=== PATIENT | female | born 1950 | race Caucasian/White ===

== ENCOUNTER 2022-04-05 20:30 | Emergency (ER) | payer MEDICARE, BC, SELFPAY ==
[2022-04-05 20:54] VITALS: BP 155/74; PULSE 63; TEMP 36.4; O2SAT 95; BMI 45.5
--- NOTE | 2022-04-05 21:34 | ED.NURSE ---
Vomited on arrival to ED room.
[2022-04-05 23:02] LABS: PCR FLU A Negative PCR FLU A (Negative); PCR FLU B Negative PCR FLU B (Negative); PCR RSV POSITIVE PCR RSV (Negative)
[2022-04-05 23:06] VITALS: BP 138/71; RESP 18
[2022-04-05 23:10] LABS: SARS PCR* Negative SARS-CoV-2 (Negative)
--- NOTE | 2022-04-05 23:34 | ED_ITS ---
HPI - URI/Sore Throat General Chief Complaint: Cough Stated Complaint: Coughing,Vomiting,Weakness Time Seen by Provider: 04/05/22 21:28 History of Present Illness HPI Narrative: Pt is a 72 year old woman who comes in with a 4 day history of cough. No significant fever has been noted. The cough is nonproductive. She has been eating and drinking without difficulty. Pt has no shortness of breath. Pt has no rash. She has developed nonbloody vomiting today. Pt has no abd pain or change in her bowels. No other pain. Pt has taken no medications at home. Related Data Home Medications Medication Instructions Recorded Confirmed albuterol sulfate 90 mcg/actuation inhalation 04/05/22 aerosol inhaler (Ventolin HFA) amlodipine 5 mg tablet mg 04/05/22 bupropion HCl 150 mg tablet,12 hr mg PO 04/05/22 sustained-release chlorthalidone 25 mg tablet mg 04/05/22 fluticasone 232 mcg-salmeterol 14 inh inhalation 04/05/22 mcg/actuation breath activated powdr gabapentin 300 mg capsule mg 04/05/22 metoprolol succinate 25 mg mg PO 04/05/22 tablet,extended release 24 hr montelukast 10 mg tablet mg 04/05/22 potassium chloride 10 mEq meq PO 04/05/22 tablet,extended release rosuvastatin 10 mg tablet mg 04/05/22 Allergies Allergy/AdvReac Type Severity Reaction Status Date / Time fentanyl Allergy Nausea Verified 04/05/22 20:59 asprin Allergy Severe Anaphylaxis Uncoded 04/05/22 20:59 Review of Systems Status of ROS: Reports: 10 or more systems reviewed and unremarkable except as noted in History and below [facility] Medical History (Updated 04/05/22 @ 23:41 by Ruiz Kitchen MD) Asthma Depression Hyperlipidemia Hypertension Social History Smoking Status: Former smoker Second hand tobacco smoke exposure: No How often do you have a drink containing alcohol: never AUDIT-C Alcohol total score: 0 Non-prescribed substance use: denies use service: No Exam Narrative: Exam Narrative: EXAM GENERAL: Patient appears comfortable and well. EYES: No scleral icterus. ENT: Tympanic membranes and oropharynx normal. THYROID: no thyroid nodules or thyromegaly. LYMPH: No supraclavicular or cervical lymphadenopathy. SKIN: Visible skin seen during exam normal or with benign process only. EXT: No dependent lower extremity pedal edema. HEART: Regular rate and rhythm with no murmurs, rubs, or gallops. LUNGS: Clear to auscultation bilaterally with no crackles or wheezes. ABD: Soft, non tender, non distended. PSYCH: Good eye contact, speech is not pressured. Const: Vital Signs, click to edit/add: Vital Signs - 24 hr 04/05/22 20:54 04/05/22 23:06 Temperature 97.5 F L Pulse Rate [Pulse Oximeter] 63 Respiratory Rate 18 Blood Pressure [[facility] Upper [facility]] 155/74 H 138/71 Pulse Oximetry 95 Oxygen Delivery Me thod Room Air Course Course Hospital Course: Pt seen and examined. Viral testing positive for RSV and negative for Influenza and COVID. Vital Signs Vital signs: Initial Vital Signs Temperature 97.5 F L 04/05/22 20:54 Temperature Source Oral 04/05/22 20:54 Pulse Rate 63 04/05/22 20:54 Blood Pressure 155/74 H 04/05/22 20:54 Blood Pressure Mean 101 04/05/22 20:54 Pulse Oximetry 95 04/05/22 20:54 Oxygen Delivery Method 04/05/22 20:54 Vital Signs Temperature 97.5 F L 04/05/22 20:54 Pulse Rate 63 04/05/22 20:54 Blood Pressure 155/74 H 04/05/22 20:54 Pulse Oximetry 95 04/05/22 20:54 Oxygen Delivery Method 04/05/22 20:54 Temperature 97.5 F L 04/05/22 20:54 Pulse Rate 63 04/05/22 20:54 Respiratory Rate 18 04/05/22 23:06 Blood Pressure 138/71 04/05/22 23:06 Pulse Oximetry 95 04/05/22 20:54 Oxygen Delivery Method 04/05/22 20:54 MDM - URI/Sore Throat MDM Narrative Medical decision making narrative: Pt presents with cough for four days. Normal exam and vital signs. No hypoxia. Testing positive for RSV. Will treat symptomatically with addition of Zofran ODT with PCP follow up. Differential Diagnosis Differential diagnosis: Likely upper respiratory infection, otitis media, sinusitis, viral infection, bronchitis and influenza Lab Data Labs: Lab Results 04/05/22 Range/Units 21:10 SARS-CoV-2 (PCR) Negative SARS-CoV-2 (Negative) Influenza Type A (PCR) Negative PCR FLU A (Negative) Influenza Type B (PCR) Negative PCR FLU B (Negative) RSV (PCR) POSITIVE PCR RSV A (Negative) Discharge Plan Discharge Clinical Impression: Respiratory syncytial virus (RSV) Patient Disposition: Home, Self-Care Condition: Stable Instructions: Respiratory Syncytial Virus (ED) Additional Instructions: Zofran as needed for vomiting Tyelnol Motrin Rest OTC Robitussin DM as directed Activity Level: No Restrictions Discharge Diet: Regular Prescriptions: No Action bupropion HCl 150 mg tablet sustained-release 12 hr PO Label Comments: TAKE ONE TABLET BY MOUTH TWICE DAILY amlodipine 5 mg tablet Label Comments: TAKE ONE TABLET BY MOUTH ONE TIME DAILY albuterol sulfate [Ventolin HFA] 90 mcg/actuation HFA aerosol inhaler INHALATION Label Comments: Inhale 2 Puffs by mouth every 4 hours if needed for Shortness of Breath or Wheezing. potassium chloride 10 mEq tablet extended release PO Label Comments: TAKE TWO TABLETS by mouth TWICE DAILY WITH MEALS chlorthalidone 25 mg tablet Label Comments: TAKE ONE TABLET BY MOUTH ONE TIME DAILY gabapentin 300 mg capsule Label Comments: TAKE TWO CAPSULES BY MOUTH DAILY AT BEDTIME montelukast 10 mg tablet Label Comments: TAKE ONE TABLET BY MOUTH ONE TIME DAILY AT BEDTIME metoprolol succinate 25 mg tablet extended release 24 hr PO Label Comments: TAKE ONE TABLET BY MOUTH ONE TIME DAILY rosuvastatin 10 mg tablet Label Comments: TAKE ONE TABLET BY MOUTH ONE TIME DAILY AT BEDTIME fluticasone propion-salmeterol 232-14 mcg/actuation aerosol powdr breath activated INHALATION Label Comments: INHALE ONE PUFF BY MOUTH TWICE DAILY Follow Up/Referrals: Suellen Chavira DO [Primary Care Provider] - Stand Alone Forms: [employer] Info Instructions
[2022-04-05 23:48] VITALS: BP 126/82; PULSE 72; RESP 20
== END 2022-04-05 23:50 | disposition home or self-care (01) ==
PROVIDERS: Emergency Provider Internal Medicine; PCP Family Medicine
DX: R05.9 Cough, unspecified (principal); B97.4 Respiratory syncytial virus as the cause of diseases classified elsewhere
CPT/HCPCS: 87502; 87634; 87635; 99283

== ENCOUNTER 2023-02-27 09:15 | Outpatient (CLI) | payer MEDICARE, BC, SELFPAY ==
--- NOTE | 2023-02-27 10:30 | W.ANESCHARGE ---
Anesthesia Charges Start Date/Time Anesthesia Start Date: 02/27/23 Anesthesia Start Time: 10:03 Stop Date/Time Anesthesia Stop Date: 02/27/23 Anesthesia Stop Time: 10:30
== END 2023-02-27 09:16 | disposition home or self-care (01) ==
LOC: OP CLINIC 09:16
PROVIDERS: PCP Family Medicine; Visit Provider Internal Medicine Gastroenterology
DX: Z12.11 Encounter for screening for malignant neoplasm of colon (principal); K63.5 Polyp of colon; Z85.038 Personal history of other malignant neoplasm of large intestine; Z98.0 Intestinal bypass and anastomosis status
CPT/HCPCS: 00811; 45380; 88305; J2704

== ENCOUNTER 2023-03-24 10:51 | Outpatient (CLI) | payer MEDICARE, BC, SELFPAY ==
--- NOTE | 2023-03-24 11:00 | CRLHL7_ITS ---
For Patients: As a result of the Century Cures Act, medical imaging exams and procedure reports are released immediately into your electronic medical record. You may view this report before your referring provider. If you have questions, please contact your health care provider. Indication: Dyspnea on exertion Technique: Noncontrast CT chest Please note that all CT scans at this facility use dose modulation, iterative reconstruction, and/or weight-based dosing when appropriate to reduce radiation dose to as low as reasonably achievable. Comparison: 12/01/2020 Findings: Chronic changes left hemithorax with chronic loculated pleural fluid collection with dystrophic calcification of the visceral and parietal pleura. Chronic scarring within the left lung. No new findings. Similar lymph nodes in the mediastinum and left adnexa. Postop changes upper abdomen. No fracture. Impression: No significant change since the prior examination with chronic loculated left pleural effusion and calcified pleura. Stable scarring left lower lobe. Please note that all CT scans at this facility use dose modulation, iterative reconstruction, and/or weight-based dosing when appropriate to reduce radiation dose to as low as reasonably achievable. Dictated by Kobe Quach MD @ 03/24/2023 3:38:54 PM (Electronically Signed)
== END 2023-03-24 10:52 | disposition home or self-care (01) ==
LOC: CT 10:51
PROVIDERS: PCP Family Medicine; Visit Provider Internal Medicine Pulmonary Disease
DX: R06.09 Other forms of dyspnea (principal); J90 Pleural effusion, not elsewhere classified
CPT/HCPCS: 71250

== ENCOUNTER 2023-05-23 13:43 | Outpatient (CLI) | payer MEDICARE, BC, SELFPAY ==
--- OUTSIDE RECORDS SUMMARY | 2023-05-26 16:43 | XMS_ITS | Clinical Summary ---
Author Name Unknown Organization [facility] Address [place], [place] [address] Care Team Providers Care Automatic Fabric Cutter Name Role Phone Suellen Chavira DO Primary Care Provider [phone] Allergies Active Allergy Reactions Criticality Noted Date [...] Encounters Date Type Department Care Team Description 05/24/2023 4:00 PM [facility] Ancillary Procedure [facility] [address] [place] [address] Arrived 05/24/2023 Orders Only [facility] Scanner 1 scan: (1-Ord) [facility], CHEST, 05/24/2023 05/23/2023 Orders Only [facility] Scanner 1 scan: (1-Ord) [facility], CT FACIAL BONES WO CON, 05/23/2023 05/23/2023 Orders Only [facility] Scanner 1 scan: (1-Ord) [place], HEAD/BRAIN WO, 05/23/2023 05/23/2023 Orders Only [facility] Scanner 1 scan: (1-Ord) [facility], XR KNEE RT, 05/23/2023 05/23/2023 Orders Only [facility] Scanner 1 scan: (1-Ord) [facility], XR SHOULDER LT, 05/23/2023 05/23/2023 Orders Only [facility] Scanner 1 scan: (1-Ord) [place], CERVICAL SPINE WO, 05/23/2023 04/06/2023 3:20 PM [facility] HAND Ancillary Procedure [facility] [address] [place] [address] 04/06/2023 Travel 03/28/2023 Orders Only [facility] [address] [place] [address] Charlie Masters, 1 scan: (1-Ord) [place], CT CHEST WO CON, 03/24/2023 03/16/2023 11:30 AM [facility] HAND Office Visit [facility] [address] [place] [address] Charlie Masters DO Consult; Follow Up (Testing review/completes) 03/16/2023 Telephone [facility] [address] [facility] [address] [facility] [address] [place] [address] Charlie Masters, Imaging (Needs CT chest) 03/15/2023 Travel 02/27/2023 9:15 AM [facility] HAND Procedure Only [facility] [address] [place] [address] Bertin Hill MD 02/27/2023 Lab Requisition [facility] [phone] Bertin Hill MD 02/23/2023 Refill [facility] [address] [place] [address] Bertin Hill MD Refill Request (Gavilyte-g) from Last 3 Months Immunizations Name Administration Dates Next Due AMB INFLUENZA IIV3 (AGE 65+ YRS) PF (Flu Clinic Only) 01/30/2018 Amb Influenza, Inactivated A IIV4 (Age 65+ Years) Preserv Free 01/27/2020 COVID-19 Vaccine Spikevax (M oderna 50mcg/0.5mL) 12YO+ [id number] Formula PF 02/21/2023 COVID-19 vaccine (Moderna 10 [...] Comments Blood Pressure 128/82 03/16/2023 11:41 AM [facility] Pulse 70 03/16/2023 11:41 AM [facility] HAND Temperature 36.8 ??C (98.2 ??F) 02/21/2023 10:[address] Respiratory Rate 18 10/05/2017 3:57 PM CDT Oxygen Saturation 95% 03/16/2023 11:41 AM [facility] HAND Inhaled Oxygen Concentration - - Weight 132 kg (291 lb) 03/16/2023 11:41 AM [facility] Height 160 cm (5' 3) 03/16/2023 11:41 AM [facility] HAND Body Mass Index 51.55 03/16/2023 11:41 AM [facility] HAND Plan of Treatment Upcoming Encounters Date Type Department Care Team (Late st Contact Info) Description 05/30/2023 2:20 PM [facility]LL HAND Office Visit [facility] [address] [place] [address] Suellen Chavira DO [address] [facility] [place] [address] Health Maintenance Due Date Last Done Comments Influenza for age 65+ 12/16/2022 12/02/2022 , 01/25/2022, 01/30/2021, Additional history exists Medicare Wellness for age 65+ 10/11/2023, 10/07/2021, 10/06/2020, Additional history exists Depression screening for age 12+ 11/17/2023 11/16/2022, 10/10/2022, 10/10/2022, Additional history exists BMI (ht and wt on same day) for age 18+ 03/16/2024 03/16/2023, 11/16/2022, 10/10/2022, Additional history exists Mammogram for age 45-75 04/06/2024 04/06/20, 03/14/2022, 03/08/2021, Additional history exists Lipids for age 45-75 10/11/2027 10/10/2022, 09/09/2021, 10/06/2020, Additional history exists Colonoscopy through age 75 02/28/202802/27, 02/27/2023, 10/16/2017, Additional history exists Tetanus booster 09/28/2030 09/28/2020, 07/2008, 01/06/1999 Hepatitis C screening for ag e 18-79 Completed 08/02/2013 Pneumococcal series for age 65+ Completed 9, 09/21/2016 Zoster (shingles) series for age 50+ Completed 09/11/2020, 04/24/2020, 03/08/2011 Tdap Completed 09/28/2020, 08/18/2008 DEXA/DXA scan for age 65+ Completed 2021, 09/22/2016, 08/31/2007 COVID-19 vaccine series Completed 02/22/20, 12/02/2022, 01/25/2022, Additional history exists Medical Devices Implanted Type Area Software Deployment Engineer Device Identifier Shelf Expiration Date Model / Serial / Lot Stent Biliary 10-5 Jamie Helton - [id number] Implanted:Qty: 1 on 09/27/2006 at [facility] Common Bile Duct [employer] [facility] CHBSO-10-5 # / / [id number] Procedures Procedure Name Priority Date/Time Associated Diagnosis Comments ECHO TTE COMPLETE WO CONTRAST Routine 05/24/2023 12:00 PM [facility] HAND New onset a-fib (HC) SCAN-RADIOLOGY REPORT 05/24/2023 12:00 AM [facility] HAND SCAN-CT INTERPRETATION 4 12:00 AM [facility] HAND SCAN-CT INTERPRETATION 4 12:00 AM [facility] HAND SCAN-RADIOLOGY REPORT 05/23/2023 12:00 AM SA[facility] HAND SCAN-RADIOLOGY REPORT 05/23/2023 12:00 AM [facility] HAND SCAN-CT INTERPRETATION 12:00 AM [facility] HAND XR MAMMO BILAT SCREENING Routine 04/06/2023 3:38 PM [facility] HAND Encounter for screening mammogram for malignant neoplasm of breast CT CHEST WO Routine 03/24/2023 12:00 AM [facility] HAND POWELL (dyspnea on exertion) Pleural effusion on left LAB TRACKING EVENT Routine 02/27/2023 10 :20 AM [facility] HAND PATH TISSUE EXAM Routine 02/27/2023 10:2 0 AM [facility] HAND COLONOSCOPY SCREENING Routine 02/27/2023 12:00 AM [facility] HAND Screening for colon cancer from Last 3 Months Results * ECHO TTE COMPLETE WO CONTRAST (05/24/2023 12:00 PM [facility] HAND) AORTIC VALVE MEAN PG 3 mmHg PEAK TR VELOCITY 3.1 m/s LVEDD 4.8 cm EJECTION FRACTION 55 - 60% Anatomical Region Laterality Modality Ultrasound 05/24/2023 11:2 6 AM [facility] HAND Narrative 05/24/2023 12:35 PM [facility] HAND ECHOCARDIOGRAM STUART M MARCUS ?Accession#: ?? [id number] : ?1950 73 years Study Date: ?? 05/24/2023 11:26:41 AM Gender: F ? BP: ? 134/75 mmHg Height: 160.00 cm ? BSA: ?2.25 m? ? ? Weight: 130.00 kg ? Tech: ? MCK ?Referring MD: FARZANA VALDES Site: ? [facility] Reading Location: [facility] Patient Location: Inpatient. Procedure: 2D, Color Doppler and Spectral Doppler. Indication for study: New onset Afib Cardiac Rhythm: Irregular.Study quality: Fair. Imaging limitations: This study was subject to imaging limitations due to lying in a supine position, body habitus and a prominent lung artifact. Final Impressions: 1. Normal LV size, mildly increased wall thickness, normal global systolic function with an estimated EF of 55 - 60%. 2. Right ventricular cavity size is not well visualized, global systolic RV function is normal. 3. Normal left atrium size. 4. The aortic valve is normal, no stenosis and trivial regurgitation. 5. The mitral valve is sclerotic, trace mitral regurgitation. 6. Tricuspid valve is normal. 7. The ascending aorta is dilated with a maximal diameter of 4.5 cm. 8. Moderately increased estimated pulmonary pressures by tricuspid regurgitation velocity and right atrial pressure (37 mmHg plus RAP). 9. No pericardial effusion. Chamber Sizes and Function Normal left ventricular size, mildly increased wall thickness, normal global systolic function with an estimated EF of 55 - 60%. Left atrial size is normal. Right ventricular cavity size is not well visualized, global systolic RV function is normal. The right atrium is normal. The pulmonary artery is of normal size and origin. The sinus of Valsalva is normal sized. The ascending aorta is dilated. Valves, RV Pressures and Diastolic Function The aortic valve is normal in structure, no stenosis and trivial regurgitation. The mitral valve is sclerotic, trace mitral regurgitation. Diastolic function assessment not performed. The tricuspid valve is normal in structure. Tricuspid regurgitation is mild regurgitation. The tricuspid regurgitant velocity is 3.1 m/s, the estimated right ventricular systolic pressure is 37 mmHg plus right atrial pressure. There is moderately increased estimated pulmonary pressure by tricuspid regurgitation velocity and right atrial pressure. The pulmonic valve is normal. Mild pulmonary regurgitation. Masses, Effusion, Shunts There is no pericardial effusion. The inferior vena cava is normal sized, respiratory size variation greater than 50%. Interatrial septum is not well visualized. MEASUREMENTS AND CALCULATIONS 2-D Measurements and LV Function: LVID (d) 4.8 cm LV FS% (2D) ?? 40 % LVID (s) 2.9 cm LVOT diameter 2.0 cm IVS (d) ??1.3 cm HR ?57 bpm LVPW (d) 1.0 cm RV Max 4C (d) 4.0 cm Ao Sinus 3.5 cm Asc Ao ?? 4.5 cm LA ? 5.3 cm Diastology: Mitral E Peak 1.0 m/s DT ? 193 msec Aortic Valve: Vmax ? 1.3 m/s ??SANCHEZ (V) ?? 2.22 cm? ? ? VTI ?0.29 m ?? SANCHEZ (I) ?? 2.19 cm? ? ? LVOT V max 0.9 m/s ??Max PG ?6 mmHg LVOT VTI ?? 0.20 m ?? Mean PG ?? 3 mmHg SV ? 63 ml ?Dim Index 0.70 SV index ?? 28 ml/m? ? ? CO ?3.6 l/min ?CI ?1.6 l/min/m? ? ? Mitral Valve: MVA ?3.9 cm? ? ? MV P 1/2 56 msec Tricuspid Valve and estimated PA pressures: TR Vmax 3.1 m/s TAPSE 3.0 cm TR maxG 37 mmHg . This study was interpreted by an [facility] accredited facility. CC: HIM (med records) [facility], Med/Surg - IP [facility]. ??Final ?? Procedure Note Marcy Juarez, [facility] - 05/24/2023 ECHOCARDIOGRAM STUART RITTER : 1950 73 years Study Date: 05/24/2023 11:26:41 AM Gender: F BP: 134/75 mmHg Height: 160.00 cm BSA: 2.25 m? ? ? Weight: 130.00 kg Tech: [facility] Referring MD: FARZANA VALDES Site: [facility] Reading Location: [facility] Patient Location: Inpatient. Procedure: 2D, Color Doppler and Spectral Doppler. Indication for study: New onset Afib Cardiac Rhythm: Irregular.Study quality: Fair. Imaging limitations: This study was subject to imaging limitations due tolying in a supine position, body habitus and a prominent lung artifact. Final Impressions: 1. Normal LV size, mildly increased wall thickness, normal globalsystolic function with an estimated EF of 55 - 60%. 2. Right ventricular cavity size is not well visualized, global systolicRV function is normal. 3. Normal left atrium size. 4. The aortic valve is normal, no stenosis and trivial regurgitation. 5. The mitral valve is sclerotic, trace mitral regurgitation. 6. Tricuspid valve is normal. 7. The ascending aorta is dilated with a maximal diameter of 4.5 cm. 8. Moderately increased estimated pulmonary pressures by tricuspidregurgitation velocity and right atrial pressure (37 mmHg plus RAP). 9. No pericardial effusion. Chamber Sizes and Function Normal left ventricular size, mildly increased wall thickness, normalglobal systolic function with an estimated EF of 55 - 60%. Left atrialsize is normal. Right ventricular cavity size is not well visualized,global systolic RV function is normal. The right atrium is normal. Thepulmonary artery is of normal size and origin. The sinus of Valsalva isnormal sized. The ascending aorta is dilated. Valves, RV Pressures and Diastolic Function The aortic valve is normal in structure, no stenosis and trivialregurgitation. The mitral valve is sclerotic, trace mitral regurgitation.Diastolic function assessment not performed. The tricuspid valve is normalin structure. Tricuspid regurgitation is mild regurgitation. The tricuspidregurgitant velocity is 3.1 m/s, the estimated right ventricular systolicpressure is 37 mmHg plus right atrial pressure. There is moderatelyincreased estimated pulmonary pressure by tricuspid regurgitation velocityand right atrial pressure. The pulmonic valve is normal. Mild pulmonaryregurgitation. Masses, Effusion, Shunts There is no pericardial effusion. The inferior vena cava is normal sized,respiratory size variation greater than 50%. Interatrial septum is notwell visualized. MEASUREMENTS AND CALCULATIONS 2-D Measurements and LV Function: LVID (d) 4.8 cm LV FS% (2D) 40 % LVID (s) 2.9 cm LVOT diameter 2.0 cm IVS (d) 1.3 cm HR 57 bpm LVPW (d) 1.0 cm RV Max 4C (d) 4.0 cm Ao Sinus 3.5 cm Asc Ao 4.5 cm LA 5.3 cm Diastology: Mitral E Peak 1.0 m/s DT 193 msec Aortic Valve: Vmax 1.3 m/s SANCHEZ (V) 2.22 cm? ? ? VTI 0.29 m SANCHEZ (I) 2.19 cm? ? ? LVOT V max 0.9 m/s Max PG 6 mmHg LVOT VTI 0.20 m Mean PG 3 mmHg SV 63 ml Dim Index 0.70 SV index 28 ml/m? ? ? CO 3.6 l/min CI 1.6 l/min/m? ? ? Mitral Valve: MVA 3.9 cm? ? ? MV P 1/2 56 msec Tricuspid Valve and estimated PA pressures: TR Vmax 3.1 m/s TAPSE 3.0 cm TR maxG 37 mmHg . This study was interpreted by an [facility] accredited facility. CC: HIM (med records) [facility], Med/Surg - IP [facility]. Final Farzana Valdes MD ECHO ORD * SCAN-RADIOLOGY REPORT (05/24/2023 12:00 AM [facility] HAND) Only the most recent of3 resultswithin the time period is included. Anatomical Region Laterality Modality Other Scanner OTHER * SCAN-CT INTERPRETATION (05/23/2023 12:00 AM [facility] HAND) Only the most recent of3 resultswithin the time period is included. Anatomical Region Laterality Modality Other Scanner OTHER * XR MAMMO BILAT SCREENING (04/06/2023 3:38 PM [facility] HAND) Anatomical Region Laterality Modality BREASTS, Breast Left, Breast Right Bilateral Mammography Impressions 04/07/2023 9:15 AM SA[facility]LL HAND ??There is no radiographic evidence for malignancy. ??Recommend annual mammograms. MAMMOGRAM ASSESSMENT: ??ACR 1 Negative PATIENTS: You will also receive a letter with your examination results in an easy to read format. ??If you have questions about your results, please contact your referring provider. Narrative 04/07/2023 9:15 AM [facility] HAND For Patients: As a result of the Cures Act, medical imaging exams and procedure reports are released immediately into your electronic medical record. You may view this report before your referring provider. If you have questions, please contact your health care provider. XR MAMMO BILAT SCREENING [[id number]] CLINICAL HISTORY: ??This is an asymptomatic 73 y.o. patient. INDICATION FOR EXAM: Mammogram Screening. TECHNIQUE: CC & MLO views were obtained. ??This study was evaluated with the assistance of Computer-Aided Detection. COMPARISON FILM: Yes 03/14/22 [employer] 03/08/21 [facility] [employer] FINDINGS: ??The breasts have scattered areas of fibroglandular density. There are no dominant masses, suspicious micro calcifications or areas of architectural distortion. Suellen Chavira DO MAMMO * CT CHEST WO (03/24/2023 12:00 AM [facility] HAND) Anatomical Region Laterality Modality CHEST, THORAX, HEART Computed To mography Charlie Masters DO CT * LAB TRACKING EVENT (02/27/2023 10:20 AM [facility] HAND) Other (Other) Client Collect / Unknown 02/27/2023 10:20 AM [facility] HAND 02/27/2023 9:28 PM [facility] HAND Bertin Hill MD LAB BILL ONLY [facility] [address] [place] [address], * PATH TISSUE EXAM (02/27/2023 10:20 AM SA[facility] HAND) Case Report Pathology Report ?Case: [id number] ? Authorizing Provider: ??Bertin Hill MD ?? Collected: ? 02/27/2023 1020 ? Ordering Location: ? [facility] ?Received: ?02/28/2023 1215 ? Pathologist: ? Dwain Shah, ? MD ? Specimens: ?? A) - Transverse Colon Polyp ? B) - Rectal-Sigmoid Polyp ? 2023 4:10 PM SA[facility]LL HAND [facility]AL LABORATORY Final Diagnosis A) COLON, [...] ?? c. Retrieval: Complete 2023 4:[address] [facility] Clinical Information Ms. Ritter is a 73 y.o. undergoing high risk colon cancer surveillance due to a personal history of colon cancer. 2023 4:[address] [facility] Gross Description A) Received in formalin are 3 aivles mucosal fragments averaging 3 mm in greatest [...] Han 02/28/2023 1:26 PM 2023 4:10 PM [facility] Microscopic Description The final diagnosis is based on microscopic examination of appropriate sections of all specimens. 2023 4:10 PM [facility] Additional Information Interpreted at [facility], Central Laboratory - [address], [place] [address] 2023 4:10 PM [facility] Other (Transverse Colon Polyp) 02/27/2023 10:20 AM SA[facility]LL HAND 02/28/2023 12:15 PM [facility] HAND Specimen (specimen) (Rectal-Sigmoid Polyp) 02/27/2023 10:20 AM SA[facility]LL HAND 02/28/2023 12:15 PM [facility] HAND Bertin Hill MD PATHOLOGY/CYTOLOG Y [facility] [address] [place] [address], * COLONOSCOPY SCREENING [[id number]] (02/27/2023 12:00 AM SAW[facility]LL HAND) Suellen Chavira DO GI PROCEDURE ORD from Last 3 Months Advance Directives Documents on File Type Date Recorded Patient Manager Valuation Expl anation Healthcare Directive 07/02/2012 1:17 PM [employer] OF TRICHOLOGIST FOR HEALTH CARE Latest Code Status on File Code Status Date Activated Date Inactivated Comments Full Code 09/27/2006 10:32 AM 09/27/2006 3:46 PM Care Teams Automatic Fabric Cutter Relationship Specialty Start Date End Date Suellen Chavira DO [address] [place] [address] PCP - General Family Practice 10/16/17
--- OUTSIDE RECORDS SUMMARY | 2023-05-26 16:44 | XMS_ITS | Clinical Summary ---
Author Name Unknown Organization [facility] Address [address] [place], [place] [id number] Phone [email or web address] Care Team Providers Care Factory Worker Name Role Phone Unavailable Primary Care Provider [...]
== END 2023-05-23 13:44 | disposition home or self-care (01) ==
LOC: AMB 05-26 16:40
PROVIDERS: PCP Family Medicine; Visit Provider Student in an Organized Health Care Education/Training Program
DX: S59.912A Unspecified injury of left forearm, initial encounter (principal); S09.93XA Unspecified injury of face, initial encounter; W01.0XXA Fall on same level from slipping, tripping and stumbling without subsequent striking against object, initial encounter; Y92.002 Bathroom of unspecified non-institutional (private) residence as the place of occurrence of the external cause
CPT/HCPCS: A0425; A0427

== ENCOUNTER 2023-05-23 14:37 | Observation (INO) | payer MEDICARE, BC, SELFPAY ==
[2023-05-23 14:45] VITALS: BP 136/59; PULSE 57; RESP 22; TEMP 36.6; O2SAT 92; BMI 50.5
[2023-05-23] MEDS: MORPHINE 4 MG/ML INJ IVP ×2 (15:05→16:51)
--- NOTE | 2023-05-23 15:05 | CRLHL7_ITS ---
For Patients: As a result of the Century Cures Act, medical imaging exams and procedure reports are released immediately into your electronic medical record. You may view this report before your referring provider. If you have questions, please contact your health care provider. Indication: Fall Technique: Noncontrast axial CT of the facial bones, with coronal and sagittal reformats. Comparison: Same day CT head Findings: Mildly comminuted bilateral nasal bone fractures. No radiopaque foreign body or suspicious soft tissue air. No obvious nasal septal fracture or septal hematoma. Intact inferior nasal spine of the maxilla. Remaining facial bones appear grossly intact. Atraumatic appearance of the orbits and orbital contents. Bilateral lens implants. Aside from small left posterior ethmoid air cell mucous retention cyst, clear sinonasal cavities. Smooth rightward nasal septal deviation, anatomic variant. Shallow rightward projecting nasal septal spur, slightly deforming the right inferior turbinate. Clear mastoid air cells and middle ear cavities. Impression: 1. Mildly comminuted bilateral nasal bone fractures. 2. No evidence of nasal septal fracture or significant septal hematoma. Please note that all CT scans at this facility use dose modulation, iterative reconstruction, and/or weight-based dosing when appropriate to reduce radiation dose to as low as reasonably achievable. Dictated by Gina Conn MD @ 05/23/2023 4:54:48 PM (Electronically Signed)
--- NOTE | 2023-05-23 15:05 | CRLHL7_ITS ---
For Patients: As a result of the Century Cures Act, medical imaging exams and procedure reports are released immediately into your electronic medical record. You may view this report before your referring provider. If you have questions, please contact your health care provider. INDICATION: Tenderness after fall. COMPARISON: None. TECHNIQUE: Two views of the left shoulder. FINDINGS: Osteopenia. Moderate degenerative changes of the glenohumeral and acromioclavicular joints. Moderately displaced fracture of the surgical neck of the left humerus. Partial visualization of small to moderate loculated left pleural effusion, which was described on CT report 09/25/2006. IMPRESSION: 1. Moderately displaced fracture of the surgical neck of the left humerus. 2. Partial visualization of small to moderate loculated left pleural effusion, which was described on CT report 09/25/2006. These images are not available for direct comparison. Consider dedicated chest radiograph for further evaluation. Dictated by Zackery Kent MD @ 05/23/2023 5:44:06 PM (Electronically Signed)
--- NOTE | 2023-05-23 15:05 | CRLHL7_ITS ---
For Patients: As a result of the Century Cures Act, medical imaging exams and procedure reports are released immediately into your electronic medical record. You may view this report before your referring provider. If you have questions, please contact your health care provider. INDICATION: Fall TECHNIQUE: Noncontrast axial CT of the head. Coronal and sagittal reformats. Bone and soft tissue algorithms. COMPARISON: Same-day CT face FINDINGS: The ventricles and cortical sulci are diffusely prominent, compatible with generalized cerebral volume loss. No acute intracranial hemorrhage or abnormal extra-axial fluid collection identified. No midline shift, hydrocephalus, or herniation. Preserved patton-white matter differentiation. Patchy hypoattenuation throughout the supratentorial white matter, typical of chronic microangiopathy. Calcific and cranial atherosclerotic plaquing. Midline structures are unremarkable. Bony calvarium appears grossly intact. Hyperostosis frontalis interna. Facial structures are detailed in a separate report. IMPRESSION: 1. No CT evidence of skull fracture or acute intracranial hemorrhage. 2. Moderate generalized cerebral volume loss and mild chronic microangiopathy changes. Please note that all CT scans at this facility use dose modulation, iterative reconstruction, and/or weight-based dosing when appropriate to reduce radiation dose to as low as reasonably achievable. Dictated by Gina Conn MD @ 05/23/2023 4:50:29 PM (Electronically Signed)
--- NOTE | 2023-05-23 15:05 | CRLHL7_ITS ---
For Patients: As a result of the Century Cures Act, medical imaging exams and procedure reports are released immediately into your electronic medical record. You may view this report before your referring provider. If you have questions, please contact your health care provider. Indication: Fall Technique: Noncontrast axial CT of the cervical spine with coronal and sagittal reformats. Comparison: Same day CT head Findings: Door Liner Helper images demonstrate atypical appearance of the left proximal humerus, concerning for age-indeterminate fracture. Preserved cervical lordosis. No significant spondylolisthesis. Craniocervical junction appears within normal limits. No acute fracture identified. Chronic appearing superior endplate deformity at T1, attributed to degenerative Schmorl`s node. Incidental presumed bone island at C3. Shallow central disc protrusion at C2-3 contributing to mild spinal canal narrowing. Remainder of the spinal canal appears grossly patent. No high-grade neural foraminal narrowing identified. No apical pneumothorax identified. Impression: 1. Deformed appearance of the left proximal humerus on the saw offbearer images, concerning for age-indeterminate fracture. 2. No CT evidence of acute fracture or traumatic malalignment in the cervical spine. Please note that all CT scans at this facility use dose modulation, iterative reconstruction, and/or weight-based dosing when appropriate to reduce radiation dose to as low as reasonably achievable. Dictated by Gina Conn MD @ 05/23/2023 5:01:40 PM (Electronically Signed)
--- OUTSIDE RECORDS SUMMARY | 2023-05-23 15:05 | XMS_ITS | Clinical Summary ---
Author Name Unknown Organization [facility] Address [place], [place] [address] Care Team Providers Care Linen Tech Name Role Phone Suellen Chavira DO Primary Care Provider [phone] Allergies Active Allergy Reactions Criticality Noted Date Comments Aspirin Angioedema 04/20/2005 Throat swells. Lips swell- per patient tolerated ibuprofen Fentanyl Nausea And Vomiting 11/08/2006 *had small amount, tolerated well* Lisinopril Hives Medium 11/30/2017 Medications Medication Sig Dispensed Refills Start Date End Date Status Cholecalciferol, Vitamin D3, (VITAMIN D) 400 unit capsule Take 2,000 units by mouth once daily. 0 08/02/2010 Active loratadine 10 mg cap Take 1 Capsule by mouth at bedtime. 0 07/22/2021 Active CPAPIndications:CLARISSA (obstructive sleep apnea) CPAP machine for home use at pressure 5-15cm/H2O, nasal mask x1/3month with nasal cushion x2/mo 1 Each 11 06/07/2022 Active rosuvastatin (CRESTOR) 10 mg tabletIndications:Hy perlipidemia, unspecified hyperlipidemia type Take 1 Tablet (10 mg) by mouth at bedtime. 90 Tablet 3 10/10/2022 Active potassium chloride (K-TAB) 10 mEq extended-release tabletIndications:HT N (hypertension) TAKE TWO TABLETS BY MOUTH TWICE A DAY WITH MEALS 360 Tablet 3 10/10/2022 Active montelukast (SINGULAIR) 10 mg tabletIndications:Se asonal allergies Take 1 Tablet (10 mg) by mouth at bedtime. 90 Tablet 3 10/10/2022 Active gabapentin (NEURONTIN) 300 mg capsuleIndications:R estless legs TAKE TWO CAPSULES BY MOUTH EVERY DAY AT BEDTIME 180 Capsule 3 10/10/2022 Active fluticasone propion-salmeterol (AIRDUO RESPICLICK) 232-14 mcg/actuation inhalerIndications:A sthma, unspecified asthma severity, unspecified whether complicated, unspecified whether persistent Inhale 1 Puff by mouth two times daily. 3 Each 10/10/2022 Active chlorthalidone (HYGROTON) 25 mg tabletIndications:HT N (hypertension) Take 1 Tablet (25 mg) by mouth once daily. 90 Tablet 3 10/10/2022 Active amLODIPine (NORVASC) 5 mg tabletIndications:HT N (hypertension) Take 1 Tablet (5 mg) by mouth once daily. 90 Tablet 10/10/2022 Active albuterol HFA (Ventolin HFA) 90 mcg/actuation inhalerIndications:C hronic bronchitis, unspecified chronic bronchitis type (HC) Inhale 2 Puffs by mouth every 4 hours if needed for Shortness of Breath 1st choice or Wheezing 1st choice. 1 Each 1 10/10/2022 Active buPROPion (WELLBUTRIN XL) 150 mg Extended-Release tabletIndications:De pression, recurrent (HC) Take 150mg with 300mg to equal 450mg daily 90 Tablet 3 10/10/2022 Active metoprolol succinate (TOPROL XL) 25 mg Sustained-Release tabletIndications:HT N (hypertension) Take 1 Tablet (25 mg) by mouth once daily. 90 Tablet 10/10/2022 Active buPROPion (WELLBUTRIN XL) 300 mg Extended-Release tabletIndications:Dy sthymic disorder Take 300mg with 150mg daily to equal 450mg daily. 90 Tablet 3 10/10/2022 Active miscellaneous medical supply (Blood Pressure Cuff) miscIndications:HTN (hypertension) As directed. BP cuff for home use. Diagnosis: Hypertension 1 Each 0 02/21/2023 Active polyethylene glycol-electrolyte (GOLYTELY) 236-22.74-6.74 -5.86 gram suspensionIndication s:Encounter for screening colonoscopy Drink 2 liters the day before the procedure and 2 liters 6 hours prior to procedure. 4000 mL 0 02/23/2023 Active calcium carbonate/vitamin D3 (CALCIUM CHEW ORAL) Take 1 Each by mouth two times daily. 0 Active Active Problems Problem Noted Date Diagnosed Date Chronic bronchitis, unspecified chronic bronchit is type 04/26/2022 Depression, recurrent 10/07/2021 Obesity, morbid 10/07/2021 History of colon cancer 10/07/2021 Overview: Colonoscopy 02/2023 TA, repeat in 5 years CLARISSA 11/11/2020 AHI-45 nasal mask - standard 12/14 Restless legs syndrome (RLS) 12/14/2020 Asthma 12/14/2020 ACP (advance care planning) 07/02/2012 Overview: Has done living will. Vitamin D deficiency 09/14/2011 Knee osteoarthritis 08/19/2011 Unspecified essential hypertension 08/12/2006 Dysthymic disorder 08/12/2006 Resolved Problems Problem Noted Date Diagnosed Date Resolved Date COPD, moderate 05/07/2019 12/14/2020 Overview: Saw Pulmonology and diagnosed with asthma and not COPD- October 2020 On PFTs Apr 2019, started on sprivia and albuterol Osteoarthrosis, unspecified whether generalized or localized, lower leg 01/26/2011 05/0 07/2011 Malignant neoplasm of colon, unspecified site 08/13/19 07 10/07/2021 Overview: stage C disease with positive nodes, treated with surgical resection and adjuvant FOLFOX chemo x 6 months Colonoscopy every 3 years per recommendation of oncology. See most recent PJ brown note. Colonoscopy 07/2012 normal repeat in 5 years Colonoscopy 10/2017 hyperplastic polyp, repeat in 5 years Unspecified sleep apnea 08/12/200611/17 Encounters Date Type Department Care Team Description 04/06/2023 3:20 PM PRODUCT SAFETY MANAGER Ancillary Procedure [facility] [address] [place] [address] 04/06/2023 Travel 03/28/2023 Orders Only [facility] [address] [place] [address] Charlie Masters, DO 1 scan: (1-Ord) BRITTANY, CT CHEST WO CON, 03/24/2023 03/16/2023 11:30 AM PRODUCT SAFETY MANAGER Office Visit [facility] [address] [place] [address] Charlie Masters DO Consult; Follow Up (Testing review/completes) 03/16/2023 Telephone [facility] [address] [place] [phone] Charlie Masters DO Imaging (Needs CT chest) 03/15/2023 Travel 02/27/2023 9:15 AM PRODUCT SAFETY MANAGER Procedure Only [facility] at [facility] [address] [place] [address] Bertin Hill MD 02/27/2023 Lab Requisition [facility] [phone] Bertin Hill MD 02/23/2023 Refill [facility] [address] [place] [address] Bertin Hill MD Refill Request (Gavilyte-g) 02/21/2023 10:25 AM PRODUCT SAFETY MANAGER Preop Visit [facility] [address] [place] [address] Suellen Chavira DO Pre-Op Exam (colonoscopy 02/27/23); Immunization/Inject ion 02/21/2023 Travel from Last 3 Months Immunizations Name Administration Dates Next Due AMB INFLUENZA IIV3 (AGE 65+ YRS) PF (Flu Clinic Only) 01/30/2018 Amb Influenza, Inactivated A IIV4 (Age 65+ Years) Preserv Free 01/27/2020 COVID-19 Vaccine Spikevax (M oderna 50mcg/0.5mL) 12YO+ [id number] Formula PF 02/21/2023 COVID-19 vaccine (Moderna 10 0mcg/0.5mL) PF, MDV 07/10/2020,06/12/2020 COVID-19 vaccine (Moderna 50 mcg/0.5mL) 12YO+ BIVALENT PF, MDV 12/02/2022 Influenza A (H1N1), Inactivated 05/05/2009 Influenza, High-dose Quadriv alent Inactivated 12/02/2022,01/25/2022,01/30/2021 Influenza, IIV3 (Age 6-35 mos) 02/19/2009 Influenza, IIV3 (Age >=3 years) 02/05/2014,01/15 Influenza, Inactivated IIV3 (Age 65+ Years) Preserv Free 01/04/2019,01/25/2017 Pneumococcal Poly,23-Valent (Pneumovax) 10/02/19 19 Pneumococcal conj 13-Valent (Prevnar 13) 017 Td (Age >=7 Years) 01/06/1999 Tdap 09/28/2020,08/18/2008 Zoster (Shingrix-RZV, recombinant) 09/11/2020, Zoster (Zostavax-ZVL, live) 03/08/2011 Family History Medical History Relation Name Comments Cancer-colon Brother Other Brother shanda's disea se Cancer-colon Father Cancer-colon Mother Stroke Paternal Grandfather Heart Disease Paternal Grandmother pacema ker Cancer-breast No Family History Cancer-ovarian No Family History Diabetes No Family History Relation Name Status Comments Brother Father (Age 74) colon canc er Mother (Age 87) colon canc er Paternal Grandfather Paternal Grandmother Social History Tobacco Use Types Packs/Day Years Used Date Smoking Tobacco: Former Cigarettes 1.5 21 0 12/16/1968 - 12/16/1989 Smokeless Tobacco: Never Tobacco Cessation:Counseling Given: Not Answered Alcohol Use Standard Drinks/Week Comments Not Currently 0 (1 standard drink = 0.6 oz pure alcohol) quit alcohol 1990, used to drink excessively PHQ-2 Answer Date Recorded PHQ-2 TOTAL SCORE 1 11/16/2022 Social Connections Answer Date Recorded Frequency of Communication with Friends and Fami ly Not on file 05/01/2023 Financial Resource Strain Answer Date R ecorded Difficulty of Paying Living Expenses 3 10/06/2021 Difficulty of Paying Living Expenses Not on file 10/06/2021 Food Insecurity Answer Date Recorded Worried About Running Out of Food in the Last Ye ar 1 10/06/2021 Transportation Needs Answer Date Record ed Lack of Transportation (Medical) 1 10/06/2021 Housing Stability Answer Date Recorded Unable to Pay for Housing in the Last Year 1 10/06/2021 Sex and Gender Information Value Date Recorded Sex Assigned at Female 06/28/2020 4:27 PM CDT Gender Identity Female 06/28/2020 4:27 PM CDT Sexual Orientation Straight 06/28/2020 4: 27 PM CDT Obstetrics History Para Term AB IAB SAB Ectopic Multiple Livin g Live Births 0 0 0 0 0 0 0 0 0 0 Last Filed Vital Signs Vital Sign Reading Time Taken Comments Blood Pressure 128/82 03/16/2023 11:41 AM PRODUCT SAFETY MANAGER Pulse 70 03/16/2023 11:41 AM PRODUCT SAFETY MANAGER Temperature 36.8 ??C (98.2 ??F) 02/21/2023 10:[address] Respiratory Rate 18 10/05/2017 3:57 PM CDT Oxygen Saturation 95% 03/16/2023 11:41 AM PRODUCT SAFETY MANAGER Inhaled Oxygen Concentration - - Weight 132 kg (291 lb) 03/16/2023 11:41 AM PRODUCT SAFETY MANAGER Height 160 cm (5' 3) 03/16/2023 11:41 AM PRODUCT SAFETY MANAGER Body Mass Index 51.55 03/16/2023 11:41 AM PRODUCT SAFETY MANAGER Plan of Treatment Health Maintenance Due Date Last Done Comments Influenza for age 65+ 12/16/2022 12/02/2022 , 01/25/2022, 01/30/2021, Additional history exists Medicare Wellness for age 65+ 10/10/2023, 10/07/2021, 10/06/2020, Additional history exists Depression screening for age 12+ 11/17/2023 11/16/2022, 10/10/2022, 10/10/2022, Additional history exists BMI (ht and wt on same day) for age 18+ 03/16/2024 03/16/2023, 11/16/2022, 10/10/2022, Additional history exists Mammogram for age 45-75 04/06/2024 04/06/20 23, 03/14/2022, 03/08/2021, Additional history exists Lipids for age 45-75 10/11/2027 10/10/2022, 09/09/2021, 10/06/2020, Additional history exists Colonoscopy through age 75 02/28/202802/27, 02/27/2023, 10/16/2017, Additional history exists Tetanus booster 09/28/2030 09/28/2020, 05/07/2008, 01/06/1999 Hepatitis C screening for ag e 18-79 Completed 08/02/2013 Pneumococcal series for age 65+ Completed 9, 09/21/2016 Zoster (shingles) series for age 50+ Completed 09/11/2020, 04/24/2020, 03/08/2011 Tdap Completed 09/28/2020, 08/18/2008 DEXA/DXA scan for age 65+ Completed 2021, 09/22/2016, 08/31/2007 COVID-19 vaccine series Completed 02/22/20, 12/02/2022, 01/25/2022, Additional history exists Medical Devices Implanted Type Area Title Insurance Sales Representative Device Identifier Shelf Expiration Date Model / Serial / Lot Stent Biliary 10-5 Jamie Shavere - [id number] Implanted:Qty: 1 on 09/27/2006 at [facility] Common Bile Duct [facility] # / / [id number] Procedures Procedure Name Priority Date/Time Associated Diagnosis Comments XR MAMMO BILAT SCREENING Routine 04/06/2023 3:38 PM PRODUCT SAFETY MANAGER Encounter for screening mammogram for malignant neoplasm of breast CT CHEST WO Routine 03/24/2023 12:00 AM PRODUCT SAFETY MANAGER POWELL (dyspnea on exertion) Pleural effusion on left LAB TRACKING EVENT Routine 02/27/2023 10 :20 AM PRODUCT SAFETY MANAGER PATH TISSUE EXAM Routine 02/27/2023 10:2 0 AM PRODUCT SAFETY MANAGER COLONOSCOPY SCREENING Routine 02/27/2023 12:00 AM PRODUCT SAFETY MANAGER Screening for colon cancer POTASSIUM Routine 02/21/2023 12:04 PM PRODUCT SAFETY MANAGER HTN (hypertension) from Last 3 Months Results * XR MAMMO BILAT SCREENING (04/06/2023 3:38 PM PRODUCT SAFETY MANAGER) Anatomical Region Laterality Modality BREASTS, Breast Left, Breast Right Bilateral Mammography Impressions 04/07/2023 9:15 AM PRODUCT SAFETY MANAGER ??There is no radiographic evidence for malignancy. ??Recommend annual mammograms. MAMMOGRAM ASSESSMENT: ??ACR 1 Negative PATIENTS: You will also receive a letter with your examination results in an easy to read format. ??If you have questions about your results, please contact your referring provider. Narrative 04/07/2023 9:15 AM PRODUCT SAFETY MANAGER For Patients: As a result of the Century Cures Act, medical imaging exams and procedure reports are released immediately into your electronic medical record. You may view this report before your referring provider. If you have questions, please contact your health care provider. XR MAMMO BILAT SCREENING [[id number]] CLINICAL HISTORY: ??This is an asymptomatic 73 y.o. patient. INDICATION FOR EXAM: Mammogram Screening. TECHNIQUE: CC & MLO views were obtained. ??This study was evaluated with the assistance of Computer-Aided Detection. COMPARISON FILM: Yes 03/14/22 [place] 03/08/21 [facility] FINDINGS: ??The breasts have scattered areas of fibroglandular density. There are no dominant masses, suspicious micro calcifications or areas of architectural distortion. Suellen Chavira DO MAMMO * CT CHEST WO (03/24/2023 12:00 AM PRODUCT SAFETY MANAGER) Anatomical Region Laterality Modality CHEST, THORAX, HEART Computed To mography Charlie Masters DO CT * LAB TRACKING EVENT (02/27/2023 10:20 AM PRODUCT SAFETY MANAGER) Other (Other) Client Collect / Unknown 02/27/2023 10:20 AM PRODUCT SAFETY MANAGER 02/27/2023 9:28 PM PRODUCT SAFETY MANAGER Bertin Hill MD LAB BILL ONLY [facility] [address] [place] [address], * PATH TISSUE EXAM (02/27/2023 10:20 AM PRODUCT SAFETY MANAGER) Case Report Pathology Report ?Case: [id number] ? Authorizing Provider: ??Bertin Hill MD ?? Collected: ? 02/27/2023 1020 ? Ordering Location: ? [facility] ?Received: ?02/28/2023 1215 ? Pathologist: ? Dwain Shah, ? MD ? Specimens: ?? A) - Transverse Colon Polyp ? B) - Rectal-Sigmoid Polyp ? 2023 4:10 PM PRODUCT SAFETY MANAGER [facility] Final Diagnosis A) COLON, TRANSVERSE, POLYPECTOMIES: 1. Tubular adenomas (2) 2. Negative for high grade dysplasia 3. Per the colonoscopy report: ?? a. Polyp sizes: 3 mm ?? b. Resection: Complete ?? c. Retrieval: Complete B) COLON, RECTOSIGMOID, POLYPECTOMIES: 1. Tubular adenoma (1) and hyperplastic polyp (1) 2. Negative for high grade dysplasia 3. Per the colonoscopy report: ?? a. Polyp sizes: 2 mm - 3 mm ?? b. Resection: Complete ?? c. Retrieval: Complete 2023 4:10 PM PRODUCT SAFETY MANAGER [facility] Clinical Information Ms. Ritter is a 73 y.o. undergoing high risk colon cancer surveillance due to a personal history of colon cancer. 2023 4:10 PM PRODUCT SAFETY MANAGER [facility] Gross Description A) Received in formalin are 3 aviles mucosal fragments averaging 3 mm in greatest dimension, which are entirely submitted in one cassette. It is labeled with the patient's name and designated colon-transver se polyps. B) Received in formalin are 3 aviles mucosal fragments averaging 3 mm in greatest dimension, which are entirely submitted in one cassette. It is labeled with the patient's name and designated recto-sigmoid polyps. Sabina Han 02/28/2023 1:26 PM 2023 4:10 PM PRODUCT SAFETY MANAGER [facility] Microscopic Description The final diagnosis is based on microscopic examination of appropriate sections of all specimens. 2023 4:10 PM PRODUCT SAFETY MANAGER [facility] Additional Information [facility] at [facility] - [address] [facility] [address] [address] 2023 4:10 PM PRODUCT SAFETY MANAGER [facility] Other (Transverse Colon Polyp) 02/27/2023 10:20 AM PRODUCT SAFETY MANAGER 02/28/2023 12:15 PM PRODUCT SAFETY MANAGER Specimen (specimen) (Rectal-Sigmoid Polyp) 02/27/2023 10:20 AM PRODUCT SAFETY MANAGER 02/28/2023 12:15 PM PRODUCT SAFETY MANAGER Bertin Hill MD PATHOLOGY/CYTOLOG [facility] [address] [place] [address], * COLONOSCOPY SCREENING [[id number]] (02/27/2023 12:00 AM PRODUCT SAFETY MANAGER) Suellen Chavira DO GI PROCEDURE ORD * POTASSIUM (02/21/2023 12:04 PM PRODUCT SAFETY MANAGER) POTASSIUM 3.7 3.5 - 5.1 mmol/L 02/22/2023 9:53 AM PRODUCT SAFETY MANAGER [facility] Blood BLOOD SPECIMEN / Unknown Venipuncture / Unknown 02/21/2023 12:04 PM PRODUCT SAFETY MANAGER 02/21/2023 12:04 PM PRODUCT SAFETY MANAGER Suellen Chavira DO CHEMISTRY [facility] [address] [place] [address], from Last 3 Months Advance Directives Documents on File Type Date Recorded Patient Acid Plant Helper Expl anation Healthcare Directive 07/02/2012 1:17 PM [employer]ERR[employer] POWER OF FOLDING MACHINE TENDER FOR HEALTH CARE Latest Code Status on File Code Status Date Activated Date Inactivated Comments Full Code 09/27/2006 10:32 AM 09/27/2006 3:46 PM Care Teams Linen Tech Relationship Specialty Start Date End Date Suellen Chavira DO [address] [place] [address] PCP - General Family Practice 10/16/17
--- OUTSIDE RECORDS SUMMARY | 2023-05-23 15:05 | XMS_ITS | Clinical Summary ---
Author Name Unknown Organization [facility] Address [address] [place], [place] [id number] Phone [email or web address] [email or web address] Care Ball Sorter Name Role Phone Unavailable Primary Care Provider Unavailabl e Active Problems Problem Noted Date Diagnosed Date Hypertension 05/12/2015 Overview: Immunizations Name Administration Dates Next Due Influenza PF Tri (CVX - 140) 01/20/2016 Influenza Tri (CVX - 141) 03/04/2015 Social History Tobacco Use Types Packs/Day Years Used Date Smoking Tobacco: Former Cigarettes Q uit: 04/17/1990 Sex and Gender Information Value Date Recorded Sex Assigned at Not on file Gender Identity Not on file Sexual Orientation Not on file Last Filed Vital Signs Vital Sign Reading Time Taken Comments Blood Pressure 118/80 10/12/2015 3:04 PM CDT Pulse 66 10/12/2015 3:04 PM CDT Temperature - - Respiratory Rate - - Oxygen Saturation - - Inhaled Oxygen Concentration - - Weight 120 kg (264 lb) 07/16/2015 2:12 PM CDT Height 162.6 cm (5' 4) 07/16/2015 2:12 PM CDT Body Mass Index 45.32 07/16/2015 2:12 PM CDT Plan of Treatment Health Maintenance Due Date Last Done Comments Covid-19 Immunization (#1) 1951 Tetanus (Tdap or Td) Immunization 1962 Breast Cancer Screening 1981 Colorectal Cancer Screening 1981 Osteoporosis screening DEXA 2001 Zoster Immunization (1 of 2) 2001 RSV Immunization >= 60 yrs o ld (1 - 1-dose 60+ series) 2011 Pneumococcal: 65+ Years (1 - PCV) 2016 Influenza Immunization (#1) 2022 HIB Immunization Aged Out No longer e ligible based on patient's age to complete this topic HPV Immunization Aged Out No longer e ligible based on patient's age to complete this topic Hepatitis A Immunization Aged Out No longer eligible based on patient's age to complete this topic Hepatitis B Immunization Aged Out No longer eligible based on patient's age to complete this topic Polio Immunization Aged Out No longer eligible based on patient's age to complete this topic
--- NOTE | 2023-05-23 15:19 | ED_ITS ---
HPI - General Adult General Date Seen: 05/23/23 Chief complaint: Extremity Pain/Injury, Upper Stated complaint: fall Time Seen by Provider: 05/23/23 14:40 Source: patient Mode of arrival: EMS Limitations: no limitations History of Present Illness HPI narrative: Patient is a 73-year-old female with no pertinent medical problems presenting to emergency department after a fall. She is having construction done her house and she said she tripped over the rug. She was not having any lightheadedness or dizziness before or immediately after the fall. She states she landed on her face. States most her pain is to her left shoulder and arm at this time. Has also noticed some increased pain to her right knee compared to baseline. She was given some morphine by EMS and she was feeling a little bit dizzy after that. She is otherwise acting normally. No other concerns noted. Denies neck or back pain. Related Data Home Medications Medication Instructions Recorded Confirmed albuterol sulfate 90 mcg/actuation inhalation 04/05/22 aerosol inhaler (Ventolin HFA) amlodipine 5 mg tablet mg 04/05/22 bupropion HCl 150 mg tablet,12 hr mg PO 04/05/22 sustained-release chlorthalidone 25 mg tablet mg 04/05/22 fluticasone 232 mcg-salmeterol 14 inh inhalation 04/05/22 mcg/actuation breath activated powdr gabapentin 300 mg capsule mg 04/05/22 metoprolol succinate 25 mg mg PO 04/05/22 tablet,extended release 24 hr montelukast 10 mg tablet mg 04/05/22 potassium chloride 10 mEq meq PO 04/05/22 tablet,extended release rosuvastatin 10 mg tablet mg 04/05/22 bupropion HCl 150 mg 24 hr tablet, 150 mg PO DAILY 05/23/23 05/23/23 extended release fluticasone 250 mcg-salmeterol 50 1 inh inhalation BID 05/23/23 05/23/23 mcg/dose blistr powdr for inhalation (Advair Diskus) Allergies Allergy/AdvReac Type Severity Reaction Status Date / Time aspirin Allergy Severe Anaphylaxis Verified 05/23/23 15:02 fentanyl Allergy Nausea Verified 04/05/22 20:59 Review of Systems Status of ROS: Reports: 10 or more systems reviewed and unremarkable except as noted in History and below [facility] Medical History Hyperlipidemia ?E78.5 - Hyperlipidemia, unspecified (ICD-10) Depression ?F32.A - Depression, unspecified (ICD-10) Hypertension ?I10 - Essential (primary) hypertension (ICD-10) Asthma ?J45.909 - Unspecified asthma, uncomplicated (ICD-10) Social History Smoking Status: Former smoker Second hand tobacco smoke exposure: No How often do you have a drink containing alcohol: never AUDIT-C Alcohol total score: 0 Non-prescribed substance use: denies use service: No Exam Narrative: Exam Narrative: Const: Well-nourished, Well-developed, in moderate distress Eyes: PERRL, no conjunctival injection, and symmetrical lids HENT: Atraumatic external nose and ears. Moist mucous membranes. Neck: Symmetric, trachea midline, No thyromegaly. CVS: RRR, No murmurs or gallops. Peripheral pulses 2+ and equal in all extremities RESP: Unlabored respiratory effort. Clear to auscultation bilaterally. GI: Nontender/Nondistended, No rebound or guarding. MSK: Tenderness to left elbow and left shoulder, no obvious deformity seen on initial exam, tenderness to right knee, no tenderness noted to spine Skin: Warm, Dry. No rashes or lesions. Neuro: Normal Muscle tone, No focal neurological deficits. Psych: Awake, Alert, & Oriented x3. Appropriate mood and affect. Const: Vital Signs, click to edit/add: Vital Signs - 24 hr 05/23/23 14:45 05/23/23 16:52 Temperature 97.8 F Pulse Rate [Pulse Oximeter] 57 L 58 L Respiratory Rate 22 22 Blood Pressure [Ri ght Upper Arm] 136/59 L 115/47 L Pulse Oximetry 92 97 Oxygen Delivery Me thod Room Air Course Vital Signs Vital signs: Initial Vital Signs Temperature 97.8 F 05/23/23 14:45 Temperature Source Temporal Artery Scan 05/23/23 14:45 Pulse Rate 57 L 05/23/23 14:45 Respiratory Rate 22 05/23/23 14:45 Blood Pressure 136/59 L 05/23/23 14:45 Blood Pressure Mean 84 05/23/23 14:45 Blood Pressure Position Supine 05/23/23 14:45 Pulse Oximetry 92 05/23/23 14:45 Oxygen Delivery Method Room Air 05/23/23 14:45 Vital Signs Temperature 97.8 F 05/23/23 14:45 Pulse Rate 57 L 05/23/23 14:45 Respiratory Rate 22 05/23/23 14:45 Blood Pressure 136/59 L 05/23/23 14:45 Pulse Oximetry 92 05/23/23 14:45 Oxygen Delivery Method Room Air 05/23/23 14:45 Temperature 97.8 F 05/23/23 14:45 Pulse Rate 58 L 05/23/23 16:52 Respiratory Rate 22 05/23/23 16:52 Blood Pressure 115/47 L 05/23/23 16:52 Pulse Oximetry 97 05/23/23 16:52 Oxygen Delivery Method Room Air 05/23/23 14:45 Medications Administered Medications: Discontinued Medications Generic Name Dose Route Start Last Admin Trade Name Freq PRN Reason Stop Dose Admin Morphine Sulfate 4 mg 05/23/23 15:00 05/23/23 15:05 Morphine 4 Mg/Ml Inj IVP 05/23/23 15:01 4 mg ONCE ONE Administration Morphine Sulfate 4 mg 05/23/23 16:15 05/23/23 16:51 Morphine 4 Mg/Ml Inj IVP 05/23/23 16:16 4 mg ONCE ONE Administration Oxycodone/Acetaminophen 1 tab 05/23/23 17:27 05/23/23 17:52 Oxycodone/Apap 5-325 Tablet PO 05/23/23 17:28 1 tab ONCE ONE Administration Medical Decision Making [facility] Narrative Medical decision making narrative: Patient is a 73-year-old female presenting after a fall. Sounds like it was a mechanical fall and no associated symptoms causing the fall. Considering the me chanism action in her age group do CT scan head, cervical spine, facial bones. We will also x-ray the right knee, left shoulder and left elbow. She was having more pain so more morphine was given. Left shoulder shoulder x-ray shows a proximal humeral fracture in a sling was placed. She states her dizziness has fully resolved but her pain is getting worse. Another 4 mg of morphine was given. CT scans reviewed by myself showed no acute intracranial abnormalities. There are no acute cervical spine injuries. Facial bone does have a bilateral nasal bone fracture. X-ray of the left shoulder shows a mildly displaced fracture of the surgical neck. It does show part of a pleural effusion. Patient is not having any shortness of breath and I do not believe further imaging of this is necessary at this time I did speak to orthopedics about the fracture and they say it is nonsurgical at this time. Patient states she has too much pain at this time and cannot be safe at home. I spoke to Dr. Valdes and he accepted the patient for admission. Imaging Data CT scan head: Radiologist's impression: 1. No CT evidence of skull fracture or acute intracranial hemorrhage. 2. Moderate generalized cerebral volume loss and mild chronic microangiopathy changes. Please note that all CT scans at this facility use dose modulation, iterative reconstruction, and/or weight-based dosing when appropriate to reduce radiation dose to as low as reasonably achievable. Dictated by Gina Conn MD @ 05/23/2023 4:50:[address] scan cervical spine: Radiologist's impression: 1. Deformed appearance of the left proximal humerus on the revenue field agent images, concerning for age-indeterminate fracture. 2. No CT evidence of acute fracture or traumatic malalignment in the cervical spine. Please note that all CT scans at this facility use dose modulation, iterative reconstruction, and/or weight-based dosing when appropriate to reduce radiation dose to as low as reasonably achievable. Dictated by Gina Conn MD @ 05/23/2023 5:01:[address] scan facial bones: Radiologist's impression: 1. Mildly comminuted bilateral nasal bone fractures. 2. No evidence of nasal septal fracture or significant septal hematoma. Please note that all CT scans at this facility use dose modulation, iterative reconstruction, and/or weight-based dosing when appropriate to reduce radiation dose to as low as reasonably achievable. Dictated by Gina Conn MD @ 05/23/2023 4:54:48 PM X-ray left shoulder: Radiologist's impression: 1. Moderately displaced fracture of the surgical neck of the left humerus. 2. Partial visualization of small to moderate loculated left pleural effusion, which was described on CT report 09/25/2006. These images are not available for direct comparison. Consider dedicated chest radiograph for further evaluation. Dictated by Zackery Kent MD @ 05/23/2023 5:44:06 PM X-ray right knee: Radiologist's impression: No acute fracture or malalignment. No appreciable joint effusion. Osteoarthritic degenerative changes of the knee to include severe medial joint space narrowing with large subchondral cyst seen at the tibial plateau, mild patellofemoral joint space narrowing, and tricompartmental osteophyte formation. Patellar enthesophytes. Dictated by Trey Redd MD @ 05/23/2023 5:42:22 PM Discharge Plan Discharge Clinical Impression: Fracture of humerus Qualifiers: Encounter type: initial encounter Humerus Location: proximal Fracture type: closed Laterality: right Patient Disposition: Admitted As Observation Discharge Location: [facility] Condition: Stable Instructions: Arm Fracture in Adults (DC) Additional Instructions: Wear the sling at all times. Follow-up with orthopedics. Return to emergency department for new or worsened symptoms. Take Tylenol and ibuprofen for pain. If that is not working you can use oxycodone. Be aware though that the oxycodone can cause you become lightheaded and dizzy and does increase your fall risk Prescriptions: No Action bupropion HCl 150 mg tablet sustained-release 12 hr PO Patient Comments: TAKE ONE TABLET BY MOUTH TWICE DAILY amlodipine 5 mg tablet Patient Comments: TAKE ONE TABLET BY MOUTH ONE TIME DAILY albuterol sulfate [Ventolin HFA] 90 mcg/actuation HFA aerosol inhaler INHALATION Patient Comments: Inhale 2 Puffs by mouth every 4 hours if needed for Shortness of Breath or Wheezing. potassium chloride 10 mEq tablet extended release PO Patient Comments: TAKE TWO TABLETS by mouth TWICE DAILY WITH MEALS chlorthalidone 25 mg tablet Patient Comments: TAKE ONE TABLET BY MOUTH ONE TIME DAILY gabapentin 300 mg capsule Patient Comments: TAKE TWO CAPSULES BY MOUTH DAILY AT BEDTIME montelukast 10 mg tablet Patient Comments: TAKE ONE TABLET BY MOUTH ONE TIME DAILY AT BEDTIME metoprolol succinate 25 mg tablet extended release 24 hr PO Patient Comments: TAKE ONE TABLET BY MOUTH ONE TIME DAILY rosuvastatin 10 mg tablet Patient Comments: TAKE ONE TABLET BY MOUTH ONE TIME DAILY AT BEDTIME fluticasone propion-salmeterol 232-14 mcg/actuation aerosol powdr breath activated INHALATION Patient Comments: INHALE ONE PUFF BY MOUTH TWICE DAILY bupropion HCl 150 mg tablet extended release 24 hr 150 mg PO DAILY fluticasone propion-salmeterol [Advair Diskus] 250-50 mcg/dose blister with device 1 inh inhalation BID Follow Up/Referrals: Suellen Chavira DO [Primary Care Provider] - Stand Alone Forms: [facility] [facility] Info Instructions
--- NOTE | 2023-05-23 15:20 | CRLHL7_ITS ---
For Patients: As a result of the Cures Act, medical imaging exams and procedure reports are released immediately into your electronic medical record. You may view this report before your referring provider. If you have questions, please contact your health care provider. Indication: Fall Technique: Three views of the right knee Comparison: None. Findings/Impression: No acute fracture or malalignment. No appreciable joint effusion. Osteoarthritic degenerative changes of the knee to include severe medial joint space narrowing with large subchondral cyst seen at the tibial plateau, mild patellofemoral joint space narrowing, and tricompartmental osteophyte formation. Patellar enthesophytes. Dictated by Trey Redd MD @ 05/23/2023 5:42:22 PM (Electronically Signed)
[2023-05-23 16:52] VITALS: BP 115/47; PULSE 58; RESP 22; O2SAT 97
--- NOTE | 2023-05-23 17:16 | ED.NURSE ---
Patient complains of 9/10 pain despite morphine x2. MD notified.
[2023-05-23] MEDS: OxyCODONE/APAP 5-325 TABLET 1 TAB PO (17:52)
[2023-05-23] MEDS: ONDANSETRON 2 MG/ML inj 4 MG IVP (18:11)
--- NOTE | 2023-05-23 18:40 | ED.NURSE ---
report given to Shara wen, pt will transfer to room 258 via wheelchair.
[2023-05-23 20:00] LABS: Lab Add On Test New Spec Needed
[2023-05-23 20:14] VITALS: BP 120/56; PULSE 65; RESP 20; TEMP 36.4; O2SAT 94; BMI 51.1
[2023-05-23] MEDS: PROCHLORPERAZINE 5 MG/ML VIAL IV (20:21)
[2023-05-23 20:39] LABS: Basophils Percent Auto 0.1 % (0.0-3.0); Eosinophils Percent Auto 0.1 % (0.0-7.0); Hematocrit 45.3 % (33.0-51.0); Hemoglobin* 14.4 gm/dL (12.0-16.0); Immature Granulocytes Pct Auto 0.5 %; Lymphocytes Percent Auto 4.9 % (20-44); Mean Corpuscular HGB Conc 32 gm/dL (32-36); Mean Corpuscular Hemoglobin 28 pg (26-34); Mean Corpuscular Volume 88 fL (80-100); Monocytes Percent Auto 4.9 % (0.0-11.0); Neutrophils Percent Auto 89.5 % (42.0-72.0); Platelet Count* 236 K/uL (140-440); RDW Coefficient of Variation % 14.5 % (11.5-15.5); Red Blood Count 5.15 m/uL (4.00-5.20); White Blood Count* 14.61 K/uL (4.50-11.00)
--- NOTE | 2023-05-23 20:40 | P.IMHP_ITS ---
Hospitalist- H&P: HPI History of Present Illness Date Seen: 05/23/23 Chief complaint: fall Narrative: Mona Ritter is a 73 year old Right-handed female with obesity, sleep apnea, asthma, hypertension, hyperlipidemia, depression admitted through the emergency department after a fall at home injuring her left shoulder. Patient is having a walk-in shower installed in her bathroom. She walked into the construction area to check on the work and tripped falling on her bilateral knees, left shoulder and striking her nose. she had no loss of consciousness. She had a nose bleed and severe pain in her left shoulder. She also had some discomfort in her knees but was able to ambulate. She reports feeling fine today prior to her accident. No recent illness or other injury. In the emergency department she was diagnosed with a impacted displaced surgical neck fracture of the left humerus. she has a mildly displaced nasal fracture. No acute abnormalities on head CT, cervical spine CT, knee radiograph. She received morphine And oxycodone for pain and has subsequently had recurrent and persistent nausea and vomiting. Previous history of nausea and vomiting from fentanyl. she has an allergy to aspirin but tolerates ibuprofen without difficulties. In the hospital she was diagnosed with atrial fibrillation. This is a new diagnosis. No previous history of atrial fibrillation or heart disease. No history of stroke. She had an echocardiogram about 3 and half years ago which showed a dilated aorta but otherwise no significant abnormalities. She has hypertension, hyperlipidemia, obstructive sleep apnea on CPAP and obesity. Review of Systems Narrative: no other recent illness or injury [facility] Medical History (Updated 05/23/23 @ 21:17 by Tom Valdes MD) Disability Hypokalemia ?E87.6 - Hypokalemia (ICD-10) Pleural effusion ?J90 - Pleural effusion, not elsewhere classified (ICD-10) Elevated blood sugar ?R73.9 - Hyperglycemia, unspecified (ICD-10) Atrial fibrillation ?I48.91 - Unspecified atrial fibrillation (ICD-10) Colon cancer ?C18.9 - Malignant neoplasm of colon, unspecified (ICD-10) Osteoarthritis of both knees ?M17.0 - Bilateral primary osteoarthritis of knee (ICD-10) Morbid obesity with BMI of 50.0-59.9, adult ?E66.01 - Morbid (severe) obesity due to excess calories (ICD-10) ?Z68.43 - Body mass index [BMI] 50.0-59.9, adult (ICD-10) Obstructive sleep apnea ?G47.33 - Obstructive sleep apnea (adult) (pediatric) (ICD-10) Hyperlipidemia ?E78.5 - Hyperlipidemia, unspecified (ICD-10) Depression ?F32.A - Depression, unspecified (ICD-10) Hypertension ?I10 - Essential (primary) hypertension (ICD-10) Asthma ?J45.909 - Unspecified asthma, uncomplicated (ICD-10) Surgical History (Updated 05/23/23 @ 21:05 by Tom Valdes MD) History of tonsillectomy and adenoidectomy ?Z90.89 - Acquired absence of other organs (ICD-10) History of colostomy reversal ?Z98.890 - Other specified postprocedural states (ICD-10) History of colonoscopy ?Z98.890 - Other specified postprocedural states (ICD-10) History of colectomy ?Z90.49 - Acquired absence of other specified parts of digestive tract (ICD- 10) History of cholecystectomy ?Z90.49 - Acquired absence of other specified parts of digestive tract (ICD- 10) Family History (Updated 05/23/23 @ 21:07 by Tom Valdes MD) Other Colon cancer Social History (Updated 05/23/23 @ 21:07 by Tom Valdes MD) Narrative: patient lives alone in a town home in [place]. She lives on 1 level. Recent remodeling of her bathroom to have a walk-in shower. She fell today inspecting the remodeling work. She does not smoke. She quit smoking in 1989. She does not drink alcohol. Code status is full. Healthcare power of energy attorney is her brother Scottie Ritter of [place] What is your current living situation?: I presently have a place to live Problems where you live: no known problems Problems where you live details: n/a In the past 12 months, utilities in danger of being shut off: no In past 12 months, lack of transportation kept you from medical appts, meetings, work, or getting things needed for daily living: no In the past 12 mos, have been you worried that your food would run out before you had money to buy more?: never true In the past 12 mos, the food you bought just didn't last and you didn't have money to buy more?: never true Highest level of school completed/degree received: Doctoral degree Smoking Status: Former smoker Second hand tobacco smoke exposure: No How often do you have a drink containing alcohol: never AUDIT-C Alcohol total score: 0 Non-prescribed substance use: denies use Caffeine: Yes How often does anyone, including family, friends and others, physically hurt you : never How often does anyone, including family, friends and others, insult or talk down to you: never How often does anyone, including family, friends and others, threaten you with harm: never How often does anyone, including family, friends and others, scream or curse at you: never service: No Meds Home Medications and Allergies Home Medications Medication Instructions Recorded Confirmed Type albuterol sulfate 90 mcg/actuation inhalation 04/05/22 History aerosol inhaler (Ventolin HFA) amlodipine 5 mg tablet mg 04/05/22 History bupropion HCl 150 mg tablet,12 hr mg PO 04/05/22 History sustained-release chlorthalidone 25 mg tablet mg 04/05/22 History fluticasone 232 mcg-salmeterol 14 inh inhalation 04/05/22 History mcg/actuation breath activated powdr gabapentin 300 mg capsule mg 04/05/22 History metoprolol succinate 25 mg mg PO 04/05/22 History tablet,extended release 24 hr montelukast 10 mg tablet mg 04/05/22 History potassium chloride 10 mEq meq PO 04/05/22 History tablet,extended release rosuvastatin 10 mg tablet mg 04/05/22 History bupropion HCl 150 mg 24 hr tablet, 150 mg PO DAILY 05/23/23 05/23/23 History extended release fluticasone 250 mcg-salmeterol 50 1 inh inhalation BID 05/23/23 05/23/23 History mcg/dose blistr powdr for inhalation (Advair Diskus) Allergies Allergy/AdvReac Type Severity Reaction Status Date / Time aspirin Allergy Severe Anaphylaxis Verified 05/23/23 15:02 fentanyl Allergy Nausea Verified 04/05/22 20:59 Exam Narrative: Exam Narrative: she is alert and appears in no distress. She gives her own history. Eyes normal. Oropharynx with small airway. Neck is supple without mass or adenopathy. She has bruising and swelling without obvious deformity over the bridge of her nose. Small eschar there. respirations are clear to auscultation. Cardiovascular: S1, S2, Irregularly irregular rhythm. Distant heart sounds. Abdomen is soft without tenderness or mass. Right upper extremity is normal. Left upper extremity has mild swelling without obvious deformity bruising over the proximal humerus. Distally she has intact strength and sensation and pulses in her wrist and hand. Bilateral lower extremities with large legs and prominent edema. Const: Vital Signs, click to edit/add: Vital Signs - 24 hr 05/23/23 14:45 05/23/23 16:52 05/23/23 20:14 Temperature 97.8 F 97.5 F L Pulse Rate [Pulse Oximeter] 57 L 58 L 65 Respiratory Rate 22 22 20 Blood Pressure [Ri ght Arm] 120/56 L Blood Pressure [Ri ght Upper Arm] 136/59 L 115/47 L Pulse Oximetry 92 97 94 Oxygen Delivery Me thod Room Air Room Air Documenting provider has reviewed patient's vital signs: yes Hospitalist - H&P: Result Imaging Left shoulder: Radiologist's impression: INDICATION: Tenderness after fall. COMPARISON: None. TECHNIQUE: Two views of the left shoulder. FINDINGS: Osteopenia. Moderate degenerative changes of the glenohumeral and acromioclavicular joints. Moderately displaced fracture of the surgical neck of the left humerus. Partial visualization of small to moderate loculated left pleural effusion, which was described on CT report 09/25/2006. IMPRESSION: 1. Moderately displaced fracture of the surgical neck of the left humerus. 2. Partial visualization of small to moderate loculated left pleural effusion, which was described on CT report 09/25/2006. These images are not available for direct comparison. Consider dedicated chest radiograph for further evaluation. facial CT: Radiologist's impression: Indication: Fall Technique: Noncontrast axial CT of the facial bones, with coronal and sagittal reformats. Comparison: Same day CT head Findings: Mildly comminuted bilateral nasal bone fractures. No radiopaque foreign body or suspicious soft tissue air. No obvious nasal septal fracture or septal hematoma. Intact inferior nasal spine of the maxilla. Remaining facial bones appear grossly intact. Atraumatic appearance of the orbits and orbital contents. Bilateral lens implants. Aside from small left posterior ethmoid air cell mucous retention cyst, clear sinonasal cavities. Smooth rightward nasal septal deviation, anatomic variant. Shallow rightward projecting nasal septal spur, slightly deforming the right inferior turbinate. Clear mastoid air cells and middle ear cavities. Impression: 1. Mildly comminuted bilateral nasal bone fractures. 2. No evidence of nasal septal fracture or significant septal hematoma. Assessment and Plan Assessment and plan (1) Fracture of humerus: Problem comment: left surgical neck fracture. Ortho consult. Probably conservative management. Status: Acute (2) Inadequate pain control: Problem comment: pain control has been difficult. She appears to have fairly severe nausea and vomiting from opioids including fentanyl morphine and oxycodone. Instead will use ice, Celebrex and acetaminophen. Status: Acute (3) Atrial fibrillation: Problem comment: new diagnosis 05/23/2023. unknown onset of AFib. Asymptomatic and rate controlled. Recommend apixaban for stroke prophylaxis. I am going to delay temporarily due to acute humeral fracture and concern about bleeding . While on Celebrex or other NSAIDs would use PPI to reduce risk of GI bleed. Status: Acute (4) Elevated blood sugar: Problem comment: check hemoglobin A1c Status: Acute (5) Pleural effusion: Problem comment: seen on shoulder x-ray. Obtain PA and lateral chest x-ray. Status: Acute (6) Hypokalemia: Problem comment: likely due to diuretic. replace potassium, increase daily dose, follow. Status: Acute (7) Disability: Problem comment: patient is uncertain whether she can manage alone at home with her fracture. Will have PT, OT, delinquency prevention social worker evaluation and disposition plan Status: Acute (8) Morbid obesity with BMI of 50.0-59.9, adult: Status: Acute (9) Obstructive sleep apnea: Problem comment: CPAP Status: Acute (10) Hypertension: Problem comment: Hold amlodipine due to low blood pressure. Continue metoprolol for rate control and likely needs diuretic chlorthalidone. Status: Acute Plan patient is admitted to the hospital for further evaluation treatment of humerus fracture, AFib, disability and other chronic medical problems. Total time spent today is 95 minutes, 60 minutes in coordination of care discussing with patient and other providers ongoing evaluation management of humerus fracture, disability, AFib
[2023-05-23 20:44] LABS: Chloride* 100 mmol/L (96-114); Potassium* 3.1 mmol/L (3.6-5.1); Sodium* 138 mmol/L (135-149)
[2023-05-23 20:47] LABS: Blood Urea Nitrogen* 19 mg/dL (7-30); Carbon Dioxide* 27 mmol/L (20-32); Creatinine* 0.6 mg/dL (0.5-1.5); Est. Creatinine Clearance* 42.07; Estimated Glomerular Filt Rate 95 ml/min
[2023-05-23 20:48] LABS: Glucose* 166 mg/dL (60-115)
[2023-05-23 20:52] LABS: Anion Gap 11 mEq/L (7-15)
[2023-05-23 21:02] LABS: Troponin I* < 0.01 ng/mL (0.01-0.04)
[2023-05-23 21:03] LABS: Slide Review Reflex No
[2023-05-23] MEDS: GABAPENTIN 300 MG CAPSULE 600 MG PO (21:20)
[2023-05-23] MEDS: SODIUM CHLORIDE 0.9 % (FLUSH) 10 ML SYRINGE 5 ML IVF (21:20)
[2023-05-23] MEDS: MONTELUKAST 10 MG TABLET PO (21:20)
[2023-05-23] MEDS: KETOROLAC 15 MG/ML inj IVP (21:20)
[2023-05-23] MEDS: POTASSIUM BICARB 25 MEQ EFFERVESCENT TAB 50 MEQ PO (21:20)
[2023-05-23] MEDS: POTASSIUM CITRATE 10 MEQ TABLET.ER 20 MEQ PO (21:31)
[2023-05-23 22:52] VITALS: BP 150/78; PULSE 68; RESP 20; TEMP 36.4; O2SAT 95
[2023-05-23 23:00] VITALS: PULSE 62
[2023-05-24] VITALS (8 sets, daily range): BP systolic 126–150; BP diastolic 65–91; PULSE 59–73; RESP 16–20; TEMP 36.4–36.9; O2SAT 90–97
[2023-05-24] MEDS: SODIUM CHLORIDE 0.9 % (FLUSH) 10 ML SYRINGE 5 ML IVF ×3 (04:03→21:01)
[2023-05-24] MEDS: KETOROLAC 15 MG/ML inj IVP (04:03)
[2023-05-24] MEDS: OMEPRAZOLE 20 MG CAPSULE DR PO (06:06)
[2023-05-24 06:35] LABS: Basophils Absolute Auto 0.01 K/uL (0.00-0.30); Basophils Percent Auto 0.1 % (0.0-3.0); Eosinophils Absolute Auto 0.06 K/uL (0.00-0.50); Eosinophils Percent Auto 0.7 % (0.0-7.0); Hematocrit 39.8 % (33.0-51.0); Hemoglobin* 12.6 gm/dL (12.0-16.0); Immature Granulocytes Abs Auto 0.02 K/uL (0.00-0.30); Immature Granulocytes Pct Auto 0.2 %; Lymphocytes Percent Auto 8.7 % (20-44); Mean Corpuscular HGB Conc 32 gm/dL (32-36); Mean Corpuscular Hemoglobin 29 pg (26-34); Mean Corpuscular Volume 90 fL (80-100); Monocytes Percent Auto 7.4 % (0.0-11.0); Neutrophils Percent Auto 82.9 % (42.0-72.0); Platelet Count* 253 K/uL (140-440); RDW Coefficient of Variation % 14.5 % (11.5-15.5); Red Blood Count 4.42 m/uL (4.00-5.20); White Blood Count* 9.05 K/uL (4.50-11.00)
[2023-05-24 06:39] LABS: Slide Review Reflex No
--- NOTE | 2023-05-24 06:54 | PC.NURSE ---
pt to floor at 1845. Pt very nauseated upon arrival, about 300mL emesis & frequent dry heaves. Pt stated that nausea typically accompanies opioid medication admin, but was in ?so much pain? she needed the ?good stuff?. Profile Trimmer received order for Compazine, offered relief. Pain in left arm/should is tolerable with Toradol admin x 2 and ice to left arm. Prior to admin an antiemetic, ekg was performed, pt was found to be in AFib which is new for her. Hospitalist updated. Pt on tele, remains in AFib, occasionally bradycardic with HR in the 50s.
[2023-05-24 07:05] LABS: Chloride* 98 mmol/L (96-114); Sodium* 138 mmol/L (135-149)
[2023-05-24 07:08] LABS: Anion Gap 6 mEq/L (7-15); Blood Urea Nitrogen* 22 mg/dL (7-30); Carbon Dioxide* 34 mmol/L (20-32); Creatinine* 0.7 mg/dL (0.5-1.5); Est. Creatinine Clearance* 42.07; Estimated Glomerular Filt Rate 92 ml/min
[2023-05-24 07:09] LABS: Calcium* 8.5 mg/dL (8.4-10.6); Glucose* 110 mg/dL (60-115)
--- NOTE | 2023-05-24 08:00 | CRLHL7_ITS ---
For Patients: As a result of the Cures Act, medical imaging exams and procedure reports are released immediately into your electronic medical record. You may view this report before your referring provider. If you have questions, please contact your health care provider. Indication: Atrial fibrillation Technique: Chest 2 views Comparison: Chest CT 03/24/2023 Findings/Impression: Cardiovascular and mediastinum: Upper normal heart size with atherosclerotic calcification. Lungs and pleural spaces: Deformity of the left hemithorax which appears chronic with left lateral pleural thickening and prominent pleural calcification. Some increased density within the left chest adjacent, likely some atelectasis. This is not significantly changed from the chicken catcher film from the chest CT of 2 months prior. Right lung clear. Bones and soft tissues: Left humeral surgical neck fracture. Multiple surgical clips within the upper abdomen. Dictated by Lamberto Childers MD @ 05/24/2023 9:12:09 AM (Electronically Signed)
[2023-05-24] MEDS: CELECOXIB 200 MG CAPSULE PO (09:21)
[2023-05-24] MEDS: METOPROLOL SUCCINATE (XL) 25 MG TAB PO (09:21)
[2023-05-24] MEDS: AMLODIPINE 5 MG TABLET PO (09:21)
[2023-05-24] MEDS: CHLORTHALIDONE 25 MG TABLET PO (09:21)
[2023-05-24] MEDS: buPROPion XL 150 MG TABLET 450 MG PO (09:21)
[2023-05-24] MEDS: POTASSIUM CITRATE 10 MEQ TABLET.ER 20 MEQ PO (10:28)
[2023-05-24] MEDS: ACETAMINOPHEN 325 MG TABLET 650 MG PO (10:29)
[2023-05-24] MEDS: LIDOCAINE 5% PATCH 1 PATCH TRANSDERMA (13:21)
--- NOTE | 2023-05-24 14:12 | PC.SOCIAL ---
Discharge planning- Met with pt and pt's family in room to discuss discharge plans. Per therapy, pt does not need continued PT/OT. Pt has family that will stay with her to assist her in the home for a few days. Provided pt with a resource list for home companion care and meals on wheels. No further needs. Informed pt she may reach out to social work if she has any further questions. Social work will follow up as needed.
--- NOTE | 2023-05-24 15:30 | P.IMPN_ITS ---
Progress Note: A&P Assessment and plan (1) Fracture of humerus: Problem details: Left surgical neck fracture. Immobilized Awaiting orthopedic surgery consult and recommendations Pain management including ice, lidocaine patch, scheduled tylenol, celebrex once daily (along with PPI), tramadol (previously tolerated) p.r.n. PT/OT consults. Per therapies, patient able to return to home with assistance of friends/family. Status: Acute (2) Atrial fibrillation: Problem details: New diagnosis 05/23/2023, noted on EKG. unknown date of onset. Asymptomatic and rate controlled. Recommend apixaban for stroke prophylaxis. I am going to delay temporarily due to acute humeral fracture and concern about bleeding . While on Celebrex or other NSAIDs would use PPI to reduce risk of GI bleed. CHADs Vasc score 3 Awaiting final ECHO report Status: Acute (3) Elevated blood sugar: Problem details: A1c 5.0, glucose improving Status: Acute (4) Pleural effusion: Problem details: Seen on shoulder x-ray. Patient reports chronic change of lung, present for several years. 05/24: CXR shows Deformity of the left hemithorax which appears chronic with left lateral pleural thickening and prominent pleural calcification. Some increased density within the left chest adjacent, likely some atelectasis. This is not significantly changed from the thermodynamics professor film from the chest CT of 2 months prior. Right lung clear. Status: Chronic (5) Hypokalemia: Problem details: likely due to diuretic Potassium 3.0 today, will order additional dose and continue current oral potassium supplement Continue to monitor Status: Acute (6) Morbid obesity with BMI of 50.0-59.9, adult: Problem details: Noted Status: Chronic (7) Obstructive sleep apnea: Problem details: CPAP Status: Acute (8) Hypertension: Problem details: Resume home amlodipine. Continue metoprolol for rate control and likely needs diuretic chlorthalidone. Status: Acute Plan VTE PPX: SCDs, plan to start DOAC, likely tomorrow, prior to discharge, chads Vasc score 3 Time Spent With Patient Total time spent: Total time spent caring for the patient today was 45 minutes. This includes time spent for the visit reviewing the chart, time spent during the visit, time spent after the visit and documentation and planning in coordination of care. Subjective Date Seen: 05/24/23 Interval history: Patient reports feeling a little better this morning. Pain currently adequately managed with Tylenol and immobilization. Did not tolerate IV narcotics, resulting in nausea/vomiting. This has since resolved. Denies headache or diz ziness. Denies chest pain shortness a breath. Tolerating orals. Exam Narrative: Exam Narrative: PHYSICAL EXAM General: Pleasant, conversant, NAD HEENT: Normocephalic, atraumatic, sclera white, EOMI, oral mucosa moist Cardiovascular: IRRR, S1S2 Pulmonary: CTA bilaterally without rhonchi, rales, expiratory wheezes. No dyspnea Neurological: Alert, answering questions appropriately, cranial nerves intact, no focal findings Extremities: No gross joint deformity or swelling. LUE immobilized. Neurovascularly intact Skin: Warm, dry. Const: Vital Signs, click to edit/add: Vital Signs - 24 hr 05/23/23 16:52 05/23/23 20:14 05/23/23 20:14 Temperature 97.5 F L Pulse Rate Pulse Rate [Pulse Oximeter] 58 L 65 Respiratory Rate 22 20 20 Blood Pressure [Ri ght Arm] 120/56 L Blood Pressure [Ri ght Upper Arm] 115/47 L Pulse Oximetry 97 94 Oxygen Delivery Me thod Room Air Oxygen Flow Rate 05/23/23 22:52 05/23/23 22:52 05/23/23 22:52 Temperature 97.6 F Pulse Rate Pulse Rate [Pulse Oximeter] 68 Respiratory Rate 20 20 20 Blood Pressure [Ri ght Arm] 150/78 H Blood Pressure [Ri ght Upper Arm] Pulse Oximetry 95 95 Oxygen Delivery Me thod Nasal Cannula Nasal Cannula Oxygen Flow Rate 2 05/23/23 23:00 05/24/23 04:15 05/24/23 07:22 Temperature 98 F Pulse Rate 62 59 L Pulse Rate [Pulse Oximeter] 64 Respiratory Rate 20 Blood Pressure [Ri ght Arm] 138/91 H Blood Pressure [Ri ght Upper Arm] Pulse Oximetry 97 Oxygen Delivery Me thod Nasal Cannula Oxygen Flow Rate 1 05/24/23 08:00 05/24/23 08:00 05/24/23 10:55 Temperature 98.4 F 98.4 F Pulse Rate Pulse Rate [Pulse Oximeter] 70 72 Respiratory Rate 16 16 18 Blood Pressure [Ri ght Arm] 134/75 150/67 H Blood Pressure [Ri ght Upper Arm] Pulse Oximetry 97 97 90 Oxygen Delivery Me thod Room Air Room Air Room Air Oxygen Flow Rate Labs Labs: Laboratory Results - last 24 hr 05/23/23 05/23/23 05/24/23 19:25 19:38 05:39 WBC 14.61 H 9.05 RBC 5.15 4.42 Hgb 14.4 12.6 Hct 45.3 39.8 MCV 88 90 MCH 28 29 MCHC 32 32 RDW Coeff of Priscilla 14.5 14.5 Plt Count 236 253 Neut % (Auto) 89.5 H 82.9 H Lymph % (Auto) 4.9 L 8.7 L [place] % (Auto) 4.9 7.4 Eos % (Auto) 0.1 0.7 Baso % (Auto) 0.1 0.1 Neut # (Auto) 13.10 H 7.50 H Lymph # (Auto) 0.70 L 0.80 L [place] # (Auto) 0.70 0.70 Eos # (Auto) 0.00 0.06 Baso # (Auto) 0.00 0.01 Abs Immat Gran (auto) 0.10 0.02 Imm/Tot Granulo (auto) 0.5 0.2 Sodium 138 138 Potassium 3.1 L 3.0 L Chloride 100 98 Carbon Dioxide 27 34 H Anion Gap 11 6 L BUN 19 22 Creatinine 0.6 0.7 Estimated Creat Clear 42.07 42.07 Estimated GFR 95 92 Glucose 166 H 110 Hemoglobin A1c 5.0 Calcium 9.0 8.5 Magnesium 2.0 Troponin I < 0.01 L TSH 1.090 Lab Acknowledgement New Spec Needed
[2023-05-24] MEDS: TRAMADOL HCL 50 MG TABLET PO ×2 (16:27→22:31)
[2023-05-24] MEDS: ACETAMINOPHEN 500 MG TABLET 1000 MG PO ×2 (17:01→22:31)
[2023-05-24] MEDS: POTASSIUM CHLORIDE 10 MEQ CAPSULE ER 40 MEQ PO (17:54)
--- NOTE | 2023-05-24 19:25 | PC.NURSE ---
Shift Summary: Patient pleasant and cooperative. Up with SBA and cane. Patient pain controlled with PRN medication and scheduled medication, has lidocaine patch over left shoulder. Vitals stable, denies SOB or chest pain. Tolerating regular diet. Some nausea noted this morning, refused medication to manage nausea, resolved on own. Using call light appropriately. Has had x2 incontinence this morning due to urgency.
[2023-05-24] MEDS: LORATADINE 10 MG TABLET PO (20:58)
[2023-05-24] MEDS: GABAPENTIN 300 MG CAPSULE 600 MG PO (20:58)
[2023-05-24] MEDS: MONTELUKAST 10 MG TABLET PO (20:58)
[2023-05-24] MEDS: ROSUVASTATIN CALCIUM 10 MG TABLET PO (20:58)
[2023-05-25 03:00] VITALS: BP 132/82; PULSE 72; RESP 18; TEMP 36.5; O2SAT 92
[2023-05-25] MEDS: ACETAMINOPHEN 500 MG TABLET 1000 MG PO ×2 (04:24→10:51)
--- NOTE | 2023-05-25 05:31 | PC.NURSE ---
Shift note: Pt has been sleeping well tonight. Alert and oriented. Left arm has been in the sling throughout the night. Pain level has been rated at 5. Ice pack applied to the left shoulder. Ambulate with A1 to SBA with cane. Vitally stable.
[2023-05-25] MEDS: TRAMADOL HCL 50 MG TABLET PO (06:54)
[2023-05-25] MEDS: OMEPRAZOLE 20 MG CAPSULE DR PO (06:55)
[2023-05-25 07:00] VITALS: BP 119/55; PULSE 78; RESP 20; TEMP 37.1; O2SAT 92
[2023-05-25 07:00] LABS: Hematocrit 36.5 % (33.0-51.0); Hemoglobin* 11.6 gm/dL (12.0-16.0); Mean Corpuscular HGB Conc 32 gm/dL (32-36); Mean Corpuscular Hemoglobin 29 pg (26-34); Mean Corpuscular Volume 90 fL (80-100); Platelet Count* 223 K/uL (140-440); Red Blood Count 4.04 m/uL (4.00-5.20); White Blood Count* 9.29 K/uL (4.50-11.00)
[2023-05-25 07:23] LABS: Slide Review Reflex No
[2023-05-25 07:24] LABS: Chloride* 99 mmol/L (96-114); Potassium* 3.3 mmol/L (3.6-5.1); Sodium* 137 mmol/L (135-149)
[2023-05-25 07:27] LABS: Anion Gap 9 mEq/L (7-15); Blood Urea Nitrogen* 23 mg/dL (7-30); Calcium* 8.6 mg/dL (8.4-10.6); Carbon Dioxide* 29 mmol/L (20-32); Creatinine* 0.7 mg/dL (0.5-1.5); Est. Creatinine Clearance* 42.07; Estimated Glomerular Filt Rate 92 ml/min; Glucose* 109 mg/dL (60-115)
--- NOTE | 2023-05-25 08:45 | P.ORCN_ITS ---
History of Present Illness HPI Date Seen: 05/25/23 Requesting physician: Tom Valdes Chief complaint: fall Narrative: Mona is a pleasant 73-year-old [id number] female with past medical history significant for obesity, sleep apnea, asthma, hypertension, hyperlipidemia, and depression. She presented to the emergency department 2 days ago after a fall at home in which she injured her left shoulder. In the emergency department she was also found to have new onset AFib. She was subsequently admitted for further evaluation and pain control. Patient states that she is having some construction done at her home and she slipped and fell injuring her left shoulder. She also had her face and sustained a mildly displaced nasal fracture. She was found to have a mildly displaced surgical neck fracture of the proximal humerus, which has been treated with pain management and a shoulder immobilizer. Today, she continues to experience left shoulder pain with any shoulder movement but states that pain is adequately controlled with Tylenol and tramadol. [facility] Medical History (Updated 05/25/23 @ 08:58 by Cristian Yang MD) Disability Hypokalemia ?E87.6 - Hypokalemia (ICD-10) Pleural effusion ?J90 - Pleural effusion, not elsewhere classified (ICD-10) Elevated blood sugar ?R73.9 - Hyperglycemia, unspecified (ICD-10) Atrial fibrillation ?I48.91 - Unspecified atrial fibrillation (ICD-10) Colon cancer ?C18.9 - Malignant neoplasm of colon, unspecified (ICD-10) Osteoarthritis of both knees ?M17.0 - Bilateral primary osteoarthritis of knee (ICD-10) Morbid obesity with BMI of 50.0-59.9, adult ?E66.01 - Morbid (severe) obesity due to excess calories (ICD-10) ?Z68.43 - Body mass index [BMI] 50.0-59.9, adult (ICD-10) Obstructive sleep apnea ?G47.33 - Obstructive sleep apnea (adult) (pediatric) (ICD-10) Hyperlipidemia ?E78.5 - Hyperlipidemia, unspecified (ICD-10) Depression ?F32.A - Depression, unspecified (ICD-10) Hypertension ?I10 - Essential (primary) hypertension (ICD-10) Asthma ?J45.909 - Unspecified asthma, uncomplicated (ICD-10) Surgical History (Updated 05/23/23 @ 21:05 by Tom Valdes MD) History of tonsillectomy and adenoidectomy ?Z90.89 - Acquired absence of other organs (ICD-10) History of colostomy reversal ?Z98.890 - Other specified postprocedural states (ICD-10) History of colonoscopy ?Z98.890 - Other specified postprocedural states (ICD-10) History of colectomy ?Z90.49 - Acquired absence of other specified parts of digestive tract (ICD- 10) History of cholecystectomy ?Z90.49 - Acquired absence of other specified parts of digestive tract (ICD- 10) Family History (Updated 05/23/23 @ 21:07 by Tom Valdes MD) Other Colon cancer Social History (Updated 05/23/23 @ 21:07 by Tom Valdes MD) Narrative: patient lives alone in a town home in [place]. She lives on 1 level. Recent remodeling of her bathroom to have a walk-in shower. She fell today inspecting the remodeling work. She does not smoke. She quit smoking in 1989. She does not drink alcohol. Code status is full. Healthcare power of deputy county attorney is her brother Scottie Ritter of [place] What is your current living situation?: I presently have a place to live Problems where you live: no known problems Problems where you live details: n/a In the past 12 months, utilities in danger of being shut off: no In past 12 months, lack of transportation kept you from medical appts, meetings, work, or getting things needed for daily living: no In the past 12 mos, have been you worried that your food would run out before you had money to buy more?: never true In the past 12 mos, the food you bought just didn't last and you didn't have money to buy more?: never true Highest level of school completed/degree received: Doctoral degree Smoking Status: Former smoker Second hand tobacco smoke exposure: No How often do you have a drink containing alcohol: never AUDIT-C Alcohol total score: 0 Non-prescribed substance use: denies use Caffeine: Yes How often does anyone, including family, friends and others, physically hurt you : never How often does anyone, including family, friends and others, insult or talk down to you: never How often does anyone, including family, friends and others, threaten you with harm: never How often does anyone, including family, friends and others, scream or curse at you: never service: No Meds Home Medications and Allergies Home Medications Medication Instructions Recorded Confirmed Type albuterol sulfate 90 mcg/actuation 2 puff inhalation Q4H PRN 04/05/22 05/24/23 History aerosol inhaler (Ventolin HFA) amlodipine 5 mg tablet 5 mg PO DAILY 04/05/22 05/24/23 History chlorthalidone 25 mg tablet 25 mg PO DAILY 04/05/22 05/24/23 History fluticasone 232 mcg-salmeterol 14 1 inh inhalation BID 04/05/22 05/24/23 History mcg/actuation breath activated powdr gabapentin 300 mg capsule 600 mg PO HS 04/05/22 05/24/23 History metoprolol succinate 25 mg 25 mg PO DAILY 04/05/22 05/24/23 History tablet,extended release 24 hr montelukast 10 mg tablet 10 mg PO HS 04/05/22 05/24/23 History potassium chloride 10 mEq 20 meq PO BIDWM 04/05/22 05/24/23 History tablet,extended release rosuvastatin 10 mg tablet 10 mg PO HS 04/05/22 05/24/23 History bupropion HCl 150 mg 24 hr tablet, 150 mg PO DAILY 05/23/23 05/23/23 History extended release bupropion HCl 300 mg 24 hr tablet, 300 mg PO DAILY 05/24/23 05/24/23 History extended release calcium carbonate 500 mg-vitamin 1 tab PO DAILY 05/24/23 05/24/23 History D3 10 mcg (400 unit) tablet (Calcium 500 + D) cholecalciferol (vitamin D3) 50 50 mcg PO DAILY 05/24/23 05/24/23 History mcg (2,000 unit) capsule loratadine 10 mg tablet (Claritin) 10 mg PO HS 05/24/23 05/24/23 History Allergies Allergy/AdvReac Type Severity Reaction Status Date / Time aspirin Allergy Severe Anaphylaxis Verified 05/23/23 15:02 fentanyl Allergy Nausea Verified 04/05/22 20:59 Ortho Exam Narrative Exam Narrative: Left upper extremity. No obvious deformity. Proximal humerus was tender to palpation. Shoulder range of motion limited by pain. Radial, ulnar, median, and axillary motor and sensory were intact. Fingers warm well perfused with 2+ radial pulse. Const Vital Signs, click to edit/add: Vital Signs - 24 hr 05/24/23 10:55 05/24/23 15:29 05/24/23 15:29 Temperature 98.4 F 98.1 F Pulse Rate Pulse Rate [Pulse Oximeter] 72 73 Respiratory Rate 18 18 18 Blood Pressure [Right Arm] 150/67 H 138/65 Pulse Oximetry 90 90 90 Oxygen Delivery Method Room Air Room Air Room Air Oxygen Flow Rate 05/24/23 15:38 05/24/23 19:00 05/24/23 23:00 Temperature 98.3 F 97.5 F L Pulse Rate 70 Pulse Rate [Pulse Oximeter] 65 70 Respiratory Rate 18 18 Blood Pressure [Right Arm] 142/66 H 126/73 Pulse Oximetry 93 92 Oxygen Delivery Method Room Air Room Air Oxygen Flow Rate 1 05/24/23 23:00 05/24/23 23:00 05/24/23 23:00 Temperature Pulse Rate 61 Pulse Rate [Pulse Oximeter] 70 Respiratory Rate 18 18 Blood Pressure [Right Arm] Pulse Oximetry 92 Oxygen Delivery Method Room Air Oxygen Flow Rate 1 05/25/23 03:00 Temperature 97.7 F Pulse Rate Pulse Rate [Pulse Oximeter] 72 Respiratory Rate 18 Blood Pressure [Right Arm] 132/82 Pulse Oximetry 92 Oxygen Delivery Method Room Air Oxygen Flow Rate 1 Common normals: no apparent distress, oriented x3 and alert Neuro Common normals: oriented x3 Sensorium/orientation: alert Results Labs Labs: Laboratory Results - last 48 hr 05/23/23 05/23/23 05/24/23 19:25 19:38 05:39 WBC 14.61 H 9.05 RBC 5.15 4.42 Hgb 14.4 12.6 Hct 45.3 39.8 MCV 88 90 MCH 28 29 MCHC 32 32 RDW Coeff of Priscilla 14.5 14.5 Plt Count 236 253 Neut % (Auto) 89.5 H 82.9 H Lymph % (Auto) 4.9 L 8.7 L Berks % (Auto) 4.9 7.4 Eos % (Auto) 0.1 0.7 Baso % (Auto) 0.1 0.1 Neut # (Auto) 13.10 H 7.50 H Lymph # (Auto) 0.70 L 0.80 L Berks # (Auto) 0.70 0.70 Eos # (Auto) 0.00 0.06 Baso # (Auto) 0.00 0.01 Abs Immat Gran (auto) 0.10 0.02 Imm/Tot Granulo (auto) 0.5 0.2 Sodium 138 138 Potassium 3.1 L 3.0 L Chloride 100 98 Carbon Dioxide 27 34 H Anion Gap 11 6 L BUN 19 22 Creatinine 0.6 0.7 Estimated Creat Clear 42.07 42.07 Estimated GFR 95 92 Glucose 166 H 110 Hemoglobin A1c 5.0 Calcium 9.0 8.5 Magnesium 2.0 Troponin I < 0.01 L TSH 1.090 Lab Acknowledgement New Spec Needed 05/25/23 06:05 WBC 9.29 RBC 4.04 Hgb 11.6 L Hct 36.5 MCV 90 MCH 29 MCHC 32 RDW Coeff of Priscilla Plt Count 223 Neut % (Auto) Lymph % (Auto) Berks % (Auto) Eos % (Auto) Baso % (Auto) Neut # (Auto) Lymph # (Auto) Berks # (Auto) Eos # (Auto) Baso # (Auto) Abs Immat Gran (auto) Imm/Tot Granulo (auto) Sodium 137 Potassium 3.3 L Chloride 99 Carbon Dioxide 29 Anion Gap 9 BUN 23 Creatinine 0.7 Estimated Creat Clear 42.07 Estimated GFR 92 Glucose 109 Hemoglobin A1c Calcium 8.6 Magnesium Troponin I TSH Lab Acknowledgement Diagnostic results Additional Comments: AP and scapular Y x-rays of left shoulder performed 05/23/2023 were reviewed. These demonstrated him mildly displaced, impacted surgical neck fracture of the left humerus. Assessment and Plan Assessment and plan (1) Fracture of humerus: Problem comment: Left proximal humerus surgical neck fracture. Date of injury: 05/23/2023 Status: Acute Total time spent: Total time spent is greater than 50% in coordination of care (as documented) at patient's floor/unit and/or counseling patient: (2) Atrial fibrillation: Problem comment: New diagnosis 05/23/2023, noted on EKG. unknown date of onset. Asymptomatic and rate controlled. Recommend apixaban for stroke prophylaxis. I am going to delay temporarily due to acute humeral fracture and concern about bleeding . While on Celebrex or other NSAIDs would use PPI to reduce risk of GI bleed. CHADs Vasc score 3 Awaiting final ECHO report Status: Acute Total time spent: Total time spent is greater than 50% in coordination of care (as documented) at patient's floor/unit and/or counseling patient: (3) Elevated blood sugar: Problem comment: A1c 5.0, glucose improving Status: Acute Total time spent: Total time spent is greater than 50% in coordination of care (as documented) at patient's floor/unit and/or counseling patient: (4) Pleural effusion: Problem comment: Seen on shoulder x-ray. Patient reports chronic change of lung, present for several years. 05/24: CXR shows Deformity of the left hemithorax which appears chronic with left lateral pleural thickening and prominent pleural calcification. Some increased density within the left chest adjacent, likely some atelectasis. This is not significantly changed from the millinery worker film from the chest CT of 2 months prior. Right lung clear. Status: Chronic Total time spent: Total time spent is greater than 50% in coordination of care (as documented) at patient's floor/unit and/or counseling patient: (5) Hypokalemia: Problem comment: likely due to diuretic Potassium 3.0 today, will order additional dose and continue current oral potassium supplement Continue to monitor Status: Acute Total time spent: Total time spent is greater than 50% in coordination of care (as documented) at patient's floor/unit and/or counseling patient: (6) Morbid obesity with BMI of 50.0-59.9, adult: Problem comment: Noted Status: Chronic Total time spent: Total time spent is greater than 50% in coordination of care (as documented) at patient's floor/unit and/or counseling patient: (7) Obstructive sleep apnea: Problem comment: CPAP Status: Acute Total time spent: Total time spent is greater than 50% in coordination of care (as documented) at patient's floor/unit and/or counseling patient: (8) Hypertension: Problem comment: Resume home amlodipine. Continue metoprolol for rate control and likely needs diuretic chlorthalidone. Status: Acute Total time spent: Total time spent is greater than 50% in coordination of care (as documented) at patient's floor/unit and/or counseling patient: Plan Mildly displaced, impacted left proximal humerus surgical neck fracture. Recommend non operative treatment consisting of: -immobilization in sling or shoulder immobilizer for 2-3 weeks followed by physical therapy for shoulder range of motion exercises. -come out of sling several times daily for elbow, wrist, and finger range of motion exercises. -ice for pain and swelling -Tylenol and tramadol as needed for pain control. -no weight-bearing, pushing, pulling, or lifting with left shoulder. Follow-up in orthopedic clinic in 1 week.
[2023-05-25] MEDS: POTASSIUM CHLORIDE 10 MEQ CAPSULE ER 40 MEQ PO (09:27)
[2023-05-25] MEDS: AMLODIPINE 5 MG TABLET PO (09:28)
[2023-05-25] MEDS: METOPROLOL SUCCINATE (XL) 25 MG TAB PO (09:28)
[2023-05-25] MEDS: buPROPion XL 150 MG TABLET 450 MG PO (09:28)
[2023-05-25] MEDS: CELECOXIB 200 MG CAPSULE PO (09:29)
[2023-05-25] MEDS: CHLORTHALIDONE 25 MG TABLET PO (09:29)
--- NOTE | 2023-05-25 11:21 | P.DS_ITS ---
DS: Providers Provider Date Seen: 05/25/23 Date of admission: 05/23/23 18:40 Primary care physician: Suellen Chavira DO Admitting Clinician: Tom Valdes MD Consults: 05/23/23 20:23 Consult to Occupational Therapy [CONS] Routine Comment: Reason(s) for OT Consult:: Evaluate and Treat Any Restrictions?:: No Restrictions Consult to Physical Therapy [CONS] Routine Comment: Reason(s) for PT Consult:: Evaluate and Treat Any Restrictions?:: No Restrictions Consult to Physician [CONS] Routine Comment: Consulting Provider: Cristian Yang Has provider been notified: Yes Consult to Windows Systems Architect [CONS] Routine Comment: Reason for Consult:: Discharge Planning Needs Attending Physician on discharge: Shi Ratliff [facility], PA-C [place] [facility] Date of Discharge: 05/25/23 DS: Diagnosis Discharge Diagnosis (1) Fracture of humerus: Status: Acute Problem details: Left proximal humerus surgical neck fracture. Date of injury: 05/23/2023 Per orthopedic surgery: Mildly displaced, impacted left proximal humerus surgical neck fracture. Recommend non operative treatment consisting of: -immobilization in sling or shoulder immobilizer for 2-3 weeks followed by physical therapy for shoulder range of motion exercises. -come out of sling several times daily for elbow, wrist, and finger range of motion exercises. -ice for pain and swelling -Tylenol and tramadol as needed for pain control. -no weight-bearing, pushing, pulling, or lifting with left shoulder. Outpatient follow-up with orthopedic clinic 7-10 days (2) Atrial fibrillation: Status: Acute Problem details: New diagnosis 05/23/2023, noted on EKG. unknown date of onset. Asymptomatic and rate controlled. CHADs Vasc score 3 Echocardiogram shows mildly increased wall thickness, normal global systolic function with EF 55-60%. Global systolic RV function is normal. Moderately increased estimated pulmonary pressure by tricuspid regurgitation velocity in right atrial pressure. No evidence of atrial fibrillation. Patient will continue on home dose of metoprolol for rate control. Started on apixaban 5 mg b.i.d. on day of discharge after discussing risks and benefits. Recommend outpatient Cardiology consult for further workup and management recommendations. (3) Pleural effusion: Status: Chronic Problem details: Noted on shoulder x-ray on admission. Patient reports this as a chronic change of lung, present for several years. 05/24: CXR shows Deformity of the left hemithorax which appears chronic with left lateral pleural thickening and prominent pleural calcification. Some increased density within the left chest adjacent, likely some atelectasis. This is not significantly changed from the facility manager film from the chest CT of 2 months prior. Right lung clear. (4) Hypokalemia: Status: Acute Problem details: 3.3 on day of discharge following increase dose of usual home potassium replacement. Continue on 40 mEq b.i.d. x2 days, recheck BMP with PCP. (5) Obstructive sleep apnea: Status: Acute Problem details: CPAP. Importance of compliance in setting of new AFib finding. (6) Hypertension: Status: Acute Problem details: Continued on amlodipine, metoprolol, chlorthalidone. DS: Summary Hospital Course Hospital Course: [age] year old female past medical history significant for hypokalemia, hypertension, chronic pleural effusion, CLARISSA was admitted to the medical floor following a fall with humeral fracture. Course of care and details as noted above. Orthopedic surgery consulted, recommending non operative management of left letty ral fracture. Outpatient follow-up in the orthopedic clinic in the next 7-10 days. New finding of atrial fibrillation, rate controlled, asymptomatic, noted on EKG. Echocardiogram completed without evidence of atrial fibrillation. Continued on home dose metoprolol, started on apixaban. Recommend outpatient Cardiology consult for further evaluation and management recommendations. Remainder of chronic medical comorbidities were monitored and managed with home medications. Status at Discharge Overall status at discharge: patient is not back to baseline Time Spent with Patient Time attestation: Total time spent providing and/or coordinating discharge services: Time spent: Greater than 30 minutes Exam Narrative: Exam Narrative: PHYSICAL EXAM General: Pleasant, conversant, NAD Cardiovascular: RRR Pulmonary: No dyspnea Neurological: Alert, answering questions appropriately Skin: Warm, dry. Const: Vital Signs, click to edit/add: Vital Signs - 24 hr 05/24/23 15:29 05/24/23 15:29 05/24/23 15:38 Temperature 98.1 F Pulse Rate 70 Pulse Rate [Pulse Oximeter] 73 Respiratory Rate 18 18 Blood Pressure [Ri ght Arm] 138/65 Pulse Oximetry 90 90 Oxygen Delivery Me thod Room Air Room Air Oxygen Flow Rate 05/24/23 19:00 05/24/23 23:00 05/24/23 23:00 Temperature 98.3 F 97.5 F L Pulse Rate 61 Pulse Rate [Pulse Oximeter] 65 70 Respiratory Rate 18 18 Blood Pressure [Ri ght Arm] 142/66 H 126/73 Pulse Oximetry 93 92 Oxygen Delivery Me thod Room Air Room Air Oxygen Flow Rate 1 05/24/23 23:00 05/24/23 23:00 05/25/23 03:00 Temperature 97.7 F Pulse Rate Pulse Rate [Pulse Oximeter] 70 72 Respiratory Rate 18 18 18 Blood Pressure [Ri ght Arm] 132/82 Pulse Oximetry 92 92 Oxygen Delivery Me thod Room Air Room Air Oxygen Flow Rate 1 1 05/25/23 07:00 05/25/23 07:00 05/25/23 07:00 Temperature 98.7 F Pulse Rate 78 Pulse Rate [Pulse Oximeter] 78 Respiratory Rate 20 Blood Pressure [Ri ght Arm] 119/55 L Pulse Oximetry 92 92 Oxygen Delivery Me thod Room Air Room Air Oxygen Flow Rate 05/25/23 07:00 Temperature Pulse Rate Pulse Rate [Pulse Oximeter] 78 Respiratory Rate 20 Blood Pressure [Ri ght Arm] Pulse Oximetry Oxygen Delivery Me thod Oxygen Flow Rate DS: Data Data Completed and Pending Labs on day of discharge: Labs from last 24 hours 05/25/23 06:05 WBC 9.29 RBC 4.04 Hgb 11.6 L Hct 36.5 MCV 90 MCH 29 MCHC 32 Plt Count 223 Sodium 137 Potassium 3.3 L Chloride 99 Carbon Dioxide 29 Anion Gap 9 BUN 23 Creatinine 0.7 Estimated Creat Clear 42.07 Estimated GFR 92 Glucose 109 Calcium 8.6 Discharge Plan Discharge Disposition: Home, Self-Care Date of Admission: 05/23/23 18:40 Attending Provider on Discharge: Shi Ratliff Consulting Providers: Cristian Yang Primary Care Provider: Suellen Chavira Condition: Stable Anticipated Discharge Date/Time: 05/25/23 11:02 Discharge Medications: New tramadol 50 mg Tablet 50 mg PO Q6H MDD 300mg a day PRN (Reason: Pain) Qty: 40 0RF Rx Instructions: Minimize use and discontinue as soon as possible acetaminophen 500 mg Tablet 1,000 mg PO Q6H PRNQty: 100 1RF omeprazole 20 mg Capsule,Delayed Release(Dr/Ec) 20 mg PO DAILY@0700 Qty: 30 0RF apixaban 5 mg tablet 5 mg PO BID Qty: 60 2RF Continued amlodipine 5 mg tablet 5 mg PO DAILY albuterol sulfate [Ventolin HFA] 90 mcg/actuation HFA aerosol inhaler 2 puff INHALATION Q4H PRN potassium chloride 10 mEq tablet extended release 20 meq PO BIDWM chlorthalidone 25 mg tablet 25 mg PO DAILY gabapentin 300 mg capsule 600 mg PO HS montelukast 10 mg tablet 10 mg PO HS metoprolol succinate 25 mg tablet extended release 24 hr 25 mg PO DAILY rosuvastatin 10 mg tablet 10 mg PO HS fluticasone propion-salmeterol 232-14 mcg/actuation aerosol powdr breath activated 1 inh INHALATION BID bupropion HCl 150 mg tablet extended release 24 hr 150 mg PO DAILY Patient Comments: TOTAL DAILY DOSE 450MG bupropion HCl 300 mg tablet extended release 24 hr 300 mg PO DAILY Patient Comments: TOTAL DAILY DOSE 450MG loratadine [Claritin] 10 mg tablet 10 mg PO HS cholecalciferol (vitamin D3) 50 mcg (2,000 unit) capsule 50 mcg PO DAILY calcium carbonate-vitamin D3 [Calcium 500 + D] 500 mg-10 mcg (400 unit) tablet 1 tab PO DAILY Discharge Orders: Discharge Order (Routine); Ordered 05/25/23 Ordered By: Shi Ratliff Consulting provider completed their portion of the discharge: Yes Patient Education: Acetaminophen (By mouth), Omeprazole (By mouth), Tramadol (By mouth), Apixaban (By mouth), A-fib (Atrial Fibrillation) (GEN), Arm Fracture in Adults (DC), Hypokalemia (GEN) Additional Instructions: Wear the sling at all times. Follow-up with orthopedics. Return to emergency department for new or worsened symptoms. Take Tylenol for pain. If that is not working you can use tramadol. Be aware though that the tramadol can cause you become lightheaded and dizzy and does increase your fall risk. You may also use [id number] lidocaine patches. You were found to have atrial fibrillation during your hospital stay. Continue on metoprolol for rate control. You have been started on apixaban twice daily for anticoagulation. We have discussed the risks and benefits of this. You need an outpatient cardiology appointment for further evaluation and management recommendations. Your potassium has been low. Today it is 3.3. Continue to take your potassium supplement at 40 mEq twice daily for the next 2 days. You can then resume your normal home dose. Your PCP should recheck your levels at your follow-up appointment. You have been prescribed omeprazole, a PPI, to take daily while on apixaban though this medication does have a lower GI bleed risk than other anticoagulant. Avoid taking NSAIDs while on this anticoagulant. Activity Level: Other Activity Detail: Mildly displaced, impacted left proximal humerus surgical neck fracture. Recommend non operative treatment consisting of: -immobilization in sling or shoulder immobilizer for 2-3 weeks followed by physical therapy for shoulder range of motion exercises. -come out of sling several times daily for elbow, wrist, and finger range of motion exercises. -ice for pain and swelling -Tylenol and tramadol as needed for pain control. -no weight-bearing, pushing, pulling, or lifting with left shoulder. -Follow-up in orthopedic clinic in 1 week. [phone] Discharge Diet: Regular Follow Up Appointments: [facility] [Provider Group] - 06/09/23 (New atrial fibrillation, incidental finding on hospitalization.) Suellen Chavira DO [Primary Care Provider] - 05/30/23 2:20 pm ([facility] for post hospital follow up, new atrial fibrillation, humerus fracture (outpatient ortho follow up), hypokalemia - recheck BMP. RECOMMEND OUTPATIENT CARDIOLOGY APPT FOR NEW ATRIAL FIBRILLATION DIAGNOSIS) Forms: [employer] Info Instructions
== END 2023-05-25 12:20 | disposition home or self-care (01) ==
LOC: ED 18:31 → MEDSURG 18:40
PROVIDERS: Physician Assistant; Admitting Provider Family Medicine; Emergency Provider Student in an Organized Health Care Education/Training Program; PCP Family Medicine; Visit Provider Family Medicine
DX: S42.212A Unspecified displaced fracture of surgical neck of left humerus, initial encounter for closed fracture (principal); I48.91 Unspecified atrial fibrillation; S02.2XXA Fracture of nasal bones, initial encounter for closed fracture; J90 Pleural effusion, not elsewhere classified; E87.6 Hypokalemia; R73.9 Hyperglycemia, unspecified; M25.512 Pain in left shoulder; M79.602 Pain in left arm; M25.561 Pain in right knee; R60.0 Localized edema; Z74.09 Other reduced mobility; M17.0 Bilateral primary osteoarthritis of knee; I10 Essential (primary) hypertension; E78.5 Hyperlipidemia, unspecified; J45.909 Unspecified asthma, uncomplicated; G47.33 Obstructive sleep apnea (adult) (pediatric); F32.A Depression, unspecified; E66.01 Morbid (severe) obesity due to excess calories; Z68.43 Body mass index [BMI] 50.0-59.9, adult; Z96.1 Presence of intraocular lens; Z87.891 Personal history of nicotine dependence; Z98.41 Cataract extraction status, right eye; Z98.42 Cataract extraction status, left eye; Z90.89 Acquired absence of other organs; Z90.49 Acquired absence of other specified parts of digestive tract; Z98.890 Other specified postprocedural states
CPT/HCPCS: 36415; 70450; 70486; 71046; 72125; 73030; 73564; 80048; 83036; 83735; 84443; 84484; 85025; 85027; 93306; 96374; 96375; 96376; 97116; 97162; 97165; 97530; 97535; 99283; 99285; G0378; A9270; J0780; J1885; J2270; J2405

== ENCOUNTER 2023-06-02 08:09 | Outpatient (CLI) | payer MEDICARE, BC, SELFPAY ==
--- OUTSIDE RECORDS SUMMARY | 2023-06-03 07:10 | XMS_ITS | Continuity of Care Document ---
Author Name Unknown Organization [facility] Address [address] [address] [place] [address] Phone Care Team Providers Care Reimbursement Analyst Name Role Phone Thong Frankel MD Unavailable Unavailable Procedures Procedure Date Ugi Endo; W/remov Fb Advance Directives Directive Yes / No Effective Date File Name No Information Encounters Encounter Description Practice Location Reason(s) For Visit Diagnoses Date Provider Providers Copied on Encounter [facility] [place], [address] [address], [place], [place], [id number], [place] tel:[phone] [facility] No Information 7 Marlys Benito. [address] [facility] [address], [place], [place], [id number] , [place]. tel:[phone] Referring Provider: Blessing Aly MD D, [address], [place], [address]. tel:[phone] Family History Family Member Type Diagnosis Age At Onset No Information Payers Payer name Insurance type Covered democrat ID Authoriza tion(s) [facility] [id number] Social History Type Description Quantity Date Captured Comments Sex Female Smoking Status No Information Chief Complaint And Reason For Visit No Information Reason For Referral Reason For Referral No Information History Of Present Illness Encounter Date Complaint History Of Prese nt Illness No Information Functional Status Date Functional Assessmen t No Information Instructions Date Instruction Additional Infor mation No Information Assessments Type Assessment Date No Information Patient Care Teams Name Effective Dates (start - stop) Status Members No Information
--- OUTSIDE RECORDS SUMMARY | 2023-06-03 07:11 | XMS_ITS | Clinical Summary ---
Author Name Unknown Organization [facility] Address [place], [place] [address] Care Team Providers Care Electrocardiogram Technician Name Role Phone Suellen Chavira DO Primary Care Provider [phone] Allergies Active Allergy Reactions Criticality Noted Date Comments Aspirin Angioedema 04/20/2005 Throat swells. Lips swell- per patient tolerated ibuprofen Fentanyl Nausea And Vomiting 11/08/2006 *had small amount, tolerated well* Lisinopril Hives Medium 11/30/2017 Medications Medication Sig Dispensed Refills Start Date End Date Status Cholecalciferol, Vitamin D3, (VITAMIN D) 400 unit capsule Take 2,000 units by mouth once daily. 0 1 Active loratadine 10 mg cap Take 1 Capsule by mouth at bedtime. 0 2 Active CPAPIndications:CLARISSA (obstructive sleep apnea) CPAP machine for home use at pressure 5-15cm/H2O, nasal mask x1/3month with nasal cushion x2/mo 1 Each 11 3 Active rosuvastatin (CRESTOR) 10 mg tabletIndications:H yperlipidemia, unspecified hyperlipidemia type Take 1 Tablet (10 mg) by mouth at bedtime. 90 Tablet 3 3 Active potassium chloride (K-TAB) 10 mEq extended-release tabletIndications:H TN (hypertension) TAKE TWO TABLETS BY MOUTH TWICE A DAY WITH MEALS 360 Tablet 3 3 Active montelukast (SINGULAIR) 10 mg tabletIndications:S easonal allergies Take 1 Tablet (10 mg) by mouth at bedtime. 90 Tablet 3 3 Active gabapentin (NEURONTIN) 300 mg capsuleIndications: Restless legs TAKE TWO CAPSULES BY MOUTH EVERY DAY AT BEDTIME 180 Capsule 3 3 Active fluticasone propion-salmeterol (AIRDUO RESPICLICK) 232-14 mcg/actuation inhalerIndications: Asthma, unspecified asthma severity, unspecified whether complicated, unspecified whether persistent Inhale 1 Puff by mouth two times daily. 3 Each 3 3 Active chlorthalidone (HYGROTON) 25 mg tabletIndications:H TN (hypertension) Take 1 Tablet (25 mg) by mouth once daily. 90 Tablet 3 3 Active amLODIPine (NORVASC) 5 mg tabletIndications:H TN (hypertension) Take 1 Tablet (5 mg) by mouth once daily. 90 Tablet 3 3 Active albuterol HFA (Ventolin HFA) 90 mcg/actuation inhalerIndications: Chronic bronchitis, unspecified chronic bronchitis type (HC) Inhale 2 Puffs by mouth every 4 hours if needed for Shortness of Breath 1st choice or Wheezing 1st choice. 1 Each 1 3 Active buPROPion (WELLBUTRIN XL) 150 mg Extended-Release tabletIndications:D epression, recurrent (HC) Take 150mg with 300mg to equal 450mg daily 90 Tablet 3 3 Active metoprolol succinate (TOPROL XL) 25 mg Sustained-Release tabletIndications:H TN (hypertension) Take 1 Tablet (25 mg) by mouth once daily. 90 Tablet 3 3 Active buPROPion (WELLBUTRIN XL) 300 mg Extended-Release tabletIndications:D ysthymic disorder Take 300mg with 150mg daily to equal 450mg daily. 90 Tablet 3 3 Active miscellaneous medical supply (Blood Pressure Cuff) miscIndications:HTN (hypertension) As directed. BP cuff for home use. Diagnosis: Hypertension 1 Each 0 3 Active calcium carbonate/vitamin D3 (CALCIUM CHEW ORAL) Take 1 Each by mouth two times daily. 0 Active traMADoL (ULTRAM) 50 mg tablet TAKE ONE TABLET BY MOUTH EVERY SIX HOURS NEEDED FOR PAIN. MAX 6 TABLETS DAILY. MINIMIZE USE AND DISCONTINUE SOON POSSIBLE.* 0 4 Active omeprazole (PRILOSEC) 20 mg Delayed-Release capsule Take 20 mg by mouth once daily before a meal. 0 4 Active Eliquis 5 mg tablet Take 5 mg by mouth two times daily. 0 4 Active amoxicillin-clavula madelin 875-125 mg tablet (AUGMENTIN)Indicati ons:Cat bite, initial encounter Take 1 Tablet by mouth two times daily with meals for 10 days. 20 Tablet 0 4 06/09/19 24 Active polyethylene glycol-electrolyte (GOLYTELY) 236-22.74-6.74 -5.86 gram suspensionIndicatio ns:Encounter for screening colonoscopy Drink 2 liters the day before the procedure and 2 liters 6 hours prior to procedure. 4000 mL 0 3 05/30/19 24 Discontinu ed(*Med complete/R egimen complete/L evel of care change) Active Problems Problem Noted Date Diagnosed Date [...] Encounters Date Type Department Care Team Description 06/01/2023 Orders Only [facility] [address] [place] [address] Suellen Chavira DO scan: (1-Ord) NFLD-EKG-2.13.24 05/30/2023 2:20 PM DINING CAR WAITER/WAITRESS Office Visit [facility] [address] [place] [address] Suellen Chavira DO [facility] F/U 05/30/2023 Travel 05/24/2023 4:00 PM DINING CAR WAITER/WAITRESS Ancillary Procedure [facility] [address] [place] [address] 05/24/2023 Orders Only [facility] Scanner 1 scan: (1-Ord) [facility], CHEST, 05/24/2023 05/23/2023 Orders Only [facility] Scanner 1 scan: (1-Ord) [facility], CT FACIAL BONES WO CON, 05/23/2023 05/23/2023 Orders Only [facility] Scanner 1 scan: (1-Ord) [facility], HEAD/BRAIN WO, 05/23/2023 05/23/2023 Orders Only [facility] Scanner 1 scan: (1-Ord) [facility], XR KNEE RT, 05/23/2023 05/23/2023 Orders Only [facility] Scanner 1 scan: (1-Ord) [facility], XR SHOULDER LT, 05/23/2023 05/23/2023 Orders Only [facility] Scanner 1 scan: (1-Ord) [facility], CERVICAL SPINE WO, 05/23/2023 04/06/2023 3:20 PM DINING CAR WAITER/WAITRESS Ancillary Procedure [facility] [address] [place] [address] 04/06/2023 Travel 03/28/2023 Orders Only [facility] [address] [place] [address] Charlie Masters DO 1 scan: (1-Ord) [facility], CT CHEST WO CON, 03/24/2023 03/16/2023 11:30 AM DINING CAR WAITER/WAITRESS Office Visit [facility] [address] [place] [address] Charlie Masters DO Consult; Follow Up (Testing review/completes) 03/16/2023 Telephone [facility] [address] [place] [phone] Charlie Masters DO Imaging (Needs CT chest) 03/15/2023 Travel from Last 3 Months Immunizations Name Administration Dates Next Due AMB INFLUENZA IIV3 (AGE 65+ YRS) PF (Flu Clinic Only) 01/30/2018 Amb Influenza, Inactivated A IIV4 (Age 65+ Years) Preserv Free 01/27/2020 COVID-19 Vaccine Spikevax (M oderna 50mcg/0.5mL) 12YO+ 3001-1469 Formula PF 02/21/2023 COVID-19 vaccine (Moderna 10 [...] Sign Reading Time Taken Comments Blood Pressure 130/64 05/30/2023 2:19 PM DINING CAR WAITER/WAITRESS Pulse 76 05/30/2023 2:19 PM DINING CAR WAITER/WAITRESS Temperature 36.8 ??C (98.2 ??F) 02/21/2023 10:[address] Respiratory Rate 18 10/05/2017 3:57 PM CDT Oxygen Saturation 95% 05/30/2023 2:19 PM DINING CAR WAITER/WAITRESS Inhaled Oxygen Concentration - - Weight 132 kg (291 lb) 03/16/2023 11:41 AM DINING CAR WAITER/WAITRESS Height 160 cm (5' 3) 03/16/2023 11:41 AM DINING CAR WAITER/WAITRESS Body Mass Index 51.55 03/16/2023 11:41 AM DINING CAR WAITER/WAITRESS Plan of Treatment Upcoming Encounters Date Type Department Care Team (Late st Contact Info) Description 08/08/2023 10:30 AM CDT Office Visit [facility] [address] [place] [phone] Santiago Jenkins MD [address] [place] [address] Health Maintenance Due Date Last Done Comments [...] Additional history exists Tetanus booster 09/28/2030 09/28/2020, 05/0 07/2008, 01/06/1999 Hepatitis C screening for ag e 18-79 Completed 08/02/2013 Pneumococcal series for age 65+ Completed 9, 09/21/2016 Zoster (shingles) series for age 50+ Completed 09/11/2020, 04/24/2020, 03/08/2011 Tdap Completed 09/28/2020, 08/18/2008 DEXA/DXA scan for age 65+ Completed 2021, 09/22/2016, 08/31/2007 COVID-19 vaccine series Completed 02/22/20, 12/02/2022, 01/25/2022, Additional history exists Medical Devices Implanted Type Area Assurance Manager Device Identifier Shelf Expiration Date Model / Serial / Lot Stent Biliary 10-5 Cotton Chhayae - [id number] Implanted:Qty: 1 on 09/27/2006 at [facility] Bile Duct [facility] / / [id number] Procedures Procedure Name Priority Date/Time Associated Diagnosis Comments EKG 12 LEAD Routine 06/01/2023 7:10 AM DINING CAR WAITER/WAITRESS New onset atrial fibrillation (HC) UT READING EKG - NO CHARGE, COMP ONLY Routine 06/01/2023 7:09 AM DINING CAR WAITER/WAITRESS New onset atrial fibrillation (HC) BASIC METABOLIC PANEL Routine 05/30/2023 3:48 PM DINING CAR WAITER/WAITRESS Hypokalemia ECHO TTE COMPLETE WO CONTRAST Routine 05/24/2023 12:00 PM DINING CAR WAITER/WAITRESS New onset a-fib (HC) SCAN-RADIOLOGY REPORT 05/24/2023 12:00 AM DINING CAR WAITER/WAITRESS SCAN-CT INTERPRETATION 4 12:00 AM DINING CAR WAITER/WAITRESS SCAN-CT INTERPRETATION 4 12:00 AM DINING CAR WAITER/WAITRESS SCAN-RADIOLOGY REPORT 05/23/2023 12:00 AM DINING CAR WAITER/WAITRESS SCAN-RADIOLOGY REPORT 05/23/2023 12:00 AM DINING CAR WAITER/WAITRESS SCAN-CT INTERPRETATION 4 12:00 AM DINING CAR WAITER/WAITRESS XR MAMMO BILAT SCREENING Routine 04/06/2023 3:38 PM DINING CAR WAITER/WAITRESS Encounter for screening mammogram for malignant neoplasm of breast CT CHEST WO Routine 03/24/2023 12:00 AM DINING CAR WAITER/WAITRESS POWELL (dyspnea on exertion) Pleural effusion on left from Last 3 Months Results * EKG 12 LEAD (06/01/2023 7:10 AM DINING CAR WAITER/WAITRESS) Suellen Chavira DO EKG ORD * UT READING EKG - NO CHARGE, COMP ONLY (06/01/2023 7:09 AM DINING CAR WAITER/WAITRESS) Suellen Chavira DO PB - PROVIDER READ INGS * (ABNORMAL) BASIC METABOLIC PANEL (05/30/2023 3:48 PM DINING CAR WAITER/WAITRESS) SODIUM 140 136 - 145 mmol/L 05/31/2023 2:57 PM [facility] POTASSIUM 3.6 3.5 - 5.1 mmol/L 05/31/2023 2:57 PM DINING CAR WAITER/WAITRESS [facility] CHLORIDE 98 98 - 107 mmol/L 05/31/2023 2:57 PM [facility] CO2,TOTAL 28 22 - 29 mmol/L 05/31/2023 2:57 PM DINING CAR WAITER/WAITRESS [facility] ANION GAP 14 5 - 18 05/31/2023 2:57 PM [facility] GLUCOSE 110(H) 70 - 99 mg/dL 05/31/2023 2:57 PM DINING CAR WAITER/WAITRESS [facility] CALCIUM 9.2 8.8 - 10.2 mg/dL 05/31/2023 2:57 PM DINING CAR WAITER/WAITRESS [facility] BUN 20 8 - 23 mg/dL 05/31/2023 2:57 PM DINING CAR WAITER/WAITRESS [facility] CREATININE 0.87 0.50 - 0.90 mg/dL 05/31/2023 2:57 PM DINING CAR WAITER/WAITRESS [facility] BUN/CREAT RATIO 23(H) 10 - 20 2:57 PM DINING CAR WAITER/WAITRESS [facility] eGFR 71(L) >90 mL/min/1.7 3m2 05/31/2023 2:57 PM DINING CAR WAITER/WAITRESS [facility] Comment:As of 2021, eG FR is calculated by the CKD-EPI creatinine equation without race adjustment. ??eGFR can be influenced by muscle mass, exercise, and diet. ??The reported eGFR is an estimation only and is only applicable if the renal function is stable. Blood BLOOD SPECIMEN / Unknown Venipuncture / Unknown 05/30/2023 3:48 PM DINING CAR WAITER/WAITRESS 05/30/2023 3:49 PM DINING CAR WAITER/WAITRESS Suellen Chavira DO CHEMISTRY [facility] [address] [place] [id number], * ECHO TTE COMPLETE WO CONTRAST (05/24/2023 12:00 PM DINING CAR WAITER/WAITRESS) AORTIC VALVE MEAN PG 3 mmHg PEAK TR VELOCITY 3.1 m/s LVEDD 4.8 cm EJECTION FRACTION 55 - 60% Anatomical Region Laterality Modality Ultrasound 05/24/2023 11:2 6 AM DINING CAR WAITER/WAITRESS Narrative 05/24/2023 12:35 PM DINING CAR WAITER/WAITRESS ECHOCARDIOGRAM STUART VELAZQUEZ ?Accession#: ?? [id number] : ?1950 73 years Study Date: ?? 05/24/2023 11:26:41 AM Gender: F ? BP: ? 134/75 mmHg Height: 160.00 cm ? BSA: ?2.25 m? ? ? Weight: 130.00 kg ? Tech: ? MCK ?Referring MD: FARZANA VALDES Site: ? [facility] Reading Location: [facility] Patient Location: Inpatient. Procedure: 2D, Color Doppler [...] . This study was interpreted by an [facility] accredited facility. CC: [facility] (med records) [facility], Med/Surg - IP [facility]. ??Final ?? Procedure Note Marcy Juarez, [facility] - 05/24/2023 ECHOCARDIOGRAM STUART VELAZQUEZ : 1950 73 years Study Date: 05/24/2023 11:26:41 AM Gender: F BP: 134/75 mmHg Height: 160.00 cm BSA: 2.25 m? ? ? Weight: 130.00 kg Tech: LEONEL Referring MD: FARZANA VALDES Site: [facility] Reading Location: [facility] Patient Location: Inpatient. Procedure: 2D, Color Doppler [...] . This study was interpreted by an [facility] accredited facility. CC: [facility] (med records) [facility], Med/Surg - IP [facility]. Final Farzana Valdes MD ECHO ORD * SCAN-RADIOLOGY REPORT (05/24/2023 12:00 AM DINING CAR WAITER/WAITRESS) Only the most recent of3 resultswithin the time period is included. Anatomical Region Laterality Modality Other Scanner OTHER * SCAN-CT INTERPRETATION (05/23/2023 12:00 AM DINING CAR WAITER/WAITRESS) Only the most recent of3 resultswithin the time period is included. Anatomical Region Laterality Modality Other Scanner OTHER * XR MAMMO BILAT SCREENING (04/06/2023 3:38 PM DINING CAR WAITER/WAITRESS) Anatomical Region Laterality Modality BREASTS, Breast Left, Breast Right Bilateral Mammography Impressions 04/07/2023 9:15 AM DINING CAR WAITER/WAITRESS ??There is no radiographic evidence for malignancy. ??Recommend annual mammograms. MAMMOGRAM ASSESSMENT: ??ACR 1 Negative PATIENTS: You will also receive a letter with your examination results in an easy to read format. ??If you have questions about your results, please contact your referring provider. Narrative 04/07/2023 9:15 AM DINING CAR WAITER/WAITRESS For Patients: As a result of the Century Cures Act, medical imaging exams and procedure reports are released immediately into your electronic medical record. You may view this report before your referring provider. If you have questions, please contact your health care provider. XR MAMMO BILAT SCREENING [[id number]] CLINICAL HISTORY: ??This is an asymptomatic 73 y.o. patient. INDICATION FOR EXAM: Mammogram Screening. TECHNIQUE: CC & MLO views were obtained. ??This study was evaluated with the assistance of Computer-Aided Detection. COMPARISON FILM: Yes 03/14/22 [facility] 03/08/21 [facility] FINDINGS: ??The breasts have scattered areas of fibroglandular density. There are no dominant masses, suspicious micro calcifications or areas of architectural distortion. Suellen Chavira DO MAMMO * CT CHEST WO (03/24/2023 12:00 AM DINING CAR WAITER/WAITRESS) Anatomical Region Laterality Modality CHEST, THORAX, HEART Computed To mography Charlie Masters DO CT from Last 3 Months Advance Directives Documents on File Type Date Recorded Patient Overhead Worker Expl anation Healthcare Directive 07/02/2012 1:17 PM MERRY HULL POWER OF SPEECH COACH FOR HEALTH CARE Latest Code Status on File Code Status Date Activated Date Inactivated Comments Full Code 09/27/2006 10:32 AM 09/27/2006 3:46 PM Care Teams Electrocardiogram Technician Relationship Specialty Start Date End Date Suellen Chavira DO [address] [place] [address] PCP - General Family Practice 10/16/17
--- OUTSIDE RECORDS SUMMARY | 2023-06-03 07:11 | XMS_ITS | Clinical Summary ---
Author Name Unknown Organization [facility] Address [address] [place], [place] [id number] Phone [email or web address] Care Team Providers Care Grid Operator Name Role Phone Unavailable Primary Care Provider [...]
== END 2023-06-02 08:10 | disposition home or self-care (01) ==
LOC: AMB 06-03 07:08
PROVIDERS: PCP Family Medicine; Visit Provider Family Medicine
DX: R53.1 Weakness (principal)
CPT/HCPCS: A0998

== ENCOUNTER 2023-09-06 13:00 | Outpatient (RCR) | payer MEDICARE, BC, SELFPAY ==
--- NOTE | 2023-06-21 16:06 | PT.OPEX ---
PT [place] Outpatient Eval PT [facility] Outpatient Eval Start: 06/21/23 08:34 Freq: Status: Active Protocol: Document 06/21/23 08:35 AMS (Rec: 06/21/23 16:03 AMS [id number]) E-signed By Marcie Irizarry PT Physical Therapy Outpatient Evaluation Insurance Information Recert Due Date 09/14/23 Insurance Name Medicare B,Blue Cross/Blue Shield Medical Diagnosis S/p fracture of left proximal humerus 05/23/23 Treating Diagnosis Left shoulder pain Left shoulder stiffness Muscle weakness Referring MD Levi Perdomo Subjective Subjective Mona is a pleasant 73- year-old dpnam-onhu-rgkurvrd female with past medical history significant for obesity, sleep apnea, asthma, hypertension, hyperlipidemia, and depression. She presented to the emergency department 2 days ago after a fall at home in which she injured her left shoulder. In the emergency department she was also found to have new onset AFib. She was subsequently admitted for further evaluation and pain control. Patient states that she is having some construction done at her home and she slipped and fell injuring her left shoulder. She also had her face and sustained a mildly displaced nasal fracture. She was found to have a mildly displaced surgical neck fracture of the proximal humerus, which has been treated with pain management and a shoulder immobilizer. Today, she continues to experience left shoulder pain with any shoulder movement but states that pain is adequately controlled with Tylenol and tramadol. - Cristian Quesada, 05/25/23, confirmed by patient Patient is a 73-year-old female who presents to physical therapy 4 weeks s/p left proximal humeral fracture after a fall at home and 2- day hospital stay. Referred by Dr. Nj at [facility] on 06/02. She states her shoulder is getting much better in terms of pain and range of motion. She has been wearing her sling all the time except when doing her elbow, hand, and wrist ROM a few times per day. Her vdrues-bg-goo has been coming over when she showers, as she needs assist with this, but otherwise independent with ADLs. Now independent with dressing as well. Pain characteristics: localized to lateral shoulder, sharp with movement, dull at rest Aggravating factors: driving, showering, anything with two hands, reaching, sleeping, rolling, moving arm Easing factors: use of sling x 4 weeks, Tylenol 2x/day, rest Prior level of function: Independent with use of cane at baseline for mobility Previous treatments: none Current functional limitations : driving, reaching, showering , anything with two hands, sleeping, rolling, moving arm, bed mobility, lifting, pulling/pushing Imaging: X-ray on 06/02 showing Grashey AP in neutral and external rotation shows a 4 part proximal humerus fracture . Extra-articular. The greater tuberosity fragment is mildly displaced superiorly. There is comminution. However, the glenohumeral joint remains concentrically reduced. No signs of AVN. - Dr. Perdomo PMHx: See below/above Social history/current exercise: Patient lives alone in a town home in [place]. She lives on 1 level. Recent remodeling of her bathroom to have a walk-in shower. Enjoys doing artwork/going to [employer] classes 3x/week. Also teaches art. Goals: Get her range of motion back, do daily activities without pain Falls: 2 falls in last year ( both in May), afraid of falling Pain Comments 2/10 at rest 4/10 at worst with certain movement Date of Last Physician Visit 06/02/23 Date of Next Physician Visit 07/07/23 Current Work Status Retired Occupation Retired Preferred Name Pat Precautions Treatment Precautions/Contraindications A-fib diagnosed 2/6 Osteoporosis Hypokalemia Pleural effusion Elevated blood sugar Hyperglycemia Colon cancer Osteoarthritis of both knees Morbid obesity with BMI of 50. 0-59.9, adult Obstructive sleep apnea Hyperlipidemia Depression Hypertension Asthma Per orthopedic surgery: Mildly displaced, impacted left proximal humerus surgical neck fracture. Recommend non operative treatment consisting of: -immobilization in sling or shoulder immobilizer for 2-3 weeks followed by physical therapy for shoulder range of motion exercises. -come out of sling several times daily for elbow, wrist, and finger range of motion exercises. -ice for pain and swelling -Tylenol and tramadol as needed for pain control. -no weight-bearing, pushing, pulling, or lifting with left shoulder. Weight Bearing Status Non-Weight Bearing Objective Other/Pertinent Objective POSTURE: forward head, rounded shoulders/increased thoracic kyphosis SHOULDER AROM (standing) Flexion: R 150 L 55 Abduction: R 150* w/ pain L: 55 w/ pain* Internal Rotation: R T10 L L5/ beltline External Rotation (at side): R 50 L 30 SHOULDER PROM (left) Flexion: 95 deg, pain end range Abduction: 90 deg, pain end range IR: 62 deg ER: 32 deg, pain end range ELBOW ROM WNL NECK/SHOULDER MMT: Deferred SPECIAL TESTS Deferred JOINT MOBILITY/PALPATION: No palpable deformity noted. TTP over greater tuberosity of humerus/lateral deltoid. Functional Test Performed & Score Quick DASH: 72.7/100 = 72.7% Assessment Assessment/Impression Pt is a 73 -year-old, right- hand dominant female who presents 4 weeks s/p left proximal humerus surgical neck fracture after a fall at home on 05/23/23 and high severity and irritability. X-rays showed 4 part proximal humerus extra-articular fracture with mildly displaced greater tuberosity fragment superiorly and comminution. Dr. Perdomo noting good alignment and recommended non-operative management. Pt was to be strictly in sling for 2-3 weeks followed by physical therapy for range of motion progression starting four weeks past fracture. No pulling, pushing, lifting > coffee cup, or weightbearing permitted. On exam, patient also demonstrates notable objective findings including significantly limited active and passive shoulder ROM ( limited by pain), elbow ROM within normal limits, and decreased anti-gravity strength, leading to difficulties with driving, reaching, showering, any task with two hands, sleeping, rolling, moving her arm overhead, bed mobility, lifting, doing [employer] classes, and pulling/pushing. Discussed weaning from the sling gradually based on symptoms; can use arm for light activity at sides, otherwise avoiding sharp pain w/ ADLs/any further progression until she follows up with Dr. Perdomo on 07/06. Patient is appropriate for skilled physical therapy services to address the above deficits. Pt was agreeable with plan of care and goals established. Primary Functional Limitations driving, reaching, showering, anything with two hands, sleeping, rolling, moving arm, bed mobility, lifting, pulling/pushing, clasping bra Plan of Care Rehabilitation Potential Good Physical Therapy Goals In 2 visits: Pt will demonstrate consistent HEP compliance to ensure progress in reaching established goals during course of care. In 12-16 visits: Patient will report pain levels < 2/10 with all activity in order to improve functional mobility at home, work, and during functional leisure activities. Patient will demonstrate shoulder flexion and abduction > 120 degrees in standing for improved ability to perform ADLs. Patient will report ability to wash her back/clasp her bra with right arm for improved ability to perform ADLs. Patient will improve QuickDASH by 30% for meaningful improvement in symptoms. Coordination/Communication With Referral Source Treatment Plan/Direct Interventions Electrical Stimulation,Ice/ Cold/Vasopneumatic,Joint Mobilization,Manual Therapy, Neuromuscular Re-ed,Self-Care/ Home Management,Therapeutic Activities,Therapeutic Exercises Frequency/Duration 1x/week for 12-16 visits Patient Will Be Discharged From Therapy Completion of LTG(s), Independent w/HEP, Independently Progressing Evaluation Billing Untimed Code Treatment Minutes 20 Complexity Low Certification Information Initial Certification Date 06/21/23 Ending Certification Date 09/14/23 Provider Signature Shows Agreement With POC & Medical Necessity Physician Signature & Date Requested Please Sign/Date Here Physician Comment/Change : Physician NPI Number #
== END 2023-09-06 13:37 | disposition home or self-care (01) ==
PROVIDERS: PCP Family Medicine; Visit Provider Orthopaedic Surgery Sports Medicine
DX: S42.309A Unspecified fracture of shaft of humerus, unspecified arm, initial encounter for closed fracture (principal); Z98.890 Other specified postprocedural states; Z51.89 Encounter for other specified aftercare
CPT/HCPCS: 97110; 97140; 97161

== ENCOUNTER 2023-11-01 09:14 | Outpatient (CLI) | payer MEDICARE, BC, SELFPAY ==
--- OUTSIDE RECORDS SUMMARY | 2023-11-04 02:40 | XMS_ITS | Clinical Summary ---
Author Organization [facility] Address [place], [place] [address] Care Team Providers Care Stemhole Borer And Topper Name Role Phone Suellen Chavira DO Primary Care Provider [phone] Allergies Active Allergy Reactions Criticality Noted Date [...] Date Type Department Care Team Description 11/01/[address] [facility] Scanner 1 scan: (1-Ord) [facility], LUMBAR SPINE, 11/01/2023 11/01/2023 Travel 10/30/2023 Telephone [facility] [address] [facility] [place] [address] Suellen Chavira DO Prior Authorization (semaglutide (Wegovy) 0.25 mg/0.5 mL pen) 10/24/2023 8:20 AM CDT Office Visit [facility] [address] [facility] [place] [address] Suellen Chavira DO Medicare ANNUAL (subsequent) Visit (73 year old medicare) 10/24/2023 Travel 10/14/2023 Refill [facility] [address] [facility] [place] [address] Suellen Chavira DO Refill Request (Chlorthalidone, Gabapentin, Metoprolol Succinate) 10/06/2023 Refill [facility] [address] [facility] [place] [address] Suellen Chavira DO Refill Request (Bupropion) 09/22/2023 Refill [facility] [address] [place] [address] Suellen Womack, MUSIC ORCHESTRATOR Refill Request (cpap rx) 09/19/2023 9:00 AM CDT Telemedicine [facility] [address] [place] [address] Suellen Womack NP Sleep Follow-up; Telehealth (no vitals taken/) 09/19/2023 Travel 08/28/2023 Refill [facility] [address] [place] [address] Suellen Chavira DO Refill Request (Eliquis) 08/08/2023 11:00 AM CDT Office Visit [address] [place] [address] 08/08/2023 10:30 AM CDT Office Visit [facility] [address] [place] [id number] Joanne Last MD Consult (New onset of Afib ) 08/08/2023 Travel from Last 3 Months Immunizations Name Administration Dates Next Due AMB INFLUENZA IIV3 (AGE 65+ YRS) PF (Flu Clinic Only) 01/30/2018 Amb Influenza, Inactivated A IIV4 (Age 65+ Years) Preserv Free 01/27/2020 COVID-19 Vaccine Spikevax (M oderna 50mcg/0.5mL) 12YO+ [id number] Formula PF 02/21/2023 COVID-19 vaccine (Moderna 10 [...] Care Team (Late st Contact Info) Description 11/08/2023 1:05 PM CDT Office Visit [facility] [address] [place] [address] Suellen Chavira DO [address] [place] [address] 01/25/2024 10:50 AM CDT Office Visit [facility] [address] [place] [address] Suellen Chavira DO [address] [place] [address] Health Maintenance Due Date Last Done Comments COVID-19 vaccine series ( season) 2023 02/21/2023, 12/02/2022, 01/25/2022, Additional history [...] 09/22/2016, 08/31/2007 Medical Devices Implanted Type Area Food Service Hotel Runner Device Identifier Shelf Expiration Date Model / Serial / Lot Stent Biliary 10-5 Jamie Helton - [id number] Implanted:Qty: 1 on 09/27/2006 at [facility] Common Bile Duct [facility] CHBSO-10-5 # / / [id number] Procedures Procedure Name Priority Date/Time Associated Diagnosis Comments SCAN-RADIOLOGY REPORT 11/01/2023 12:00 AM CDT BASIC METABOLIC PANEL Routine 10/24/2023 9:38 AM CDT HTN (hypertension) LDL CHOLESTEROL,DIRECT Routine 10/24/2023 9:38 AM CDT Hyperlipidemia, unspecified hyperlipidemia type EXTENDED HOLTER Routine 08/25/2023 12:00 AM CDT New onset atrial fibrillation (HC) XR MAMMO BILAT SCREENING Routine 04/06/2023 3:38 PM FARMWORKER POULTRY Encounter for screening mammogram for malignant neoplasm of breast COLONOSCOPY SCREENING Routine 02/27/2023 12:00 AM FARMWORKER POULTRY Screening for colon cancer XR DXA BONE DENSITY 2 SITES AXIAL Routine 10/19/2021 11:22 AM CDT Osteopenia, unspecified location Other specified disorders of bone density and structure, other site ANTI HCV Routine 08/02/2013 1:04 PM CDT Need for hepatitis C screening test from Last 3 Months or Most Recently Relevant to Health Maintenance Results * SCAN-RADIOLOGY REPORT (11/01/2023 12:00 AM CDT) Anatomical Region Laterality Modality Other Scanner OTHER * LDL CHOLESTEROL,DIRECT (10/24/2023 9:38 AM CDT) Pathologist [facility] LDL CHOLESTEROL,DI RECT 59 mg/dL 10/24/2023 7:29 PM CDT [facility] PROVIDER ORDERED STATUS RANDOM 10/24/2023 7:29 PM CDT [facility] Blood BLOOD SPECIMEN / Unknown Venipuncture / Unknown 10/24/2023 9:38 AM CDT 10/24/2023 9:39 AM CDT Narrative [facility] - 10/24/2023 7:29 PM CDT Optimal ?<100 mg/dl Near Optimal ?100-129 mg/dl Borderline High ?? 130-159 mg/dl High ?160-189 mg/dl Very High ? >=190 mg/dl Suellen Chavira DO CHEMISTRY [facility] [address] [place] [address], * (ABNORMAL) BASIC METABOLIC PANEL (10/24/2023 9:38 AM CDT) [facility] SODIUM 143 136 - 145 mmol/L 10/24/2023 7:29 PM CDT [facility] POTASSIUM 3.8 3.5 - 5.1 mmol/L 10/24/2023 7:29 PM CDT [facility] CHLORIDE 103 98 - 107 mmol/L 10/24/2023 7:29 PM CDT [facility] CO2,TOTAL 25 22 - 29 mmol/L 10/24/2023 7:29 PM CDT [facility] ANION GAP 15 5 - 18 10/24/2023 7:29 PM CDT [facility] GLUCOSE 104(H) 70 - 99 mg/dL 10/24/2023 7:29 PM T [facility] CALCIUM 9.3 8.8 - 10.2 mg/dL 10/24/2023 7:29 PM CDT [facility] BUN 20 8 - 23 mg/dL 10/24/2023 7:29 PM CDT [facility] CREATININE 0.77 0.50 - 0.90 mg/dL 10/24/2023 7:29 PM CDT [facility] BUN/CREAT RATIO 26(H) 10 - 20 7:29 PM CDT [facility] eGFR 82(L) >90 mL/min/1.7 3m2 10/24/2023 7:29 PM CDT [facility] Comment:As of 2021, eG FR [...] 9:39 AM CDT Suellen Chavira DO CHEMISTRY [facility] [address] [place] [address], * Zio XT (08/25/2023 12:00 AM CDT) Joanne Last MD CARDIAC SERVICES ORD * XR MAMMO BILAT SCREENING (04/06/2023 3:38 PM FARMWORKER POULTRY) Anatomical Region Laterality Modality BREASTS, Breast Left, Breast Right Bilateral Mammography Impressions 04/07/2023 9:15 AM FARMWORKER POULTRY ??There is no radiographic evidence for malignancy. ??Recommend annual mammograms. MAMMOGRAM ASSESSMENT: ??ACR 1 Negative PATIENTS: You will also receive a letter with your examination results in an easy to read format. ??If you have questions about your results, please contact your referring provider. Narrative 04/07/2023 9:15 AM FARMWORKER POULTRY For Patients: As a result of the Cures Act, medical imaging exams and procedure reports are released immediately into your electronic medical record. You may view this report before your referring provider. If you have questions, please contact your health care provider. XR MAMMO BILAT SCREENING [[id number]] CLINICAL HISTORY: ??This is an asymptomatic 73 y.o. patient. INDICATION FOR EXAM: Mammogram Screening. TECHNIQUE: CC & MLO views were obtained. ??This study was evaluated with the assistance of Computer-Aided Detection. COMPARISON FILM: Yes 03/14/22 [employer] 03/08/21 [employer] FINDINGS: ??The breasts have scattered areas of fibroglandular density. There are no dominant masses, suspicious micro calcifications or areas of architectural distortion. Suellen Chavira DO MAMMO * COLONOSCOPY SCREENING [[id number]] (02/27/2023 12:00 AM FARMWORKER POULTRY) Suellen Chavira DO GI PROCEDURE ORD * [...] to assess therapeutic efficacy. Madison Cristina PA-C [employer] [facility] 10/25/2021 Narrative 10/25/2021 8:12 AM CDT For Patients: Results are automatically released to your [employer] account once available, in compliance with federal regulations. This means that you may see your results before your provider has had a chance to review them. Please allow 2-3 business days for your provider to comment on the results. XR DXA Bone Mineral Density (BMD) EXAM LOCATION: [facility] [address] [facility] [address] PATIENT NAME: Mona Ritter DATE OF : 1950 EXAM DATE: 10/19/2021 REQUESTING PROVIDER: Suellen Chavira, DO GENDER AT : female HEIGHT: 5' 3 (10/07/2021) WEIGHT: ??246 lb (10/07/2021) MENOPAUSAL STATUS: Postmenopausal RACE/ETHNICITY: White RISK FACTORS: Alcohol > 3 drinks/day (prior), Cancer Treatment, Family History of Hip Fracture (parental), Menopause < Age 40, Smoking (prior) and White Race CURRENT MEDICATION FOR BONE LOSS: NONE INDICATION: Follow-up of existing osteopenia COMPARISON DATE(S): 2016 DXA scans are compared to prior studies for a patient only when the two (or more) studies were performed on the same scanner. It is not possible to compare data generated on one scanner to data from another because there are not standards in DXA equipment. This applies even if the two scanners are made by the same envelope stamping machine operator. PROCEDURE: Dual-energy x-ray absorptiometry performed with routine [...] 10-year probability of hip fracture: 6.6%. Suellen Ann Fan DO DEXA * ANTI HCV [[id number]] (08/02/2013 1:04 PM CDT) HEPATITIS C ANTIBODY Non-Reacti ve Non-Reacti ve 08/02/2013 10:06 PM CDT [facility] Blood specimen (specimen) BLOOD SPECIMEN / Unknown Venipuncture / Unknown 08/02/2013 1:04 PM CDT 08/02/2013 1:05 PM CDT Narrative [facility] - 08/02/2013 10:06 PM CDT Antibodies to HCV not detected; does not exclude the possibility of exposure to HCV. Blessing Aly SEND OUTS [facility] [address] [place] [address], from Last 3 Months or Most Recently Relevant to Health Maintenance Advance Directives Documents on File Type Date Recorded Patient Portable Feed Mill Operator Expl anation Healthcare Directive 07/02/2012 1:17 PM [facility] [employer] POWER OF SWITCHBOARD OPERATOR HELPER FOR HEALTH CARE * Full Code (Latest Code Status on File) Date Activated Date Inactivated Comments 09/27/2006 10:32 AM 09/27/2006 3:46 PM Care Teams Stemhole Borer And Topper Relationship Specialty Start Date End Date Suellen Chavira DO [address] [place] [address] PCP - General Family Practice 10/16/17
--- OUTSIDE RECORDS SUMMARY | 2023-11-04 02:40 | XMS_ITS | Continuity of Care Document ---
Author Organization [facility] Address [address] [address] [place] [address] Phone Care Team Providers Care Public Information Relations Manager Name Role Phone Marlys STOVALL, Thong Unavailable Unavailable Procedures Procedure Date Ugi Endo; W/remov Fb Advance Directives Directive Yes / No Effective Date File Name No Information Encounters Encounter Description Practice Location Reason(s) For Visit Diagnoses Date Provider Providers Copied on Encounter [facility] [place], [address] [address], [place], [place], [id number], [place] tel:[phone] [facility] No Information [address] Marlys Benito. [address] [facility] [facility] [address], [place], [place], [id number] , [place]. tel:[phone] Referring Provider: Blessing Aly MD D, [address], [place], [address]. tel:[phone] Family History Family Member Type Diagnosis Age At Onset No Information Payers Payer name Insurance type Covered constitution party ID Authoriza tion(s) [facility] [id number] Social History Type Description Quantity Date Captured [...]
== END 2023-11-01 09:15 | disposition home or self-care (01) ==
LOC: AMB 11-04 02:37
PROVIDERS: PCP Family Medicine; Visit Provider Family Medicine
DX: R10.2 Pelvic and perineal pain (principal); M54.9 Dorsalgia, unspecified
CPT/HCPCS: A0425; A0429

== ENCOUNTER 2023-11-01 09:43 | Emergency (ER) | payer MEDICARE, BC, SELFPAY ==
[2023-11-01 09:48] VITALS: BP 157/78; PULSE 71; RESP 18; TEMP 36.2; O2SAT 96; BMI 51.8
--- OUTSIDE RECORDS SUMMARY | 2023-11-01 10:29 | XMS_ITS | Clinical Summary ---
Author Organization [facility] Address [place], [place] [address] Care Team Providers Care Derrick Boat Operator Name Role Phone Suellen Chavira DO Primary Care Provider [phone] Allergies Active Allergy Reactions Criticality Noted Date Comments Aspirin Angioedema 04/20/2005 Throat swells. Lips swell- per patient tolerated ibuprofen Fentanyl Nausea And Vomiting 11/08/2006 *had small amount, tolerated well* Lisinopril Hives Medium 11/30/2017 Medications Medication Sig Dispensed Refills Start Date End Date Status Cholecalciferol, Vitamin D3, (VITAMIN D) 400 unit capsule Take 2,000 units by mouth once daily. 0 08/03/19 11 Active loratadine 10 mg cap Take 1 Capsule by mouth at bedtime. 0 07/23/19 22 Active miscellaneous medical supply (Blood Pressure Cuff) miscIndications:HT N (hypertension) As directed. BP cuff for home use. Diagnosis: Hypertension 1 Each 02/22/20 23 Active calcium carbonate/vitamin D3 (CALCIUM CHEW ORAL) Take 1 Each by mouth two times daily. Active apixaban (Eliquis) 5 mg tabletIndications: Persistent atrial fibrillation (HC) TAKE ONE TABLET BY MOUTH TWICE DAILY 180 Tablet 3 08/29/19 24 Active CPAPIndications:OS A (obstructive sleep apnea) CPAP (E0601) machine for home use at pressure: 5-16 , Choice of mask (A7030 or A7034) w/full face cushion (A7031) x1/mo, nasal cushion (A7032) x2/mo, or nasal pillows (A7033) x 2/mo; Length of Need: 99 months; Frequency of use: Daily 1 Each 09/19/19 24 Active semaglutide (Wegovy) 0.25 mg/0.5 mL penIndications:HTN (hypertension),Mor bid exogenous obesity (HC),POWELL (dyspnea on exertion),CLARISSA (obstructive sleep apnea) Inject 0.25 mg subcutaneous once weekly. 2 mL 10/24/19 24 Active albuterol HFA (Ventolin HFA) 90 mcg/actuation inhalerIndications :Chronic bronchitis, unspecified chronic bronchitis type (HC) Inhale 2 Puffs by mouth every 4 hours if needed for Shortness of Breath 1st choice or Wheezing 1st choice. 1 Each 10/24/19 24 Active amLODIPine (NORVASC) 5 mg tabletIndications: HTN (hypertension) Take 1 Tablet (5 mg) by mouth once daily. 90 Tablet 10/24/19 24 Active buPROPion (WELLBUTRIN XL) 300 mg Extended-Release tabletIndications: Dysthymic disorder Take 300mg with 150mg daily to equal 450mg daily. 90 Tablet 10/24/19 24 Active buPROPion (WELLBUTRIN XL) 150 mg Extended-Release tabletIndications: Depression, recurrent (HC) take 1 tablet by mouth once daily in combination with 300mg tablet for a total dose of 450mg. 90 Tablet 10/24/19 24 Active chlorthalidone (HYGROTON) 25 mg tabletIndications: HTN (hypertension) Take 1 Tablet (25 mg) by mouth once daily. 90 Tablet 10/24/19 24 Active fluticasone propion-salmeterol (AIRDUO RESPICLICK) 232-14 mcg/actuation inhalerIndications :Asthma, unspecified asthma severity, unspecified whether complicated, unspecified whether persistent Inhale 1 Puff by mouth two times daily. 3 Each 10/24/19 24 Active metoprolol succinate (TOPROL XL) 25 mg Sustained-Release tabletIndications: HTN (hypertension) Take 1 Tablet (25 mg) by mouth once daily. 90 Tablet 10/24/19 24 Active potassium chloride (K-TAB) 10 mEq extended-release tabletIndications: HTN (hypertension) TAKE TWO TABLETS BY MOUTH TWICE A DAY WITH MEALS 360 Tablet 10/24/19 24 Active rosuvastatin (CRESTOR) 10 mg tabletIndications: Hyperlipidemia, unspecified hyperlipidemia type Take 1 Tablet (10 mg) by mouth at bedtime. 90 Tablet 3 10/24/19 24 Active montelukast (SINGULAIR) 10 mg tabletIndications: Seasonal allergies Take 1 Tablet (10 mg) by mouth at bedtime. 90 Tablet 3 10/24/19 24 Active gabapentin (NEURONTIN) 300 mg capsuleIndications :Restless legs TAKE TWO CAPSULE BY MOUTH DAILY AT BEDTIME 180 Capsule 3 10/24/19 24 Active CPAPIndications:OS A (obstructive sleep apnea) CPAP machine for home use at pressure 5-15cm/H2O, nasal mask x1/3month with nasal cushion x2/mo 1 Each 06/07/19 024 Discontinued(Du plicate therapy (E-cancel not sent)) rosuvastatin (CRESTOR) 10 mg tabletIndications: Hyperlipidemia, unspecified hyperlipidemia type Take 1 Tablet (10 mg) by mouth at bedtime. 90 Tablet 3 10/11/19 024 Discontinued(Re order (E-cancel not sent)) potassium chloride (K-TAB) 10 mEq extended-release tabletIndications: HTN (hypertension) TAKE TWO TABLETS BY MOUTH TWICE A DAY WITH MEALS 360 Tablet 10/11/19 024 Discontinued(Re order (E-cancel not sent)) montelukast (SINGULAIR) 10 mg tabletIndications: Seasonal allergies Take 1 Tablet (10 mg) by mouth at bedtime. 90 Tablet 3 10/11/19 024 Discontinued(Re order (E-cancel not sent)) gabapentin (NEURONTIN) 300 mg capsuleIndications :Restless legs TAKE TWO CAPSULES BY MOUTH EVERY DAY AT BEDTIME 180 Capsule 10/11/19 024 Discontinued fluticasone propion-salmeterol (AIRDUO RESPICLICK) 232-14 mcg/actuation inhalerIndications :Asthma, unspecified asthma severity, unspecified whether complicated, unspecified whether persistent Inhale 1 Puff by mouth two times daily. 3 Each 10/11/19 024 Discontinued(Re order (E-cancel not sent)) chlorthalidone (HYGROTON) 25 mg tabletIndications: HTN (hypertension) Take 1 Tablet (25 mg) by mouth once daily. 90 Tablet 3 10/11/19 024 Discontinued amLODIPine (NORVASC) 5 mg tabletIndications: HTN (hypertension) Take 1 Tablet (5 mg) by mouth once daily. 90 Tablet 3 10/11/19 024 Discontinued(Re order (E-cancel not sent)) albuterol HFA (Ventolin HFA) 90 mcg/actuation inhalerIndications :Chronic bronchitis, unspecified chronic bronchitis type (HC) Inhale 2 Puffs by mouth every 4 hours if needed for Shortness of Breath 1st choice or Wheezing 1st choice. 1 Each 1 10/11/19 024 Discontinued(Re order (E-cancel not sent)) buPROPion (WELLBUTRIN XL) 150 mg Extended-Release tabletIndications: Depression, recurrent (HC) Take 150mg with 300mg to equal 450mg daily 90 Tablet 3 10/11/19 024 Discontinued metoprolol succinate (TOPROL XL) 25 mg Sustained-Release tabletIndications: HTN (hypertension) Take 1 Tablet (25 mg) by mouth once daily. 90 Tablet 3 10/11/19 024 Discontinued buPROPion (WELLBUTRIN XL) 300 mg Extended-Release tabletIndications: Dysthymic disorder Take 300mg with 150mg daily to equal 450mg daily. 90 Tablet 3 10/11/19 024 Discontinued(Re order (E-cancel not sent)) buPROPion (WELLBUTRIN XL) 150 mg Extended-Release tabletIndications: Depression, recurrent (HC) take 1 tablet by mouth once daily in combination with 300mg tablet for a total dose of 450mg. 30 Tablet 10/08/19 24 024 Discontinued(Re order (E-cancel not sent)) chlorthalidone (HYGROTON) 25 mg tabletIndications: HTN (hypertension) TAKE ONE TABLET BY MOUTH ONE TIME DAILY 90 Tablet 1 10/16/19 024 Discontinued(Re order (E-cancel not sent)) gabapentin (NEURONTIN) 300 mg capsuleIndications :Restless legs TAKE TWO CAPSULE BY MOUTH DAILY AT BEDTIME 60 Capsule 10/16/19 24 024 Discontinued(Re order (E-cancel not sent)) metoprolol succinate (TOPROL XL) 25 mg Sustained-Release tabletIndications: HTN (hypertension) TAKE ONE TABLET BY MOUTH ONE TIME DAILY 90 Tablet 1 10/16/19 24 024 Discontinued(Re order (E-cancel not sent)) Active Problems Problem Noted Date Diagnosed Date Persistent atrial fibrillation 08/29/2023 Overview: Found in ER 05/2023. Cardiology consult done and Zio shows always in atrial fibrillation with good rate control Chronic bronchitis, unspecified chronic bronchit is type [...] per recommendation of oncology. See most recent CORNELIUS brown note. Colonoscopy 07/2012 normal repeat in 5 years Colonoscopy 10/2017 hyperplastic polyp, repeat in 5 years Unspecified sleep apnea 08/12/2006 08/3 Encounters Date Type Department Care Team Description 11/01/2023 Travel 10/30/2023 Telephone [facility] [address] [place] [address] Suellen Chavira DO Prior Authorization (semaglutide (Wegovy) 0.25 mg/0.5 mL pen) 10/24/2023 8:20 AM CDT Office Visit [facility] [address] [facility] [place] [address] Suellen Chavira DO Medicare ANNUAL (subsequent) Visit (73 year old medicare) 10/24/2023 Travel 10/14/2023 Refill [facility] [address] [place] [address] Suellen Chavira DO Refill Request (Chlorthalidone, Gabapentin, Metoprolol Succinate) 10/06/2023 Refill [facility] [address] [place] [address] Suellen Chavira DO Refill Request (Bupropion) 09/22/2023 Refill [facility] [address] [place] [address] [address] Suellen Womack, AUDRA Refill Request (cpap rx) 09/19/2023 9:00 AM CDT Telemedicine [facility] [address] [place] [address] Suellen Womack, AUDRA Sleep Follow-up; Telehealth (no vitals taken/) 09/19/2023 Travel 08/28/2023 Refill [facility] [address] [place] [address] Suellen Chavira DO Refill Request (Eliquis) 08/08/2023 11:00 AM CDT Office Visit [address] [place] [address] [place] [id number] 08/08/2023 10:30 AM CDT Office Visit [facility] [address] [facility] [place] [address] Joanne Last MD Consult (New onset of Afib ) 08/08/2023 Travel from Last 3 Months Immunizations Name Administration Dates Next Due AMB INFLUENZA IIV3 (AGE 65+ YRS) PF (Flu Clinic Only) 01/30/2018 Amb Influenza, Inactivated A IIV4 (Age 65+ Years) Preserv Free 01/27/2020 COVID-19 Vaccine Spikevax (M oderna 50mcg/0.5mL) 12YO+ [id number] Formula PF 02/21/2023 COVID-19 vaccine (Moderna 10 [...] 12/16/1989 Smokeless Tobacco: Never Tobacco Cessation:Counseling Given: Yes Alcohol Use Standard Drinks/Week Comments Not Currently 0 (1 standard drink = 0.6 oz pure alcohol) quit alcohol 1990, used to drink excessively PHQ-2 Answer Date Recorded PHQ-2 TOTAL SCORE 2 10/24/2023 Social Connections Answer Date Recorded Frequency of Communication with Friends and Fami ly 0 10/24/2023 Financial Resource Strain Answer Date R ecorded Difficulty of Paying Living Expenses 3 10/24/2023 Difficulty of Paying Living Expenses Not on file 10/24/2023 Food Insecurity Answer Date Recorded Worried About Running Out of Food in the Last Ye ar 1 10/24/2023 Transportation Needs Answer Date Record ed Lack of Transportation (Medical) 1 10/24/2023 Housing Stability Answer Date Recorded Unable to Pay for Housing in the Last Year 1 10/24/2023 Sex and Gender Information Value Date Recorded [...] Sign Reading Time Taken Comments Blood Pressure 121/79 10/24/2023 8:34 AM CDT Pulse 76 10/24/2023 8:34 AM CDT Temperature 36.8 ??C (98.2 ??F) 02/21/2023 10:[address] Respiratory Rate 18 10/05/2017 3:57 PM CDT Oxygen Saturation 96% 10/24/2023 8:34 AM CDT Inhaled Oxygen Concentration - - Weight 130.2 kg (287 lb) 10/24/2023 8:34 AM CDT Height 158.8 cm (5' 2.5) 10/24/2023 8:34 AM CDT Body Mass Index 51.66 10/24/2023 8:34 AM CDT Plan of Treatment Upcoming Encounters Date Type Department Care Team (Late st Contact Info) Description 01/25/2024 10:50 AM CDT Office Visit [facility] [address] [place] [address] Suellen Chavira DO [address] [place] [address] Health Maintenance Due Date Last Done Comments COVID-19 vaccine series (2022- season) 2023 02/21/2023, 12/02/2022, 01/25/2022, Additional history exists Influenza for age 65+ 12/17/2023 12/02/2022 , 01/25/2022, 01/30/2021, Additional history exists Mammogram for age 45-75 04/06/2024 04/06/20 23, 03/14/2022, 03/08/2021, Additional history exists BMI (ht and wt on same day) for age 18+ 10/23/2024 10/24/2023, 03/16/2023, 11/16/2022, Additional history exists Depression screening for age 12+ 10/23/2024 10/24/2023, 11/16/2022, 10/10/2022, Additional history exists Medicare Wellness for age 65+ 10/24/2024, 10/10/2022, 10/07/2021, Additional history exists Colonoscopy through age 75 02/28/202802/27, 02/27/2023, 10/16/2017, Additional history exists Lipids for age 45-75 10/23/2028 10/24/2023, 10/10/2022, 09/09/2021, Additional history exists Tetanus booster 09/28/2030 09/28/2020, 05/0 07/2008, 01/06/1999 Hepatitis C screening for ag e 18-79 Completed 08/02/2013 Pneumococcal series for age 65+ Completed 9, 09/21/2016 Zoster (shingles) series for age 50+ Completed 09/11/2020, 04/24/2020, 03/08/2011 Tdap Completed 09/28/2020, 08/18/2008 DEXA/DXA scan for age 65+ Completed 2021, 09/22/2016, 08/31/2007 Medical Devices Implanted Type Area Bond Analyst Device Identifier Shelf Expiration Date Model / Serial / Lot Stent Biliary 10-5 Jamie Helton - [id number] Implanted:Qty: 1 on 09/27/2006 at [facility] Common Bile Duct [facility] # / / [id number] Procedures Procedure Name Priority Date/Time Associated Diagnosis Comments BASIC METABOLIC PANEL Routine 10/24/2023 9:38 AM CDT HTN (hypertension) LDL CHOLESTEROL,DIRECT Routine 10/24/2023 9:38 AM CDT Hyperlipidemia, unspecified hyperlipidemia type EXTENDED HOLTER Routine 08/25/2023 12:00 AM CDT New onset atrial fibrillation (HC) XR MAMMO BILAT SCREENING Routine 04/06/2023 3:38 PM SET PAINTER Encounter for screening mammogram for malignant neoplasm of breast COLONOSCOPY SCREENING Routine 02/27/2023 12:00 AM SET PAINTER Screening for colon cancer XR DXA BONE DENSITY 2 SITES AXIAL Routine 10/19/2021 11:22 AM CDT Osteopenia, unspecified location Other specified disorders of bone density and structure, other site ANTI HCV Routine 08/02/2013 1:04 PM CDT Need for hepatitis C screening test from Last 3 Months or Most Recently Relevant to Health Maintenance Results * LDL CHOLESTEROL,DIRECT (10/24/2023 9:38 AM CDT) LDL CHOLESTEROL,DI RECT 59 mg/dL 10/24/2023 7:29 PM CDT [facility] PROVIDER ORDERED STATUS RANDOM 10/24/2023 7:29 PM CDT [facility] Blood BLOOD SPECIMEN / Unknown Venipuncture / Unknown 10/24/2023 9:38 AM CDT 10/24/2023 9:39 AM CDT Narrative [facility] - 10/24/2023 7:29 PM CDT Optimal ?<100 mg/dl Near Optimal ?100-129 mg/dl Borderline High ?? 130-159 mg/dl High ?160-189 mg/dl Very High ? >=190 mg/dl Suellen Chavira DO CHEMISTRY [facility] [address] [place] [address], * (ABNORMAL) BASIC METABOLIC PANEL (10/24/2023 9:38 AM CDT) SODIUM 143 136 - 145 mmol/L 10/24/2023 7:29 PM CDT [facility] POTASSIUM 3.8 3.5 - 5.1 mmol/L 10/24/2023 7:29 PM CDT [facility] CHLORIDE 103 98 - 107 mmol/L 10/24/2023 7:29 PM T [facility] CO2,TOTAL 25 22 - 29 mmol/L 10/24/2023 7:29 PM CDT [facility] ANION GAP 15 5 - 18 10/24/2023 7:29 PM CDT [facility] GLUCOSE 104(H) 70 - 99 mg/dL 10/24/2023 7:29 PM CDT [facility] CALCIUM 9.3 8.8 - 10.2 mg/dL 10/24/2023 7:29 PM T [facility] BUN 20 8 - 23 mg/dL 10/24/2023 7:29 PM T [facility] CREATININE 0.77 0.50 - 0.90 mg/dL 10/24/2023 7:29 PM T [facility] BUN/CREAT RATIO 26(H) 10 - 20 7:29 PM T [facility] eGFR 82(L) >90 mL/min/1.7 3m2 10/24/2023 7:29 PM CDT [facility] Comment:As of 2021, eG FR is calculated by the CKD-EPI creatinine equation without race adjustment. ??eGFR can be influenced by muscle mass, exercise, and diet. ??The reported eGFR is an estimation only and is only applicable if the renal function is stable. Blood BLOOD SPECIMEN / Unknown Venipuncture / Unknown 10/24/2023 9:38 AM CDT 10/24/2023 9:39 AM CDT Suellen Chavira DO CHEMISTRY [facility] [address] [place] [address], * Zio XT (08/25/2023 12:00 AM CDT) Joanne Last MD CARDIAC SERVICES ORD * XR MAMMO BILAT SCREENING (04/06/2023 3:38 PM SET PAINTER) Anatomical Region Laterality Modality BREASTS, Breast Left, Breast Right Bilateral Mammography Impressions 04/07/2023 9:15 AM SET PAINTER ??There is no radiographic evidence for malignancy. ??Recommend annual mammograms. MAMMOGRAM ASSESSMENT: ??ACR 1 Negative PATIENTS: You will also receive a letter with your examination results in an easy to read format. ??If you have questions about your results, please contact your referring provider. Narrative 04/07/2023 9:15 AM SET PAINTER For Patients: As a result of the Cures Act, medical imaging exams and procedure reports are released immediately into your electronic medical record. You may view this report before your referring provider. If you have questions, please contact your health care provider. XR MAMMO BILAT SCREENING [[id number]] CLINICAL HISTORY: ??This is an asymptomatic 73 y.o. patient. INDICATION FOR EXAM: Mammogram Screening. TECHNIQUE: CC & MLO views were obtained. ??This study was evaluated with the assistance of Computer-Aided Detection. COMPARISON FILM: [facility] FINDINGS: ??The breasts have scattered areas of fibroglandular density. There are no dominant masses, suspicious micro calcifications or areas of architectural distortion. Suellen Chavira DO MAMMO * COLONOSCOPY SCREENING [[id number]] (02/27/2023 12:00 AM SET PAINTER) Suellen Chavira DO GI PROCEDURE ORD * (ABNORMAL) XR DXA BONE DENSITY 2 SITES AXIAL (10/19/2021 11:22 AM CDT) Anatomical Region Laterality Modality Spine, HIPS, HIPL, HIPR Other Impressions 10/25/2021 8:12 AM CDT Osteopenia. RECOMMENDATIONS: The National Osteoporosis Foundation recommends pharmacologic treatment for patients with T-scores of -2.5 or less, patients with prior history of fragility fractures, or patients with 10-year probability of greater than 3% at hips or greater than 20% of suffering major osteoporotic fractures. Recommend continued optimization of calcium and vitamin D intake through dietary means and/or supplementation and regular exercise. Consider pharmacologic therapy for osteopenia with increased fracture risk. Follow-up bone density reading in 2 years if therapy initiated to assess therapeutic efficacy. Madison Cristina PA-C [facility] 10/25/2021 Narrative 10/25/2021 8:12 AM CDT For Patients: Results are automatically released to your [employer]) account once available, in compliance with federal regulations. This means that you may see your results before your provider has had a chance to review them. Please allow 2-3 business days for your provider to comment on the results. XR DXA Bone Mineral Density (BMD) EXAM LOCATION: [address] [address] PATIENT NAME: Mona Ritter DATE OF : 1950 EXAM DATE: 10/19/2021 REQUESTING PROVIDER: Suellen Chavira, GENDER AT : female HEIGHT: 5' 3 (10/07/2021) WEIGHT: ??246 lb (10/07/2021) MENOPAUSAL STATUS: Postmenopausal RACE/ETHNICITY: White RISK FACTORS: Alcohol > 3 drinks/day (prior), Cancer Treatment, Family History of Hip Fracture (parental), Menopause < Age 40, Smoking (prior) and White Race CURRENT MEDICATION FOR BONE LOSS: NONE INDICATION: Follow-up of existing osteopenia COMPARISON DATE(S): 2017 DXA scans are compared to prior studies for a patient only when the two (or more) studies were performed on the same scanner. It is not possible to compare data generated on one scanner to data from another because there are not standards in DXA equipment. This applies even if the two scanners are made by the same ambulance assistant. PROCEDURE: Dual-energy x-ray absorptiometry performed with routine technique. Reporting is completed in the form of a T-score. The T-score represents the standard deviation from peak bone mass based on young healthy adult. A Z-score is used for diagnosis in premenopausal women, and for men under the age of 50. FINDINGS: RESULT LUMBAR SPINE L1 - L2 ??BMD: 0.949 g/cm2 T-Score: - 1.9 Z-Score: - 1.4 Change from prior in 2017: ??Increase 7.8%. RESULTS FEMUR Left femoral neck BMD: 0.702 g/cm2 T-Score: - 2.4 Z-Score: - 1.5 Change from prior in 2017: ??Decrease 0.3%. Right femoral neck BMD: 0.736 g/cm2 T-Score: - 2.0 Z-Score: - 1.0 Change from prior in 2017: ??Increase 3.4%. Left hip BMD: 0.823 g/cm2 T-Score: - 0.8 Z-Score: - 2.3 Change from prior in 2017: ??Decrease 2.3%. Right hip BMD: 0.841 g/cm2 T-Score: - 1.3 Z-Score: - 0.7 Change from prior in 2017: ??Decrease 0.6%. WHO criteria: Normal: T-score at or above -1 SD Osteopenia: T-score between -1.1 and -2.4 SD Osteoporosis: T-score at or below -2.5 SD FRAX RISK CALCULATION (USED FOR OSTEOPENIA ONLY): 10-year probability of major osteoporotic fracture: 20.1%. 10-year probability of hip fracture: 6.6%. Suellen Chavira DO DEXA * ANTI HCV [[id number]] (08/02/2013 1:04 PM CDT) HEPATITIS C ANTIBODY Non-Reacti ve Non-Reacti ve 08/02/2013 10:06 PM CDT [facility] Blood specimen (specimen) BLOOD SPECIMEN / Unknown Venipuncture / Unknown 08/02/2013 1:04 PM CDT 08/02/2013 1:05 PM CDT Narrative [facility] - 08/02/2013 10:06 PM CDT Antibodies to HCV not detected; does not exclude the possibility of exposure to HCV. [facility]ing [facility] [address] [place] [address], from Last 3 Months or Most Recently Relevant to Health Maintenance Advance Directives Documents on File Type Date Recorded Patient Community Action Worker Expl anation Healthcare Directive 07/02/2012 1:17 PM [employer] POWER OF [employer] POOL SUPERVISOR FOR HEALTH CARE * Full Code (Latest Code Status on File) Date Activated Date Inactivated Comments 09/27/2006 10:32 AM 09/27/2006 3:46 PM Care Teams Derrick Boat Operator Relationship Specialty Start Date End Date Suellen Chavira DO [address] [place] [address] PCP - General Family Practice 10/16/17
--- OUTSIDE RECORDS SUMMARY | 2023-11-01 10:29 | XMS_ITS | Clinical Summary ---
Author Organization [facility] Address [address] [place] [address] Phone [email or web address] Care Team Providers Care Military Source Operations Officer Name Role Phone Unavailable Primary Care Provider [...] Health Maintenance Due Date Last Done Comments Tetanus (Tdap or Td) Immunization 1962 Breast Cancer Screening 1981 Colorectal Cancer Screening 1981 Osteoporosis screening DEXA 2001 Zoster Immunization (1 of 2) 2001 RSV Immunization >= 60 yrs o ld (1 - 1-dose 60+ series) 2011 Pneumococcal: 65+ Years (1 o f 1 - PCV) 2016 Covid-19 Immunization (1 - 2 023-24 season) 2022 Influenza Immunization (#1) 2023 HIB Immunization Aged Out No longer e [...]
--- NOTE | 2023-11-01 10:30 | CRLHL7_ITS ---
For Patients: As a result of the Cures Act, medical imaging exams and procedure reports are released immediately into your electronic medical record. You may view this report before your referring provider. If you have questions, please contact your health care provider. INDICATION: Low back pain TECHNIQUE: Lumbar spine 2 view COMPARISON: None FINDINGS: Bones: No evidence of fracture. Joints: Mild leftward curvature of the lumbar spine. Disc space narrowing at L4-5 and L5-S1 with mild facet arthropathy at L5-S1 anterior osteophytes at the L1-2 and L2-3 level. Soft tissues: Surgical clips within the upper abdomen. Atherosclerosis. IMPRESSION: No evidence of fracture. Diffuse degenerative disc disease, greatest at the L4-5 and L5-S1 levels. Dictated by Lamberto Childers MD @ 11/01/2023 11:49:50 AM (Electronically Signed)
--- NOTE | 2023-11-01 10:30 | CRLHL7_ITS ---
For Patients: As a result of the Century Cures Act, medical imaging exams and procedure reports are released immediately into your electronic medical record. You may view this report before your referring provider. If you have questions, please contact your health care provider. Indication: Low back pain Technique: Pelvis 1 view Comparison: None Findings: Bones: Alignment is normal. No fractures or bone lesions. Joint spaces: No dislocation. Degenerative disc disease lumbar spine. Soft tissues: Unremarkable. Impression: Degenerative disc disease lumbar spine, otherwise unremarkable AP pelvis. Dictated by Lamberto Childers MD @ 11/01/2023 11:48:23 AM (Electronically Signed)
--- NOTE | 2023-11-01 10:34 | ED.GENADULT ---
HPI - General Adult General Chief complaint: Groin Pain Stated complaint: Pelvic pain Time Seen by Provider: 11/01/23 10:12 History of Present Illness HPI narrative: Patient is a 73 white female that 2 weeks her left groin area in the end of September, was seemed to getting better and then heard again, initially if she is just getting into bed when this happened. Her BMI is significantly elevated. She has had some low back trouble in the past Dr. Raymond taken an x-ray of her back that showed some degenerative disc disease by her report. He was thinking or some nerve root impingement as well. She had been doing pretty well with that. But now as she lays down her back hurts on the left side radiates around her left groin to her knee but not below her knee. No bowel or bladder incontinence no fevers chills or perineal numbness. Patient's medical history is extensive and was reviewed. Related Data Home Medications ?Medication ?Instructions ?Recorded ?Confirmed albuterol sulfate 90 mcg/actuation 2 puff inhalation Q4H PRN 04/05/22 11/01/23 aerosol inhaler (Ventolin HFA) amlodipine 5 mg tablet 5 mg PO DAILY 04/05/22 11/01/23 chlorthalidone 25 mg tablet 25 mg PO DAILY 04/05/22 11/01/23 fluticasone 232 mcg-salmeterol 14 1 inh inhalation BID 04/05/22 11/01/23 mcg/actuation breath activated powdr gabapentin 300 mg capsule 600 mg PO HS 04/05/22 11/01/23 metoprolol succinate 25 mg 25 mg PO DAILY 04/05/22 11/01/23 tablet,extended release 24 hr montelukast 10 mg tablet 10 mg PO HS 04/05/22 11/01/23 potassium chloride 10 mEq 20 meq PO BIDWM 04/05/22 11/01/23 tablet,extended release rosuvastatin 10 mg tablet 10 mg PO HS 04/05/22 11/01/23 bupropion HCl 150 mg 24 hr tablet, 150 mg PO DAILY 05/23/23 11/01/23 extended release bupropion HCl 300 mg 24 hr tablet, 300 mg PO DAILY 05/24/23 11/01/23 extended release calcium carbonate 500 mg-vitamin 1 tab PO DAILY 05/24/23 11/01/23 D3 10 mcg (400 unit) tablet (Calcium 500 + D) cholecalciferol (vitamin D3) 50 50 mcg PO DAILY 05/24/23 11/01/23 mcg (2,000 unit) capsule loratadine 10 mg tablet (Claritin) 10 mg PO HS 05/24/23 11/01/23 omeprazole 20 mg capsule,delayed 20 mg PO DAILY 11/01/23 11/01/23 release Previous Rx's ?Medication ?Instructions ?Recorded acetaminophen 500 mg tablet 1,000 mg (2 x 500 mg) PO Q6H PRN 05/25/23 #100 tabs apixaban 5 mg tablet 5 mg PO BID #60 tabs 05/25/23 prednisone 20 mg tablet 20 mg PO BID #10 tabs 11/01/23 tramadol 50 mg tablet 50 mg PO Q8H PRN pain #14 tabs 11/01/23 Allergies Allergy/AdvReac Type Severity Reaction Status Date / Time aspirin Allergy Severe Anaphylaxis Verified 08/25/23 09:36 fentanyl Allergy Nausea Verified 08/25/23 09:36 lisinopril Allergy Hives Verified 08/25/23 09:36 Review of Systems Status of ROS: Reports: 6 or more systems reviewed and unremarkable except as noted in History and below [facility] Medical History Morbid obesity with BMI of 50.0-59.9, adult ?E66.01 - Morbid (severe) obesity due to excess calories (ICD-10) ?Z68.43 - Body mass index [BMI] 50.0-59.9, adult (ICD-10) Hypokalemia ?E87.6 - Hypokalemia (ICD-10) Pleural effusion ?J90 - Pleural effusion, not elsewhere classified (ICD-10) Elevated blood sugar ?R73.9 - Hyperglycemia, unspecified (ICD-10) Atrial fibrillation ?I48.91 - Unspecified atrial fibrillation (ICD-10) Colon cancer ?C18.9 - Malignant neoplasm of colon, unspecified (ICD-10) Osteoarthritis of both knees ?M17.0 - Bilateral primary osteoarthritis of knee (ICD-10) Obstructive sleep apnea ?G47.33 - Obstructive sleep apnea (adult) (pediatric) (ICD-10) Hyperlipidemia ?E78.5 - Hyperlipidemia, unspecified (ICD-10) Depression ?F32.A - Depression, unspecified (ICD-10) Hypertension ?I10 - Essential (primary) hypertension (ICD-10) Asthma ?J45.909 - Unspecified asthma, uncomplicated (ICD-10) Surgical History History of phacoemulsification of cataract of both eyes with intraocular lens implantation ?Z98.41 - Cataract extraction status, right eye (ICD-10) ?Z98.42 - Cataract extraction status, left eye (ICD-10) ?Z96.1 - Presence of intraocular lens (ICD-10) History of tonsillectomy and adenoidectomy ?Z90.89 - Acquired absence of other organs (ICD-10) History of colostomy reversal ?Z98.890 - Other specified postprocedural states (ICD-10) History of colonoscopy ?Z98.890 - Other specified postprocedural states (ICD-10) History of colectomy ?Z90.49 - Acquired absence of other specified parts of digestive tract (ICD-10) History of cholecystectomy ?Z90.49 - Acquired absence of other specified parts of digestive tract (ICD-10) Family History Other Colon cancer Social History Narrative: patient lives alone in a town home in [place]. She lives on 1 level. Recent remodeling of her bathroom to have a walk-in shower. She fell today inspecting the remodeling work. She does not smoke. She quit smoking in 1989. She does not drink alcohol. Code status is full. Healthcare power of instructional developer is her brother Scottie Ritter of [place] What is your current living situation?: I presently have a place to live Problems where you live: no known problems Problems where you live details: n/a In the past 12 months, utilities in danger of being shut off: no In past 12 months, lack of transportation kept you from medical appts, meetings, work, or getting things needed for daily living: no In the past 12 mos, have been you worried that your food would run out before you had money to buy more?: never true In the past 12 mos, the food you bought just didn't last and you didn't have money to buy more?: never true Highest level of school completed/degree received: Doctoral degree Smoking Status: Former smoker What tobacco products do you use: cigarettes Smoking quit date/years: >15 years ago Do you use any of these nicotine containing products: None Second hand tobacco smoke exposure: No How often do you have a drink containing alcohol: never AUDIT-C Alcohol total score: 0 Non-prescribed substance use: denies use Caffeine: Yes How often does anyone, including family, friends and others, physically hurt you: never How often does anyone, including family, friends and others, insult or talk down to you: never How often does anyone, including family, friends and others, threaten you with harm: never How often does anyone, including family, friends and others, scream or curse at you: never service: No Exam Narrative: Exam Narrative: Objective: Patient is alert or x3 no distress, is able to ambulate with a walker Her left groin shows no marked tender Adams, she has no back pain to palpation, she is able to roll over but with movement she does have some mild left low back pain. She has a positive straight leg raise with back pain and some posterior thigh pain at about 60?. On the left. Normal strength sensation lower extremities bilaterally. No redness warmth erythema the lower extremities. Const: Vital Signs, click to edit/add: Vital Signs - 24 hr 11/01/23 09:48 11/01/23 12:07 Temperature 97.2 F L 97.2 F L Pulse Rate [Pulse Oximeter] 71 71 Respiratory Rate 18 18 Blood Pressure [Le ft Upper Arm] 157/78 H 157/78 H Pulse Oximetry 96 Oxygen Delivery Me thod Room Air Course Vital Signs Vital signs: Initial Vital Signs Temperature 97.2 F L 11/01/23 09:48 Temperature Source Temporal Artery Scan 11/01/23 09:48 Pulse Rate 71 11/01/23 09:48 Respiratory Rate 18 11/01/23 09:48 Blood Pressure 157/78 H 11/01/23 09:48 Blood Pressure Mean 104 11/01/23 09:48 Blood Pressure Position Supine 11/01/23 09:48 Pulse Oximetry 96 11/01/23 09:48 Oxygen Delivery Method Room Air 11/01/23 09:48 Vital Signs Temperature 97.2 F L 07/17/24 09:48 Pulse Rate 71 11/01/23 09:48 Respiratory Rate 18 11/01/23 09:48 Blood Pressure 157/78 H 11/01/23 09:48 Pulse Oximetry 96 11/01/23 09:48 Oxygen Delivery Method Room Air 11/01/23 09:48 Temperature 97.2 F L 11/01/23 12:07 Pulse Rate 71 11/01/23 12:07 Respiratory Rate 18 11/01/23 12:07 Blood Pressure 157/78 H 11/01/23 12:07 Pulse Oximetry 96 11/01/23 09:48 Oxygen Delivery Method Room Air 11/01/23 09:48 Medications Administered Medications: Discontinued Medications Generic Name Dose Route Start Last Admin Trade Name Alvin PRN Reason Stop Dose Admin Prednisone 50 mg 11/01/23 10:29 11/01/23 10:35 Prednisone 10 Mg Tablet PO 11/01/23 10:30 50 mg ONCE ONE Administration Tramadol HCl 100 mg 11/01/23 10:30 11/01/23 10:35 Tramadol Hcl 50 Mg Tablet PO 11/01/23 10:31 100 mg ONCE ONE Administration Medical Decision Making [facility] Narrative Medical decision making narrative: [age] white female obese patient with left groin and low back pain some left thigh pain consistent with mild radiculitis. I think at this point we can take an x-ray of her pelvis and low back. If these are showing no fracture or malalignment I think we can use prednisone and tramadol to help get her through. She has some stomach upset from fentanyl but I think if she has low-dose tramadol that might help her pain might help her be more functional, cautioned about sedative effect. Will give her prednisone 20 mg b.i.d. for 5 days and start 50 mg in the ER now. Will have her follow up with primary care doctor Cher within the next few days. May need some PT or other assessment. Return to ED sooner as needed. Addendum 11:38 a.m. the patient x-rays by my read of her low back shows significant degenerative disc disease no obvious fracture, her pelvic x-ray looks unremarkable she has got good joint space preservation of her hips, I think this is more related to her back and perhaps mild radiculitis on the left hip and thigh, will try the prednisone and the tramadol. She can follow up with primary care in the next few days consider physical therapy if not improving. Further imaging should she not improve after PT P. She is able to ambulate Discharge Plan Discharge Clinical Impression: Low back pain, Left groin pain Patient Disposition: Home w/ Parent or Adult Condition: Stable Additional Instructions: Light activity, ice to the back, prednisone and tramadol as prescribed, follow-up with primary care in the next 2 3 days, consider physical therapy not improving or other problems. Activity Level: Light activity Discharge Diet: Low Fat/Low Cholesterol Prescriptions: New prednisone 20 mg tablet 20 mg PO BID Qty: 10 0RF tramadol 50 mg tablet 50 mg PO Q8H PRN (Reason: pain) Qty: 14 0RF No Action amlodipine 5 mg tablet 5 mg PO DAILY albuterol sulfate [Ventolin HFA] 90 mcg/actuation HFA aerosol inhaler 2 puff INHALATION Q4H PRN potassium chloride 10 mEq tablet extended release 20 meq PO BIDWM chlorthalidone 25 mg tablet 25 mg PO DAILY gabapentin 300 mg capsule 600 mg PO HS montelukast 10 mg tablet 10 mg PO HS metoprolol succinate 25 mg tablet extended release 24 hr 25 mg PO DAILY rosuvastatin 10 mg tablet 10 mg PO HS fluticasone propion-salmeterol 232-14 mcg/actuation aerosol powdr breath activated 1 inh INHALATION BID bupropion HCl 150 mg tablet extended release 24 hr 150 mg PO DAILY Patient Comments: TOTAL DAILY DOSE 450MG bupropion HCl 300 mg tablet extended release 24 hr 300 mg PO DAILY Patient Comments: TOTAL DAILY DOSE 450MG loratadine [Claritin] 10 mg tablet 10 mg PO HS cholecalciferol (vitamin D3) 50 mcg (2,000 unit) capsule 50 mcg PO DAILY calcium carbonate-vitamin D3 [Calcium 500 + D] 500 mg-10 mcg (400 unit) tablet 1 tab PO DAILY acetaminophen 500 mg Tablet 1,000 mg PO Q6H PRNQty: 100 1RF apixaban 5 mg tablet 5 mg PO BID Qty: 60 2RF omeprazole 20 mg capsule,delayed release(DR/EC) 20 mg PO DAILY Follow Up/Referrals: Suellen Chavira DO [Primary Care Provider] - Stand Alone Forms: [facility] Info Instructions
[2023-11-01] MEDS: predniSONE 10 MG TABLET 50 MG PO (10:35)
[2023-11-01] MEDS: TRAMADOL HCL 50 MG TABLET 100 MG PO (10:35)
[2023-11-01 12:07] VITALS: BP 157/78; PULSE 71; RESP 18; TEMP 36.2
== END 2023-11-01 12:30 | disposition home or self-care (01) ==
PROVIDERS: Emergency Provider Family Medicine; PCP Family Medicine
DX: R10.2 Pelvic and perineal pain (principal); M54.50 Low back pain, unspecified
CPT/HCPCS: 72100; 72170; 99283; 99284; A9270; J7512

== ENCOUNTER 2023-12-04 13:15 | Outpatient (RCR) | payer MEDICARE, BC, SELFPAY | END 2024-04-02 23:59 | disposition home or self-care (01) | PROVIDERS: PCP Family Medicine; Visit Provider Family Medicine | DX: M54.16 Radiculopathy, lumbar region (principal); M51.36 Other intervertebral disc degeneration, lumbar region; Z51.89 Encounter for other specified aftercare | CPT/HCPCS: 97161 ==